=== PATIENT | female | born 1945 | race Caucasian/White ===

== ENCOUNTER 2025-06-16 09:02 | Inpatient (IN) | payer MEDICARE, MEDICAID, SELFPAY ==
[2025-06-16] VITALS (86 sets, daily range): BP systolic 87–139; BP diastolic 41–79; PULSE 55–119; RESP 10–98; TEMP 36.2–37.1; O2SAT 90–100; BMI 21.6
--- NOTE | 2025-06-16 10:35 | PD.EDADULT ---
ED General RME/HPI General Chief complaint: General Adult/Misc Complain Stated complaint: CRITICAL LABS Arrival date/time: 06/16/25 09:02 RME / HPI RME / HPI narrative: 79 year old female with history of COPD, uterine cancer, chronic pain with pain pump in right lower abdomen, depression, anxiety, and LLE DVT on Xarelto presents to the ED BIBA from [facility] for further evaluation and treatment of low hemoglobin today. Per SNF paperwork, patient had labs performed yesterday showing a hemoglobin was 3.5 and hematocrit 12.9. While in the ED patient has no complaints. Denies any blood in stool or urine. Related Data Previous Rx's ?Medication ?Instructions ?Recorded rivaroxaban 15 mg (42)-20 mg (9) See Rx Instructions PO .COMPLEX 07/18/24 tablets in a starter pack (Xarelto #51 tabs DVT-PE Treatment 30-Day Starter) Allergies Allergy/AdvReac Type Severity Reaction Status Date / Time acetaminophen (From Percocet) Allergy Verified 06/16/25 09:20 ceftriaxone Allergy Verified 06/16/25 09:20 codeine Allergy Verified 06/16/25 09:20 hydromorphone Allergy Verified 06/16/25 09:20 metoclopramide Allergy Verified 06/16/25 09:20 morphine Allergy Verified 06/16/25 09:20 oxycodone Allergy Verified 06/16/25 09:20 pentazocine Allergy Verified 06/16/25 09:20 promethazine Allergy Verified 06/16/25 09:20 Review of Systems Review of Systems Systems Reviewed: All systems reviewed, normal except as documented Past Medical History Past Medical History CARDIAC: Positive Cardiac Disorders RESPIRATORY: Positive Asthma REPRODUCTIVE: Positive Breast Cancer MUSCULOSKELETAL: Positive Musculoskeletal Disorders and Arthritis PSYCHO/SOCIAL: Positive Depression and Anxiety OTHER HISTORY: Positive Chemotherapy, Cancer and Breast Cancer Surgical History SURGICAL: Positive Abdominal Surgery, Gastric Bypass Surgery, Joint Replacement, Mastectomy (bilateral) and Hysterectomy Social History SMOKING STATUS: Former smoker SUBSTANCE USE: does not use ED Exam Narrative Physical exam: Physical Exam: General: The vital signs were reviewed. Patient appears incredibly pale including the conjunctiva and lips. The patient is non-toxic, in no apparent distress and appears healthy with a patent airway, no respiratory distress and has no apparent circulatory problems. Head & Scalp: Normocephalic, atraumatic. Face: Appears normal and is without lesions, deformity. Ears: Left external pinna appears normal. Right external pinna appears normal. Eyes: The sclera is anicteric. No obvious photophobia. The Left and Right Orbit/Lid/Conjunctiva appears normal without swelling, discoloration or injection. Nose: The nose is without deformity, discharge or tenderness; Throat: Appears normal. The mucous membranes are pink and moist without exudates, redness or mass seen. The tongue appears normal. Neck: The neck is supple and no apparent mass or adenopathy. Chest: The chest wall is normal in size and symmetry and has no chest wall tenderness or crepitus. The patient displays normal ventilator effort without retractions, accessory muscle use and has adequate air movement bilaterally with no wheezes and no rales. Cardiovascular: Regular rate and rhythm; No murmurs, rubs, or gallops; Gastrointestinal: There is a pain pump in the right lateral abdomen. The abdomen appears normal. No obvious hernias or mass. The abdomen is soft and benign, non-distended, with no pain, no guarding and no rebound tenderness. Bowel sounds are present and normal sounding. No CVA tenderness. Genitourinary: Rectal exam done brown stool guaiac negative. No masses felt. There is a copious amount of poop present. Back/Spine: Normal inspection Extremities/Musculoskeletal/lymphatic: The bilateral upper and lower extremities are warm. There is no evidence of arterial insufficiency. There is no evidence of venous insufficiency/edema. The patient spontaneously moves bilateral upper and lower extremities with no pain and no limitation of movement. There is no apparent, injury or trauma. Skin: The skin is warm, dry and intact. No rashes. No petechia. No purpura. No abnormal bruising. The color is appropriate with no cyanosis. Mental status/Psychiatric: Mental status is appropriate for age. The patient has no apparent delusions, visual hallucinations, no apparent audible hallucinations. The patient has no apparent suicidal thoughts/ideation and no apparent homicidal thoughts/ideation. Neurological: The patient is awake, alert, interactive, cordial, cooperative and is oriented to name and situation. The patient follows commands and answers historical question with no impairment. There is no visual disturbance apparent. The pupils are equal and reactive bilaterally with normal eye movements and no diplopia The bilateral upper and lower extremities have normal strength, normal range of motion and normal functioning. The gait, station and balance not tested due to acuity Course Quality Measures none Orders Category Date Time Status Admit to Inpatient Status Routine Admission 06/16/25 12:39 Active Patient Condition Routine Admission 06/16/25 12:39 Ordered Activity as Tolerated Routine Care 06/16/25 12:40 Ordered Bedside Blood Glucose NOW Care 06/16/25 10:36 Active EKG (ED ONLY) *Do not use* NOW Care 06/16/25 10:36 Completed Intake and Output Routine Care 06/16/25 12:40 Ordered Notify provider NEEDED Care 06/16/25 12:39 Active Obtain weight NOW Care 06/16/25 12:39 Active Post Transfusion H&H X1 Care 06/16/25 12:52 Active Sequential Compression Device QSHIFT Care 06/16/25 12:42 Active Transfuse,blood/blood products NOW Care 06/16/25 11:16 Active Consult to Gastroenterology Stat Cons 06/16/25 12:47 Ordered Diet Carbohydrate Consistent Low Diet 06/16/[address] chest abdomen pelvis wo Stat Exams 06/16/25 12:03 Completed EKG (ED Only) Stat Exams 06/16/25 10:36 Draft XR chest 1V portable Stat Exams 06/16/25 10:36 Completed Alcohol, Blood Medical Stat Lab 06/16/25 10:46 Completed Ammonia Stat Lab 06/16/25 10:46 Completed B-Type Natriuretic Peptide Stat Lab 06/16/25 10:46 Completed Blood Culture (Lab) Stat Lab 06/16/25 10:44 Received CBC AM DRAW Lab 06/17/25 05:00 Ordered CBC AM DRAW Lab 06/18/25 05:00 Ordered CBC AM DRAW Lab 06/19/25 05:00 Ordered CBC Stat Lab 06/16/25 10:46 Completed Comprehensive Metabolic Panel AM DRAW Lab 06/17/25 05:00 Ordered Comprehensive Metabolic Panel AM DRAW Lab 06/18/25 05:00 Ordered Comprehensive Metabolic Panel AM DRAW Lab 06/19/25 05:00 Ordered Comprehensive Metabolic Panel Stat Lab 06/16/25 10:46 Completed Direct Jennifer Stat Lab 06/16/25 10:46 Results Drug Screen,Urine Stat Lab 06/16/25 14:11 Completed Ferritin Stat Lab 06/16/25 12:25 Completed Folate Stat Lab 06/16/25 12:25 Completed Haptoglobin* Stat Lab 06/16/25 13:07 Received Hemoglobin and Hematocrit Stat Lab 06/16/25 12:25 Completed Iron Stat Lab 06/16/25 12:25 Completed Lactate (Lactic Acid) Stat Lab 06/16/25 10:46 Completed Lipid Panel AM DRAW Lab 06/17/25 05:00 Ordered Magnesium AM DRAW Lab 06/17/25 05:00 Ordered Magnesium AM DRAW Lab 06/18/25 05:00 Ordered Magnesium AM DRAW Lab 06/19/25 05:00 Ordered Path Review Blood Smear Stat Lab 06/16/25 10:46 Completed Phosphorous AM DRAW Lab 06/17/25 05:00 Ordered Phosphorous AM DRAW Lab 06/18/25 05:00 Ordered Phosphorous AM DRAW Lab 06/19/25 05:00 Ordered Prothrombin Time with INR Stat Lab 06/16/25 10:46 Completed Red Blood Cells Stat Lab 06/16/25 10:46 Results Reticulocyte Count Stat Lab 06/16/25 12:25 Completed Total Iron Binding Capacity Stat Lab 06/16/25 12:25 Completed Troponin I Stat Lab 06/16/25 10:46 Completed Type and Screen Stat Lab 06/16/25 10:46 Results Urinalysis Stat Lab 06/16/25 14:11 Completed Urinalysis, C/S if Indicated Stat Lab 06/16/25 14:11 Completed Venous Blood Gas Stat Lab 06/16/25 10:46 Completed Vitamin B12 Stat Lab 06/16/25 12:25 Completed Acetaminophen Tab [Tylenol Tab] Med 06/16/25 12:42 Active 650 mg PO Q6H PRN Albuterol/Ipratr Rt Raquel [Duoneb Rt Raquel] Med 06/16/25 12:49 Active 3 ml INH Q6HRRT PRN Fluoxetine HCl [PROzac] Med 06/17/25 09:00 Active 20 mg PO QDAY HYDROcodone/APAP 10/325 [[place] 10/325] Med 06/16/25 12:42 Active 1 tab PO Q4H PRN Lactulose Syrup [Enulose Syrup] Med 06/16/25 12:51 Discontinued 10 gm PO X1 ONE Melatonin Med 06/16/25 21:00 Active 3 mg PO HS Ondansetron Inj [Zofran Inj] Med 06/16/25 12:42 Active 4 mg IVP Q6H PRN Pantoprazole Inj [Protonix Inj] Med 06/16/25 21:00 Active 40 mg IVP Q12HR Pantoprazole/Ns 80Mg IV Premix [Protonix/NS 80mg IV Med 06/16/25 12:04 Discontinued Premix] 80 mg in 100 ml IV X1 Polyeth Glycol/Propylene Glyco [Miralax Pkt] Med 06/16/25 13:00 Active 17 gm PO QDAY Senna/Docusate Sod [Senokot S] Med 06/16/25 13:00 Active 1 tab PO QDAY Sodium Chloride 0.9% 1000 ml [Ns] 2,000 ml Med 06/16/25 10:34 Active IV 50 mls/hr Code Status Routine Oth 06/16/25 12:39 Ordered Oxygen Delivery PRN RT 06/16/25 12:42 Active Vital Signs Vital signs: Vital Signs Temperature 98.2 F 06/16/25 09:15 Pulse Rate 85 06/16/25 09:15 Respiratory Rate 18 06/16/25 09:15 Blood Pressure 107/51 L 06/16/25 09:15 Pulse Oximetry (%) 97 06/16/25 09:15 Oxygen Delivery Method Room Air 06/16/25 09:15 Pulse ox is 97% on room air which is adequate. Critical Care Time Critical Care Time Critical Care Time: Yes Total Critical Care Time (min.): 45 Attestation: The high probability of sudden, clinically significant deterioration in the patient's condition required the highest level of my preparedness to intervene urgently. The services I provided to this patient were to treat and/or prevent clinically significant deterioration. Services included the following: chart data review, reviewing nursing notes and/or old charts, documentation time, collection systems consultant collaboration regarding findings and treatment options, medication orders and management, direct patient care, vital sign assessments and ordering, interpreting and reviewing diagnostic studies and lab tests. Aggregate critical care time includes only time during which I was engaged in work directly related to the patient's care, as described above, whether at bedside or elsewhere in the Emergency Department. It did not include time spent performing other reported procedures or the services of residents, students, nurses or physician assistants. Discharge Plan Plan Patient Disposition: Admit Acute Care w/in Hospital Problem List Clinical Impression: Severe anemia, Microcytosis, Chronic pain MDM Narrative MDM hospital course: Patient was sent here for abnormal labs and reported on the nursing transfer paperwork shows the hemoglobin was 3.5 but no date was assigned to that number. Will get labs and transfuse accordingly. Patient has no acute complaints at this time of that she has chronic pain with chronic pain pump in the right lateral abdomen. Medical workup confirms the severe anemia. She is also got microcytic indices. The cause of her anemia is unclear there is no obvious blood loss in the GI track on rectal exam today. She has on Xarelto and so a scan of the chest abdomen pelvis looking for occult blood collection somewhere was ordered. Because of the severe anemia and the need for a large volume of blood and her age we can admit her for further workup of this severe anemia. Noted blood pressure has been averaging 101-107 range since she is here. She denied any injury or trauma. Her most recent hemoglobins were within 9-10 range in the last year. She states she had her last transfusion a long time ago. Of course patient could be nutritionally deficient and therefore iron studies were just ordered. Spoke with the hospitalist and they will be admitting. CT was done and found no occult blood he had an in the chest abdomen pelvis. Note this was reviewed after the patient was already admitted source of severe anemia is unclear at this time. Again possibly nutritional. Clinical Information Provided by patient and EMS Medical Records [facility]ed [facility] ([facility] admission 07/16/2024 through 07/19/2024 ), EMS and [facility] (I reviewed pmhx and medication list from [facility] ) Meds/Rx Considered, not Ordered None Labs/Rad/Tests considered, not Ordered None Chronic Illness/Social Conditions which may negatively complicate care or outcome(s)-explain: [facility]/debilitated EKG Interpretation EKG #1: Date/time of EK06/16/25 10:54 AM EKG interpretation: Sinus rhythm with occasional PVCs, rate 67, no STEMI Lab Interpretation Labs: see narrative above Imaging Imaging interpretation: see narrative above Radiology reports / interpretation(s): Ordering Physician: Williams Reynoso MD Date of Service: 06/16/25 Procedure(s): XR chest 1V portable Accession Number(s): [id number] cc: Praneeth Sheikh MD; Williams Reynoso MD; Ethan Wallace MD~ Examination: AP chest single view Technique one AP portable semiupright chest single view Date and time: June 16, 2025 1056 hours Comparison July 16, 2024 INDICATIONS: Chest pain today. FINDINGS: No significant cardiac enlargement Bilateral axillary surgical clips No lobar pneumonia or pulmonary edema Prominent osteopenia IMPRESSION: No pneumonia or pulmonary edema Dictated By: Ethan Wallace MD Signed By: <Electronically signed by Ethan Wallace MD in OV> 06/16/25 1116 Medication Administration(s) Medication Administration History Acetaminophen (Acetaminophen 325 Mg Tablet) 650 mg PO Q6H PRN PRN Reason: Shea 1-3 or Fever >100.3 Stop: 07/16/25 12:41 Hydrocodone Bitart/Acetaminophen (Hydrocodone/Apap 10/325 Tab) 1 tab PO Q4H PRN PRN Reason: PAIN SCALE 4-10(Mod-Sev Stop: 06/21/25 12:41 Last Admin: 06/16/25 13:18 Dose: 1 tab Documented By: CG Albuterol/Ipratropium (Albuterol/Ipratropium (Duoneb) Rt Raquel 3 Ml Nebu) 3 ml INH Q6HRRT PRN PRN Reason: Wheezing Stop: 07/16/25 12:59 Fluoxetine HCl (Fluoxetine Hcl 10 Mg Capsule) 20 mg PO QDAY VANESSA Stop: 07/17/25 08:59 Sodium Chloride (Ns) 2,000 mls @ 50 mls/hr IV .Q24H ONE Stop: 06/17/25 10:33 Last Admin: 06/16/25 13:18 Dose: 50 mls/hr Documented By: CG Melatonin (Melatonin 3 Mg Tablet) 3 mg PO HS VANESSA Stop: 07/16/25 20:59 Ondansetron HCl (Ondansetron Inj 2 Mg/Ml Inj 2 Ml) 4 mg IVP Q6H PRN; Protocol PRN Reason: NAUSEA OR VOMITING Stop: 07/16/25 12:41 Pantoprazole Sodium (Pantoprazole Inj 40 Mg Vial) 40 mg IVP Q12HR VANESSA Stop: 07/16/25 20:59 Polyethylene Glycol (Polyethylene Glycol 17 Gm Packet) 17 gm PO QDAY VANESSA Stop: 07/16/25 12:59 Last Admin: 06/16/25 14:01 Dose: Not Given Documented By: GM Non-Admin Reason: Patient Refused Sennosides (Senna/Docusate Sod 1 Tab Tablet) 1 tab PO QDAY VANESSA; Protocol Stop: 07/16/25 12:59 Last Admin: 06/16/25 14:36 Dose: 1 tab Documented By: CG Discontinued Medications Pantoprazole Sodium (Protonix/Ns 80mg Iv Premix) 80 mg in 100 mls @ 400 mls/hr IV X1 ONE Stop: 06/16/25 12:18 Last Infusion: 06/16/25 14:52 Dose: Infused Documented By: Admin: 06/16/25 14:33 Dose: 400 mls/hr Documented By: JOHN Iron Sucrose (Iron Sucrose Cplx Inj 20 Mg/Ml Vial 5 Ml) 100 mg IVP X1 ONE Stop: 06/16/25 16:05 Last Admin: 06/16/25 16:43 Dose: 100 mg Documented By: JOHN Lactulose (Lactulose Syrup 20 Gm/30 Ml Udc) 10 gm PO X1 ONE; Protocol Stop: 06/16/25 12:52 Last Admin: 06/16/25 14:34 Dose: Not Given Documented By: JOHN Non-Admin Reason: Patient Refused See above Diagnosis Most likely dx, and/or detailed dx discussion: Severe anemia Microcytosis Chronic pain Dispositon Disposition: Admit
--- NOTE | 2025-06-16 10:36 | EKG_ITS ---
[facility] Test Date: 2025-06-16 Pat Name: ED AMOS Department: Room: - Gender: Female [employer] Logger: : 1945 Requested By: Williams Reynoso Order Number: [id number] Reading MD: Williams Reynoso Measurements Intervals [place] Rate: 67 P: 98 [place]: 192 QRS: 49 QRSD: 90 T: 83 QT: 411 QTc: 436 Interpretive Statements SINUS RHYTHM WITH OCCASIONAL SUPRAVENTRICULAR PREMATURE COMPLEXES LOW QRS VOLTAGE [QRS DEFLECTION < 0.5/1.0 mV IN LIMB/CHEST LEADS] Compared to ECG 07/16/2024 16:22:06 First degree AV block no longer present /store/S0/[id number]/ecg/[id number].pdf
[2025-06-16 10:58] LABS: Lactate (Lactic Acid) 1.2 mMol/L (0.4-2.0)
[2025-06-16 11:00] LABS: Base Excess, Venous 2 (-3-3); O2 Saturation, Venous 95 % (96-97); PCO2, Venous 30 mmHg (36-56); PO2, Venous 57 mmHg (15-58); pH, Venous 7.54 (7.33-7.66)
--- NOTE | 2025-06-16 11:09 | PC.NURSE ---
Called teddy spoke with Jaison regarding all xray results, per Jaison he will contact Dr. Evelin strong reading images.
--- NOTE | 2025-06-16 11:10 | PC.NURSE ---
Called teddy spoke with Jaison regarding all xray results, per Jaison he will contact Dr. Evelin strong reading images.
[2025-06-16 11:11] LABS: Basophils # (Auto) 0.0 Thou/mm3 (0.0-0.2); Basophils % (Auto) 0 % (0-2.5); Eosinophils # (Auto) 0.1 Thou/mm3 (0.0-0.5); Eosinophils % (Auto) 4 % (0-10); Immature Granulocytes Auto 0.02 Thou/mm3 (0.00-0.00); Lymphocytes # (Auto) 0.5 Thou/mm3 (1.0-4.8); Lymphocytes % (Auto) 17 % (10-50); Mean Corpuscular HGB Conc 24.8 g/dl (31.0-37.0); Mean Corpuscular Hemoglobin 14.4 pg (25.0-35.0); Mean Corpuscular Volume 58 fL (80-100); Monocytes # (Auto) 0.3 Thou/mm3 (0.0-0.8); Monocytes % (Auto) 10 % (0-12); Neutrophils # (Auto) 1.9 Thou/mm3 (1.8-7.7); Neutrophils % (Auto) 68 % (37-80); Nucleated Red Blood Cell # 0.00 Thou/mm3 (0.00-0.00); Nucleated Red Blood Cell % 0 /100 WBC (0); Platelet Count 90 Thou/mm3 (140-440); RDW Standard Deviation 48.9 fL (36.4-46.3); Red Blood Count 2.02 Miln/mm3 (4.00-5.20)
[2025-06-16 11:14] LABS: White Blood Count 2.8 Thou/mm3 (3.6-11.0)
[2025-06-16 11:16] LABS: Hematocrit 11.7 % (36.0-46.0)
[2025-06-16 11:17] LABS: INR 1.5 (0.9-1.3); Prothrombin Time 16.2 Seconds (9.0-12.2)
[2025-06-16 11:21] LABS: Ammonia 15 uMol/L (11-32); B-Type Natriuretic Peptide 187 pg/mL (0-100)
[2025-06-16 11:30] LABS: Path Review Blood Smear Sent to Pathologist
[2025-06-16 11:36] LABS: Alanine Aminotransferase < 7 U/L (10-49); Albumin, Serum 3.8 gm/dL (3.4-4.8); Albumin/Globulin Ratio 1.9 (1.2-2.2); Alcohol, Blood Medical < 10.0 mg/dL (0-10.0); Alkaline Phosphatase 46 U/L (46-116); Anion Gap 7 (7-16); Aspartate Amino Transferase 11 U/L (0-34); BUN/Creatinine Ratio 23 Ratio (12-20); Bilirubin,Total 0.3 mg/dL (0.3-1.2); Blood Urea Nitrogen 14 mg/dL (9-23); Calcium 8.5 mg/dL (8.3-10.6); Calcium (Corrected) 8.7 mg/dL (8.5-10.1); Carbon Dioxide 27.1 mMol/L (20.0-31.0); Chloride 107 mMol/L (98-107); Creatinine (Component) 0.6 mg/dL (0.6-1.3); Estimated Creatinine Clearance 63.5 mL/min (>60); Globulin 2.0 gm/dL (2.3-3.5); Glucose 109 mg/dL (74-106); Osmolality,Calculated 282 (275-295); Potassium 3.9 mMol/L (3.4-5.1); Sodium 141 mMol/L (136-145); Total Protein 5.8 gm/dL (5.7-8.2); Troponin I < 0.020 ng/mL (0.0-0.045); eGFR > 60 See Note
[2025-06-16 12:00] LABS: Hemoglobin 2.9 g/dL (12.0-16.0)
--- NOTE | 2025-06-16 12:03 | XR_ITS ---
Examination: CT chest, without intravenous contrast. CT abdomen, without intravenous contrast. CT pelvis, without intravenous contrast. 2-D sagittal and coronal reconstructions. 3-D reconstructions. Date and time of exam:June 16, 2025 1233 hours INDICATIONS: Severe anemia unknown etiology, history pulmonary artery emboli on CT angiogram July 18, 2024 CTDI vol (mgy) 6.4 DLP (MGycm)450 Technique: Multiple CT images, 3.0 mm slice thickness, obtained chest, abdomen, pelvis, with the high-resolution 64 slice scanner.. Sagittal and coronal 2-D reconstructions are obtained. 3-D reconstructions Low dose protocols were performed. One or more of the following dose reduction techniques were used; automated exposure control, adjustment of the mA and/or KV according to patient size, use of iterative reconstruction technique. Findings: No thoracic aortic aneurysmal dilatation No paratracheal tracheobronchial or bronchopulmonary adenopathy No pneumonia, pulmonary edema or pleural disease 4 mm pulmonary nodule left upper lobe image 51 Retrocardiac gastric hernia. No focal liver or splenic lesion Absent gallbladder Common hepatic duct 20 mm No common bile duct stones noted No pancreatic or adrenal mass No renal or ureteral calculi, no hydronephrosis Abundant stool throughout the colon No obstruction No pericecal inflammatory change Urinary bladder intact Absent uterus No pelvic mass Severe osteopenia IMPRESSION: 4 mm pulmonary nodule left upper lobe No pneumonia or pulmonary edema Enlarged common hepatic duct 20 mm, recommend hepatobiliary sonography follow-up Large amounts of stool throughout the colon, no obstruction
[2025-06-16 12:48] LABS: Hematocrit 11.6 % (36.0-46.0); Hemoglobin 2.9 g/dL (12.0-16.0)
[2025-06-16 13:01] LABS: Folate 14.28 ng/mL (>5.38); Vitamin B12 794 pg/mL (211-911)
[2025-06-16 13:10] LABS: Immature Reticulocyte Fraction 31.1 % (3.0-15.9); Reticulocyte % (Auto) 1.5 % (0.5-1.5); Reticulocyte Absolute Auto 29.6 Biln/L (25.0-75.0); Reticulocyte Hgb Content 14.3 pg (28.0-35.0)
[2025-06-16] MEDS: SODIUM CHLORIDE 0.9% 1000 ML 2,000 ML 50 ML IV (13:18)
[2025-06-16 13:34] LABS: Ferritin 6 ng/mL (7.3-270.7); Iron 8 mcg/dL (50-170); Total Iron Binding Capacity 354 mcg/dL (250-425)
--- NOTE | 2025-06-16 14:03 | PD.RESHP ---
Documentation for date of: 06/16/25 Patient is 79-year-old female with a past medical history of COPD, diabetes mellitus type 2 non insulin depdent, history of PE on Xarelto, history of chronic pain disorder on Fentantly pump and norco, history of ovarian and breast cacner. Patient presented to the emergency room with chief complain of low hemoglobin after being sent to the emergency room form PCP. Patient presented with hgb of 2.9. Patient complaining of fatigue. Acute blood loss anemia, currently holding Xarelto given increased risk of bleeding, specially with ulcers. 3 units of PRBCs order and follow up with hgb and Hct post transfusion. Consult GI, Dr. Harrison, for possible EGD/Colonoscopy. FOBT pending, unable to obtain in ER. Reti count, Haptolgoin, and iron panel ordered. Iron X 1. Consult dr. Cosme for pancytopenia on admission. HPI History of Present Illness Chief complaint: Low hemoglobin at [facility] History of present illness: Patient is an 79-year-old female with past medical history of ovarian cancer, depression, anxiety, chronic pain (with pain pump), and left lower extremity DVT (on Xarelto) brought to the hospital for low hemoglobin. For approximately 6 weeks patient reports that she has had headaches and dizziness, poor appetite, and unintentional weight loss. She has been so unsteady at her fpc that she has not been able to get out of the chair to be showered. In addition she states that she has forced herself to eat but has still lost 17 pounds over the last 6 months, and 6 pounds over the last month (self-reported). Otherwise patient states that she is at her baseline. Patient is receiving 1 unit PRBCs, with 2 units on standby. Review of Systems Review of Systems Narrative Review of Systems: As per HPI; in addition, patient reports significant longstanding abdominal pain secondary to adhesions from ovarian cancer surgeries, blepharospasm, poor vision in both eyes with potential cataract in right eye, constipation (approximately 2 bowel movements a week) Past Medical History Past Medical History Comments PMH COMMENT: PMH: Ovarian cancer (diagnosed 2008; has not seen oncology in 7 years per patient), depression, anxiety, left lower extremity DVT, breast cancer, heel spurs, chronic pain (with SHOW HOST pump) PSH: Ovarian cancer surgery (with multiple follow-up procedures secondary to adhesions), double mastectomy (with placement and then removal of silicone breast implants secondary to allergic reaction followed by reconstructive surgery), cholecystectomy, surgery for heel spurs, gastric bypass Social history: [id number] smoker (17 years x 3 packs/day; quit in 1983); no alcohol or drug use Exam Vital Signs Temp Pulse Resp BP Pulse Ox O2 Del Method 98.4 F 77 20 119/55 L 97 Room Air 06/16/25 13:30 06/16/25 13:30 06/16/25 13:30 06/16/25 13:30 06/16/25 13:30 06/16/25 13:15 Narrative Exam Constitutional: Alert and oriented; able to provide own medical history HEENT: Obvious blepharospasm requiring patient to open left eye manually Respiratory: Lungs clear to auscultation Cardiovascular: Regular rate and rhythm Abdominal: Significant left-sided abdominal pain on palpation; patient states that this is not new and is secondary to adhesions from previous surgeries Extremity: No lower extremity edema Skin: Extremely pale Results: Labs 06/17/25 04:54 06/17/25 04:54 Labs: Short CBC 06/16/25 06/16/25 Range/Units 10:46 12:25 WBC 2.8 L (3.6-11.0) Thou/mm3 Hgb 2.9 L* 2.9 L* (12.0-16.0) g/dL Hct 11.7 L* 11.6 L* (36.0-46.0) % Plt Count 90 L (140-440) Thou/mm3 BMP 06/16/25 10:46 Sodium 141 Potassium 3.9 Chloride 107 Carbon Dioxide 27.1 BUN 14 Creatinine 0.6 Glucose 109 H Calcium 8.5 Cardiac Enzymes 06/16/25 Range/Units 10:46 Troponin I < 0.020 (0.0-0.045) ng/mL Liver Function 06/16/25 Range/Units 10:46 Total Bilirubin 0.3 (0.3-1.2) mg/dL AST 11 (0-34) U/L ALT < 7 L (10-49) U/L Alkaline Phosphatase 46 (46-116) U/L Albumin 3.8 (3.4-4.8) gm/dL ABG Interpretation ABG results: 06/16/25 10:46 VBG pH 7.54 VBG pCO2 30 L VBG pO2 57 VBG Base Excess 2 Quality Measures Quality Measures none Advance care planning discussed with:: patient (snf paperwork ) Medications Home Medications and Allergies Allergies Allergy/AdvReac Type Severity Reaction Status Date / Time acetaminophen (From Percocet) Allergy Verified 06/16/25 09:20 ceftriaxone Allergy Verified 06/16/25 09:20 codeine Allergy Verified 06/16/25 09:20 hydromorphone Allergy Verified 06/16/25 09:20 metoclopramide Allergy Verified 06/16/25 09:20 morphine Allergy Verified 06/16/25 09:20 oxycodone Allergy Verified 06/16/25 09:20 pentazocine Allergy Verified 06/16/25 09:20 promethazine Allergy Verified 06/16/25 09:20 Visit Medications Acetaminophen (Acetaminophen 325 Mg Tablet) 650 mg PO Q6H PRN PRN Reason: Shea 1-3 or Fever >100.3 Stop: 07/16/25 12:41 Hydrocodone Bitart/Acetaminophen (Hydrocodone/Apap 10/325 Tab) 1 tab PO Q4H PRN PRN Reason: PAIN SCALE 4-10(Mod-Sev Stop: 06/21/25 12:41 Last Admin: 06/16/25 13:18 Dose: 1 tab Albuterol/Ipratropium (Albuterol/Ipratropium (Duoneb) Rt Raquel 3 Ml Nebu) 3 ml INH Q6HRRT PRN PRN Reason: Wheezing Stop: 07/16/25 12:59 Fluoxetine HCl (Fluoxetine Hcl 10 Mg Capsule) 20 mg PO QDAY VANESSA Stop: 07/17/25 08:59 Sodium Chloride (Ns) 2,000 mls @ 50 mls/hr IV .Q24H ONE Stop: 06/17/25 10:33 Last Admin: 06/16/25 13:18 Dose: 50 mls/hr Melatonin (Melatonin 3 Mg Tablet) 3 mg PO HS VANESSA Stop: 07/16/25 20:59 Ondansetron HCl (Ondansetron Inj 2 Mg/Ml Inj 2 Ml) 4 mg IVP Q6H PRN; Protocol PRN Reason: NAUSEA OR VOMITING Stop: 07/16/25 12:41 Pantoprazole Sodium (Pantoprazole Inj 40 Mg Vial) 40 mg IVP Q12HR VANESSA Stop: 07/16/25 20:59 Polyethylene Glycol (Polyethylene Glycol 17 Gm Packet) 17 gm PO QDAY VANESSA Stop: 07/16/25 12:59 Last Admin: 06/16/25 14:01 Dose: Not Given Sennosides (Senna/Docusate Sod 1 Tab Tablet) 1 tab PO QDAY VANESSA; Protocol Stop: 07/16/25 12:59 Discontinued Medications Pantoprazole Sodium (Protonix/Ns 80mg Iv Premix) 80 mg in 100 mls @ 400 mls/hr IV X1 ONE Stop: 06/16/25 12:18 Lactulose (Lactulose Syrup 20 Gm/30 Ml Udc) 10 gm PO X1 ONE; Protocol Stop: 06/16/25 12:52 Assessment & Plan Plan Patient is an 79-year-old female with past medical history of ovarian cancer (diagnosed 2008), depression, anxiety, left lower extremity DVT, breast cancer, heel spurs, chronic pain (with pain pump) presenting to the hospital with low hemoglobin. #Symptomatic Acute Microcytic Anemia #GI Bleed #History of Pulmonary Embolism #Pancytopenia Patient presented with acute anemia, likely microcytic given MCV, concern for lower GI bleed history xarelto use, given increased risk of Xarelto with bleeding in ulcers, ulcer can not be ruled out vs lower GI Bleed vs malignancy given pancytopenia Diagnostics: 2.9 (confirmed on repeat; previous baseline was around 10 as of 06/2024), platelets were 90 (previous baseline was 230 as of 06/2024), INR of 1.5 (previous baseline was 1.1 as of 06/2024). Iron is also low (8); BNP is high (187). Plan: -IV Iron Sucrose 100 mg X 1 -Protonix 40 mg BID -HOLD Xarelto -3 units of PRBCs -Repeat Post Transfusion, Hgb & Hct after 2 units, may transfuse 3 unit if need be -FOBT -Iron Panel, Haptoglobin, Reticulocyte Count, B12, Folate -Consult Dr. Harrison, appreciate recommendations -Consult Dr. Cosme, appreciate recommendations -compression device, no anticoagulation, given risk of bleeding #History of Major Depression Patient has a past medical history of Major Depression per chart review from SNF. Patient's home medication of Fluoxetine 20 mg PO Qday. No signs of SI or HI. Plan: -Continue Fluoxetine 20 mg PO Qday -Monitor for SI or HI. #Constipation Per images, patient has constipation, likely secondary to Opioid dependece given history of Fentanly pump and Norc 10. Given acute anemia, lactulose X 1 and Mirlax X 1 only. Continue to monitor BP. Plan: -Lactulose X 1 -Mirlax X1 -Senna Scheduled #Chronic Pain #History of Blepharospasm #Generalized Muscle weakness Patient has an extensive history of Opioid use disorder for chronic pain, likely secondary to surgeries and history of malignancy. Plan: -Monitor for signs of respiratory depression -continue SHOW HOST pump, norco 10 as per home -Narcan PRN #Hx COPD Patient has a past medical history of COPD per chart review from SNF, home medication includes Ipratroipum-Albuterol Plan -Continue Albuterol/Ipratropium PRN #History of Ovarian/Breast Cancer Health Maintenance: Disp: Pt is currently admitted to floors for further management of acute blood loss anemia, pending blood transfusion, repeat post transfusion Hgb & Hct. FEN: Regular Diet DVT: Compression Device Code: DNR Case Discussed with Attending Dr. Goldman and resident Dr. Kristofer Conde PGY 1 Internal Medicine - The patient's plan was discussed with attending Dr. Jones Miner MD PGY2 Internal Medicine Attending Provider Attestation/Addendum I have examined the patient, reviewed labs and imaging findings, discussed the case with the resident(s), and reviewed entered orders. I agree with the plan of care as outlined in this note, with these additional summaries/recommendations: After examination of the patient and review of the clinical data, I feel that this patient needs admission to the hospital for further treatment and evaluation. Patient is a 79-year-old female with a medical history of uterine cancer, urinary incontinence, COPD on home oxygen, chronic constipation, seasonal allergies, primary hypertension, deep vein thrombosis on Xarelto, and insomnia presents to [facility] emergency department on 06/16/2025 with chief complaint of abnormal lab work. Patient is a resident at [facility] transitional care and had a hematology panel done yesterday which revealed severe anemia. Patient seen at bedside. She appears pale and has conjunctival pallor. Patient diagnosed with symptomatic anemia, pancytopenia, iron deficiency anemia, and possibly acute blood loss anemia secondary to GI bleed. For patient's symptomatic anemia 3 units PRBCs have been ordered. We will transfuse 2 units and check posttransfusion hemoglobin/hematocrit and transfuse further as needed. Order FOBT. Consult gastroenterology,. Patient also noted to have pancytopenia with WBC count 2.8, hemoglobin 2.9, and thrombocytopenia at 90. This is likely multifactorial secondary to possible acute blood loss plus severe iron deficiency anemia with ferritin 6, and possibly anemia of chronic disease from return of malignancy. Patient has a history of uterine/ovarian and breast cancer. She reportedly has not followed up with an oncologist in many years and has lost 17 pounds in the last couple months. Consult in-house oncology, recommendations appreciated. Patient has fentanyl pain pump which we can continue. Hold home Xarelto for history of deep vein thrombosis. SCDs okay for now. Risks and benefits of holding anticoagulation explained to patient. CT abdomen and pelvis showed large amount of stool throughout the colon although we will be cautious with laxatives in the setting of potential GI bleed. CT revealed enlarged common hepatic duct which is most likely secondary to previous cholecystectomy. Patient will be admitted to telemetry. Patient updated on the plan and agreement. All questions answered to satisfaction. Please see residents note for additional details of management. Dr. Jones MD
[2025-06-16] MEDS: PANTOPRAZOLE/NS 80MG IV PREMIX 80 MG/100 ML BAG 400 MG IV (14:33)
[2025-06-16] MEDS: SENNA/DOCUSATE SOD 1 TAB TABLET PO (14:36)
[2025-06-16 14:37] LABS: Collection Type, Urine Catheter
[2025-06-16 14:46] LABS: Bilirubin,Urine Negative (Negative); Blood,Urine Negative (Negative); Clarity,Urine Clear (Clear/Hazy); Color,Urine Yellow (Lt Yel-Yel); Culture Indicated,Urine Not Indicated; Glucose, Urine Negative (Negative); Ketones,Urine Negative (Negative); Leukocyte Esterase,Urine Positive (Negative); Nitrite,Urine Negative (Negative); PH,Urine 5.5 (5.0-7.0); Protein,Urine Negative (Neg - Trace); RBC,Urine < 1 /hpf (0-3); Specific Gravity,Urine 1.021 (1.001-1.035); Squamous Epithelial Cell,Urine 1 /hpf (0-5); Urobilinogen,Urine Negative mg/dL (0.0-1.0); WBC,Urine 2 /hpf (0-5)
[2025-06-16 14:53] LABS: Amphetamine/Methamp Scrn,U Negative (Negative); Barbiturate Screen,Urine Negative (Negative); Benzodiazepines Screen,Urine Negative (Negative); Benzoylecgonine Screen, Ur Negative (Negative); Fentanyl Screen,Urine Positive (Negative); Opiate Screen,Urine Positive (Negative); THC Screen,Urine Negative (Negative)
[2025-06-16] MEDS: IRON SUCROSE CPLX INJ 20 MG/ML VIAL 5 ML 100 MG IVP (16:43)
--- NOTE | 2025-06-16 18:34 | ESCONSULT_ITS ---
HPI Data of Consult Requesting Physician: Casimiro Goldamn MD Primary Care Provider: Praneeth Sheikh MD Consult Narrative Reason for consult: severe anemia History of present illness: 79-year-old female with a past medical history of COPD, ovarian cancer in 2008, breast cancer in 1991, chronic pain managed with an intrathecal pain pump in the right lower abdomen, and a history of left lower extremity DVT on Xarelto, presented to the ED on 06/16 for evaluation of low hemoglobin. She was transported by ambulance from [facility]. The patient reports feeling cold and fatigued but denies any other acute complaints. She notes unintentional weight loss of 6 pounds over the past month despite increased efforts to eat. She attributes some of this to oral blisters that developed a few weeks ago, which made eating difficult at the time. She also endorses occasional lightheadedness, particularly with increased activity, which improves upon sitting. Additionally, she reports intermittent palpitations. She denies chest pain, shortness of breath, weakness, hematochezia, hematemesis, easy bruising, or NSAID use. Her last colonoscopy was performed over 10 years ago and was reportedly normal. ED Course - Vitals: BP 107/51, HR 85, RR 18, T 98.2F, O2 sat 97% on room air - Labs: WBC 2.8, Hgb 2.9, Hit 11.7, MCV 58, Plt 90, pending blood smear; PT 16.2, INR 1.5; BUN 14, Cr 0.6, BUN:Cr ratio 23, Iron 8, TIBC 354, Ferritin 6; troponin < 0.020, BNP 187, UA showed positive leukocyte esterase and negative bacteria - Imaging: CXR showed no pneumonia or pulmonary edema, EKG showed sinus rhythm with occasional supraventricular premature complexes, CT chest showed 4 mm pulmonary nodule in L upper lobe; CTAP showed enlarged common hepatic duct 20mm, large amounts of stool throughout colon, no obstruction - Treatment: sodium chloride 50 mls/hr, hydrocodone/acetaminophen 1 tab, Pantoprazole 400 mls/hr, iron sucrose 100 mg x1, sennosides 1 tab. Patient refused lactulose and polyethylene glycol. Transfused with 1 unit of pRBCs. cc:: cc: Casimiro Goldman MD Review of Systems Review of Systems Narrative Review of Systems: All 13 review of systems are negative excepted listed above in HPI. Past Medical History Past Medical History Comments PMH COMMENT: PMH: as stated in HPI + longstanding abdominal pain secondary to adhesions from ovarian cancer surgeries, blepharospasm, constipation, depression, anxiety PSHx: appendectomy, cholecystectomy, hysterectomy, double mastectomy, gastric bypass, bilateral total knee replacement Allergies: acetaminophen, ceftriaxone, codeine, Dilaudid, Reglan, morphine, oxycodone, promethazine, pentazocine Medications: pending med rec Social history: 51 pack year smoker (17 years x 3 packs a day; quit in 1983), no alcohol or illicit drug use Meds Home Medications and Allergies Allergies Allergy/AdvReac Type Severity Reaction Status Date / Time acetaminophen (From Percocet) Allergy Verified 06/16/25 09:20 ceftriaxone Allergy Verified 06/16/25 09:20 codeine Allergy Verified 06/16/25 09:20 hydromorphone Allergy Verified 06/16/25 09:20 metoclopramide Allergy Verified 06/16/25 09:20 morphine Allergy Verified 06/16/25 09:20 oxycodone Allergy Verified 06/16/25 09:20 pentazocine Allergy Verified 06/16/25 09:20 promethazine Allergy Verified 06/16/25 09:20 Exam Vital Signs Temp Pulse Resp BP Pulse Ox O2 Del Method 98.2 F 71 16 120/72 96 Room Air 06/16/25 18:31 06/16/25 18:31 06/16/25 18:31 06/16/25 18:31 06/16/25 18:31 06/16/25 18:16 Narrative Exam Physical Exam General: awake and in no acute distress, conversational HEENT: normocephalic, atraumatic, dry mucuous membranes of mouth, no mouth ulcers, eyes were closed due to blepharospasm Heart: RRR, normal S1 and S2, no murmurs, no edema in lower extremities Lungs: clear to auscultation with no wheezing or crackles Abdomen: soft, non distended, pain pump in right lateral abdomen, no guarding and no rebound tenderness Neurologic: alert and oriented x3, no gross neurological deficit, and patient able to move all 4 extremities Skin: no rash, no ecchymosis, extremely pale Results Labs 06/16/25 12:25 06/16/25 10:46 Labs: Short CBC 06/16/25 06/16/25 Range/Units 10:46 12:25 WBC 2.8 L (3.6-11.0) Thou/mm3 Hgb 2.9 L* 2.9 L* (12.0-16.0) g/dL Hct 11.7 L* 11.6 L* (36.0-46.0) % Plt Count 90 L (140-440) Thou/mm3 BMP 06/16/25 10:46 Sodium 141 Potassium 3.9 Chloride 107 Carbon Dioxide 27.1 BUN 14 Creatinine 0.6 Glucose 109 H Calcium 8.5 Cardiac Enzymes 06/16/25 Range/Units 10:46 Troponin I < 0.020 (0.0-0.045) ng/mL Liver Function 06/16/25 Range/Units 10:46 Total Bilirubin 0.3 (0.3-1.2) mg/dL AST 11 (0-34) U/L ALT < 7 L (10-49) U/L Alkaline Phosphatase 46 (46-116) U/L Albumin 3.8 (3.4-4.8) gm/dL Urine 06/16/25 Range/Units 14:11 Urine Color Yellow (Lt Yel-Yel) Urine Clarity Clear (Clear/Hazy) Urine pH 5.5 (5.0-7.0) Ur Specific Ute 1.021 (1.001-1.035) Urine Protein Negative (Neg - Trace) Urine Glucose (UA) Negative (Negative) ABG Interpretation ABG results: 06/16/25 10:46 VBG pH 7.54 VBG pCO2 30 L VBG pO2 57 VBG Base Excess 2 Assessment and Plan Additional Assessment & Plan Additional Plan: 79-year-old female with a past medical history of COPD, ovarian cancer in 2008, breast cancer in 1991, chronic pain managed with an intrathecal pain pump in the right lower abdomen, and a history of left lower extremity DVT on Xarelto admitted for severe anemia of unclear source. #Severe anemia of unclear etiology Critically low hemoglobin (Hgb 2.9, Hct 11.7) and associated pancytopenia (WBC 2.8, Plt 90); retic count 1.5 MCV 58, Iron 8, Ferritin 6, TIBC 354 - blood smear pending DDX: GI blood loss vs bone marrow suppression vs hematologic malignancy vs nutritional deficiencies CT abd/pelvis: enlarged common hepatic duct 20mm, large amounts of stool throughout colon, no obstruction Plan - rule out GI source of bleeding: schedule for fiberoptic EGD and colonoscopy with potential biopsy and therapeutic intervention under moderate IV sedation - bowel prep with golytely with clear liquid diet, once clear then NPO - FOBT pending - continue IV protonix 40 mg BID - continue pRBC transfusions as needed based on symptoms and hemoglobin trend - monitor H&H Patient plan of care was discussed with attending physician, Dr. Harrison. Ashley Eckert DO PGY-1 attending attestation Patient examined Laboratory data reviewed Imaging studies reviewed Discussed the care plan in detail Schedule the patient for upper endoscopy and colonoscopy after GoLytely prep for tomorrow Also recommend hematology consultation for possible bone marrow biopsy and aspirate Thank you for the opportunity to participate in the care of this patient
--- NOTE | 2025-06-16 19:05 | PC.NURSE ---
Wire Stitcher Machine assumes care of patient at this time, pt is noted to be A/O x 3 with c/o chronic generalized pain, pt rates pain 4/10 at this time, pt is tolerating PRBCs transfusion at a rate of 175 ml/hr, 3 of 3 units at this time. Pt noted to have pain pump to R lower abd. bed in low position and locked with side rails up x 2 and call light in reach of patient
--- NOTE | 2025-06-16 19:50 | PC.NURSE ---
assisted pt off bed reveles. florin care provided, new brief and purewick in place.
--- NOTE | 2025-06-16 20:38 | PC.NURSE ---
Report called to floor nurse CLARENCE Lopez
[2025-06-16] MEDS: MELATONIN 3 MG TABLET PO (22:00)
[2025-06-16 22:19] LABS: Hematocrit 26.4 % (36.0-46.0); Hemoglobin 8.9 g/dL (12.0-16.0)
[2025-06-16] MEDS: NA SU/NAHCO3/KC/PEG (Golytely) 4,000 ML BTL 4000 ML PO (22:55)
[2025-06-17] VITALS (9 sets, daily range): BP systolic 112–141; BP diastolic 61–81; PULSE 55–85; RESP 15–97; TEMP 36.2–36.8; O2SAT 95–97; BMI 21.9
[2025-06-17 05:35] LABS: Basophils # (Auto) 0.0 Thou/mm3 (0.0-0.2); Basophils % (Auto) 1 % (0-2.5); Eosinophils # (Auto) 0.1 Thou/mm3 (0.0-0.5); Eosinophils % (Auto) 2 % (0-10); Hematocrit 26.4 % (36.0-46.0); Immature Granulocytes Auto 0.09 Thou/mm3 (0.00-0.00); Lymphocytes # (Auto) 0.3 Thou/mm3 (1.0-4.8); Lymphocytes % (Auto) 6 % (10-50); Mean Corpuscular HGB Conc 33.0 g/dl (31.0-37.0); Mean Corpuscular Hemoglobin 23.8 pg (25.0-35.0); Mean Corpuscular Volume 72 fL (80-100); Monocytes # (Auto) 0.5 Thou/mm3 (0.0-0.8); Monocytes % (Auto) 9 % (0-12); Neutrophils # (Auto) 4.1 Thou/mm3 (1.8-7.7); Neutrophils % (Auto) 80 % (37-80); Nucleated Red Blood Cell # 0.04 Thou/mm3 (0.00-0.00); Nucleated Red Blood Cell % 1 /100 WBC (0); Platelet Count 89 Thou/mm3 (140-440); RDW Standard Deviation 69.8 fL (36.4-46.3); Red Blood Count 3.65 Miln/mm3 (4.00-5.20); White Blood Count 5.1 Thou/mm3 (3.6-11.0)
[2025-06-17 06:12] LABS: Hemoglobin 8.7 g/dL (12.0-16.0)
[2025-06-17 06:20] LABS: Alanine Aminotransferase < 7 U/L (10-49); Albumin, Serum 3.5 gm/dL (3.4-4.8); Albumin/Globulin Ratio 1.8 (1.2-2.2); Alkaline Phosphatase 47 U/L (46-116); Anion Gap 11 (7-16); Aspartate Amino Transferase 14 U/L (0-34); BUN/Creatinine Ratio 20 Ratio (12-20); Bilirubin,Total 0.8 mg/dL (0.3-1.2); Blood Urea Nitrogen 10 mg/dL (9-23); Calcium 8.2 mg/dL (8.3-10.6); Calcium (Corrected) 8.6 mg/dL (8.5-10.1); Carbon Dioxide 24.3 mMol/L (20.0-31.0); Cardiac Risk Estimate 3.3 RATIO (3.7-5.6); Chloride 107 mMol/L (98-107); Cholesterol 126 mg/dL (132-200); Creatinine (Component) 0.5 mg/dL (0.6-1.3); Estimated Creatinine Clearance 76.2 mL/min (>60); Globulin 1.9 gm/dL (2.3-3.5); Glucose 85 mg/dL (74-106); HDL Cholesterol 38 mg/dL (40-60); LDL Cholesterol,Calculated 68 mg/dL (0-130); Magnesium 1.4 mg/dL (1.6-2.6); Osmolality,Calculated 281 (275-295); Phosphorous 2.4 mg/dL (2.4-5.1); Potassium 3.9 mMol/L (3.4-5.1); Sodium 142 mMol/L (136-145); Total Protein 5.4 gm/dL (5.7-8.2); Triglycerides 98 mg/dL (30-150); eGFR > 60 See Note
--- NOTE | 2025-06-17 07:40 | XR_ITS ---
Examination: Abdomen sonogram, Limited Date and time of exam: June 17, 2025 0859 hours INDICATIONS: Enlarged common bile duct [address] abdomen study yesterday, June 16, 2025 Technique: Real-time villalba scale transabdominal sonographic images of the upper abdomen obtained. Findings: Absent gallbladder Common bile duct enlarged 13 mm no definite stones incompletely visualized Pancreatic head 2.4 cm Liver 14 cm intrahepatic biliary tract dilatation Normal hepatopedal portal venous flow Patent IVC IMPRESSION: Enlarged common bile duct incompletely visualized Consider MRCP follow-up to exclude common bile duct stones or stricture
--- NOTE | 2025-06-17 07:48 | ESCONSULT_ITS ---
HPI Data of Consult Consult date: 06/17/25 Requesting Physician: Casimiro Goldman MD Primary Care Provider: Praneeth Sheikh MD Consult Narrative Reason for consult: History of prior malignancies History of present illness: Patient resident of [facility] facility [facility] with prior history of major cancer treated between 20 and 30 years ago at [facility] in [place]. Initially ovarian cancer treated with surgery and chemo as well as breast cancer treated with double mastectomy. According to daughter gene testing was done and patient not BRCA gene positive. Also has dealt with chronic pain thought to be due to adhesions related to prior surgeries and has intrathecal patient has been seen by Dr. Harrison and pain pump being managed by Dr. Ibarra pain specialist. Over the past several months patient has that general malaise fatigue and weight loss and went brought to the ER, noted to have profound low hemoglobin 2.9 and hematocrit 11.7. Chest abdomen pelvis 06/16/2025 revealed 4 mm pulmonary nodule left upper lobe enlarged hepatic duct 20 mm and large amount of stool. Patient has been seen by Dr. Harrison and upper and lower endoscopy has been planned. Patient referred for oncological consultation. cc:: cc: Casimiro Goldman MD Past Medical History Social History SOCIAL: Greater than [id number] history of smoking quit 1983 no alcohol or drug use Past Medical History Comments PMH COMMENT: Prior breast cancer and ovarian cancer treated with prior surgery and chemotherapy between 20 and 30 years ago in [place]. Chronic pain thought to be due to adhesions on intrathecal pain pump resident of [facility] care. COPD history of blepharospasm history of gastric bypass cholecystectomy Meds Home Medications and Allergies Allergies Allergy/AdvReac Type Severity Reaction Status Date / Time acetaminophen (From Percocet) Allergy Verified 06/16/25 09:20 ceftriaxone Allergy Verified 06/16/25 09:20 codeine Allergy Verified 06/16/25 09:20 hydromorphone Allergy Verified 06/16/25 09:20 metoclopramide Allergy Verified 06/16/25 09:20 morphine Allergy Verified 06/16/25 09:20 oxycodone Allergy Verified 06/16/25 09:20 pentazocine Allergy Verified 06/16/25 09:20 promethazine Allergy Verified 06/16/25 09:20 Exam Vital Signs Temp Pulse Resp BP Pulse Ox O2 Del Method 97.4 F 61 18 112/68 96 Room Air 06/17/25 04:00 06/17/25 04:00 06/17/25 04:00 06/17/25 04:00 06/17/25 04:00 06/17/25 04:00 Narrative Exam Tired appearing but comfortable Results Labs 06/17/25 04:54 06/17/25 04:54 Labs: Short CBC 06/16/25 06/16/25 06/16/25 Range/Units 10:46 12:25 22:06 WBC 2.8 L (3.6-11.0) Thou/mm3 Hgb 2.9 L* 2.9 L* 8.9 L D (12.0-16.0) g/dL Hct 11.7 L* 11.6 L* 26.4 L D (36.0-46.0) % Plt Count 90 L (140-440) Thou/mm3 06/17/25 Range/Units 04:54 WBC 5.1 D (3.6-11.0) Thou/mm3 Hgb 8.7 L (12.0-16.0) g/dL Hct 26.4 L (36.0-46.0) % Plt Count 89 L (140-440) Thou/mm3 BMP 06/16/25 06/17/25 10:46 04:54 Sodium 141 142 Potassium 3.9 3.9 Chloride 107 107 Carbon Dioxide 27.1 24.3 BUN 14 10 Creatinine 0.6 0.5 L Glucose 109 H 85 Calcium 8.5 8.2 L Cardiac Enzymes 06/16/25 Range/Units 10:46 Troponin I < 0.020 (0.0-0.045) ng/mL Liver Function 06/16/25 06/17/25 Range/Units 10:46 04:54 Total Bilirubin 0.3 0.8 D (0.3-1.2) mg/dL AST 11 14 (0-34) U/L ALT < 7 L < 7 L (10-49) U/L Alkaline Phosphatase 46 47 (46-116) U/L Albumin 3.8 3.5 (3.4-4.8) gm/dL Urine 06/16/25 Range/Units 14:11 Urine Color Yellow (Lt Yel-Yel) Urine Clarity Clear (Clear/Hazy) Urine pH 5.5 (5.0-7.0) Ur Specific [place] 1.021 (1.001-1.035) Urine Protein Negative (Neg - Trace) Urine Glucose (UA) Negative (Negative) ABG Interpretation ABG results: 06/16/25 10:46 VBG pH 7.54 VBG pCO2 30 L VBG pO2 57 VBG Base Excess 2 Assessment and Plan Additional Assessment & Plan Additional Plan: 1. [facility] transitional patient admitted with significant anemia awaiting endoscopic procedures, Dr. Harrison. 2. History of ovarian cancer and breast cancer between 20 and 30 years ago treated with prior surgeries chemotherapy in [place]. BRCA genes negative according to daughter. 3. Chronic pain thought related to adhesions related to prior abdominal pelvic surgeries on intrathecal pain pump managed by Dr. Ibarra. 4. I ordered common tumor markers for breast ovary. CEA CA 125 CA 15-3 Thank you for allowing me to evaluate this patient.
[2025-06-17] MEDS: SENNA/DOCUSATE SOD 1 TAB TABLET PO (08:02)
[2025-06-17] MEDS: Magnesium Sulfate 2 GM Ivpb 2 GM/50 ML BAG IV (08:03)
[2025-06-17 09:24] LABS: CA 125 5.0 U/mL (<30.2); CA 15-3 10.9 U/mL (<32.4); Carcinoembryonic Antigen 3.1 ng/mL (0.0-5.0)
--- NOTE | 2025-06-17 10:09 | PD.RESPRO ---
Documentation for date of: 06/17/25 No overnight events. Patient examined at bedside. Patient presented with symptomatic microcytic anemia with concern for acute blood loss in the setting of Xarelto. MCV on admission 58 with a hemoglobin of 2.9 which improved after 3 units of PRBCs, hemoglobin during morning labs 8.7 and MCV of 72, which improved. Pancytopenia resolved iron panel noted iron deficiency which was suspected given the use of Xarelto and MCV low MCV on admission. Iron panel: Iron 8, TIBC 354, ferritin 6 (low) reticulocyte count within normal limits. Likely in the setting of iron deficiency no increase in reticulocyte count which would suggest hemolysis or depression which would suggest bone marrow suppression. B12 and folic acid within normal limits thus macrocytic anemia less likely. Continue to hold Xarelto. Pending colonoscopy and endoscopy. Despite GoLytely, patient has had minimal bowel movements. Patient continues to be not cleared likely in the setting of chronic opioid use disorder with constipation. suppository added. Dr. Harrison continues to follow, GI. Tumor markers obtained by consulting radiation oncology, Dr. Cosme, within normal limits. CEA 3.1, CEA 1510.9, CA125 5 . Concern for pancytopenia and possible malignancy given extensive history less likely but cannot be ruled out patient would likely benefit from follow-up with repeat chest x-ray given pulmonary nodule. Common bile duct dilated with 20 mm, which could be a common finding in the setting of an absent gallbladder likely from cholecystectomy. Liver ultrasound continue to show enlarged common bile duct. Continue to monitor as less concern for possible obstruction given total T. bili, AST, and ALT within normal limits. Continue to monitor. Continue to replete electrolytes as needed. Subjective Subjective Interval history: Overnight, patient was transfused an additional 3 units RBCs due to low hemoglobin, now total 6 units. Patient seen and examined at bedside this AM. 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 Endorsed diffuse abdominal pain which is chronic for her. Denies chest pain, shortness of breath, lightheadedness. Labs and vitals were reviewed. Hemoglobin now 8.9, platelet slowly dropping, now 89. Iron panel likely indicates iron deficiency anemia, which is concerning for GI bleed/malignancy in elderly patients. NPO after midnight and currently taking GoLytely prep, pending colonoscopy tonight. Endoscopy at later time. Will continue to hold Xarelto, follow up hemoglobin tomorrow after procedure. Review of systems otherwise negative except what is mentioned above. Exam Vital Signs Temp Pulse Resp BP Pulse Ox O2 Del Method 97.2 F 62 16 132/61 H 97 Room Air 06/17/25 08:00 06/17/25 08:00 06/17/25 08:00 06/17/25 08:00 06/17/25 08:00 06/17/25 08:00 Narrative Exam Physical Exam General: Awake and in no acute distress. Conversational. Elderly woman laying in bed. Eyes unable to open due to blepharospasm. HEENT: Normocephalic, atraumatic, mucous membranes moist. Heart: Regular rate and rhythm, normal S1 and S2, no murmurs appreciated. Lungs: Clear to auscultation with no wheezing or crackles. Abdomen: Soft, nondistended, positive bowel sounds. Diffuse abdominal tenderness, chronic. SPRING UPHOLSTERER pump subcutaneous in right lower quadrant. No guarding or rebound tenderness. Neurologic: Alert and oriented x3, no gross neurological deficit, and patient able to move all 4 extremities. Extremities: No edema. Skin: No rash or ecchymoses. Objective Labs 06/18/25 04:40 06/18/25 04:40 Labs: Laboratory Results - last 24 hr 06/16/25 06/16/25 06/16/25 10:46 12:25 14:11 WBC 2.8 L RBC 2.02 L Hgb 2.9 L* 2.9 L* Hct 11.7 L* 11.6 L* MCV 58 L MCH 14.4 L MCHC 24.8 L RDW Std Deviation 48.9 H Plt Count 90 L Neut % (Auto) 68 Lymph % (Auto) 17 [place] % (Auto) 10 Eos % (Auto) 4 Baso % (Auto) 0 Neut # (Auto) 1.9 Lymph # (Auto) 0.5 L [place] # (Auto) 0.3 Eos # (Auto) 0.1 Baso # (Auto) 0.0 Immature Gran # (Auto) 0.02 H Absolute Nucleated RBC 0.00 Immature Gran % 1 H Nucleated RBC % 0 Smear Path Review Sent to Pathologist Retic Count (auto) 1.5 Absolute Retic 29.6 Immature Retic Fraction 31.1 H Retic Hgb Content CHr 14.3 L PT 16.2 H INR 1.5 H VBG pH 7.54 VBG pCO2 30 L VBG pO2 57 VBG O2 Sat (Bran) 95 L VBG Base Excess 2 Sodium 141 Potassium 3.9 Chloride 107 Carbon Dioxide 27.1 Anion Gap 7 BUN 14 Creatinine 0.6 Estim Creat Clear Calc 63.5 eGFR > 60 BUN/Creatinine Ratio 23 H Glucose 109 H Calculated Osmolality 282 Lactic Acid 1.2 Calcium 8.5 Corrected Calcium 8.7 Phosphorus Magnesium Iron 8 L TIBC 354 Ferritin 6 L Total Bilirubin 0.3 AST 11 ALT < 7 L Alkaline Phosphatase 46 Ammonia 15 Troponin I < 0.020 B-Natriuretic Peptide 187 H Total Protein 5.8 Albumin 3.8 Globulin 2.0 L Albumin/Globulin Ratio 1.9 Triglycerides Cholesterol LDL Cholesterol, Calc HDL Cholesterol Cholesterol/HDL Ratio Carcinoembryonic Ag CA 15-3 Antigen CA 125 Antigen Vitamin B12 794 Folate 14.28 Ur Collection Type Catheter Urine Color Yellow Urine Clarity Clear Urine pH 5.5 Ur Specific Belt 1.021 Urine Protein Negative Urine Glucose (UA) Negative Urine Ketones Negative Urine Blood Negative Urine Nitrite Negative Urine Bilirubin Negative Urine Urobilinogen (Auto) Negative Ur Leukocyte Esterase Positive Urine RBC < 1 Urine WBC 2 Ur Squamous Epith Cells 1 Urine Bacteria None Ur Culture Indicated? Not Indicated Urine Opiates Screen Positive A Urine Fentanyl Screen Positive A Ur Barbiturates Screen Negative U Amphetamin/Meth Scrn Negative U Benzodiazepines Scrn Negative U Cocaine Metab Screen Negative U Marijuana (THC) Screen Negative Ethyl Alcohol < 10.0 Blood Type O Positive Antibody Screen NEGATIVE Direct Antiglob Test Negative Crossmatch See Detail Blood Bank Wristband ID Yes 06/16/25 06/17/25 22:06 04:54 WBC 5.1 D RBC 3.65 L Hgb 8.9 L D 8.7 L Hct 26.4 L D 26.4 L MCV 72 L MCH 23.8 L MCHC 33.0 RDW Std Deviation 69.8 H Plt Count 89 L Neut % (Auto) 80 Lymph % (Auto) 6 L [place] % (Auto) 9 Eos % (Auto) 2 Baso % (Auto) 1 Neut # (Auto) 4.1 Lymph # (Auto) 0.3 L [place] # (Auto) 0.5 Eos # (Auto) 0.1 Baso # (Auto) 0.0 Immature Gran # (Auto) 0.09 H Absolute Nucleated RBC 0.04 H Immature Gran % 2 H Nucleated RBC % 1 H Smear Path Review Retic Count (auto) Absolute Retic Immature Retic Fraction Retic Hgb Content CHr PT INR VBG pH VBG pCO2 VBG pO2 VBG O2 Sat (Bran) VBG Base Excess Sodium 142 Potassium 3.9 Chloride 107 Carbon Dioxide 24.3 Anion Gap 11 BUN 10 Creatinine 0.5 L Estim Creat Clear Calc 76.2 eGFR > 60 BUN/Creatinine Ratio 20 Glucose 85 Calculated Osmolality 281 Lactic Acid Calcium 8.2 L Corrected Calcium 8.6 Phosphorus 2.4 Magnesium 1.4 L Iron TIBC Ferritin Total Bilirubin 0.8 D AST 14 ALT < 7 L Alkaline Phosphatase 47 Ammonia Troponin I B-Natriuretic Peptide Total Protein 5.4 L Albumin 3.5 Globulin 1.9 L Albumin/Globulin Ratio 1.8 Triglycerides 98 Cholesterol 126 L LDL Cholesterol, Calc 68 HDL Cholesterol 38 L Cholesterol/HDL Ratio 3.3 L Carcinoembryonic Ag 3.1 CA 15-3 Antigen 10.9 CA 125 Antigen 5.0 Vitamin B12 Folate Ur Collection Type Urine Color Urine Clarity Urine pH Ur Specific Belt Urine Protein Urine Glucose (UA) Urine Ketones Urine Blood Urine Nitrite Urine Bilirubin Urine Urobilinogen (Auto) Ur Leukocyte Esterase Urine RBC Urine WBC Ur Squamous Epith Cells Urine Bacteria Ur Culture Indicated? Urine Opiates Screen Urine Fentanyl Screen Ur Barbiturates Screen U Amphetamin/Meth Scrn U Benzodiazepines Scrn U Cocaine Metab Screen U Marijuana (THC) Screen Ethyl Alcohol Blood Type Antibody Screen Direct Antiglob Test Crossmatch Blood Bank Wristband ID ABG Interpretation ABG results: 06/16/25 10:46 VBG pH 7.54 VBG pCO2 30 L VBG pO2 57 VBG Base Excess 2 Quality Measures Quality Measures none Advance care planning discussed with:: patient Assessment & Plan Assessment Current Active Medications: Generic Name Dose Route Start Last Admin Trade Name Freq PRN Reason Stop Dose Admin Acetaminophen 650 mg 06/16/25 12:42 Acetaminophen 325 Mg Tablet PO 07/16/25 12:41 Q6H PRN Shea 1-3 or Fever >100.3 Hydrocodone Bitart/Acetaminophen 1 tab 06/16/25 12:42 06/17/25 08:02 Hydrocodone/Apap 10/325 Tab PO 06/21/25 12:41 1 tab Q4H PRN Administration PAIN SCALE 4-10(Mod-Sev Albuterol/Ipratropium 3 ml 06/16/25 12:49 Albuterol/Ipratropium (Duoneb) Rt Raquel 3 Ml Nebu INH 07/16/25 12:59 Q6HRRT PRN Wheezing Fluoxetine HCl 20 mg 06/17/25 09:00 06/17/25 08:03 Fluoxetine Hcl 10 Mg Capsule PO 07/17/25 08:59 20 mg QDAY VANESSA Administration Sodium Chloride 2,000 mls @ 50 mls/hr 06/16/25 10:34 06/16/25 13:18 Ns IV 06/17/25 10:33 50 mls/hr .Q24H ONE Administration Melatonin 3 mg 06/16/25 21:00 06/16/25 22:00 Melatonin 3 Mg Tablet PO 07/16/25 20:59 3 mg HS VANESSA Administration Naloxone HCl 1 mg 06/17/25 07:50 Naloxone Inj 1 Mg/Ml Syringe 2 Ml IV 07/17/25 07:49 Q3M PRN OPIATE REVERSAL Ondansetron HCl 4 mg 06/16/25 12:42 Ondansetron Inj 2 Mg/Ml Inj 2 Ml IVP 07/16/25 12:41 Q6H PRN NAUSEA OR VOMITING Protocol Pantoprazole Sodium 40 mg 06/16/25 21:00 06/17/25 08:02 Pantoprazole Inj 40 Mg Vial IVP 07/16/25 20:59 40 mg Q12HR VANESSA Administration Polyethylene Glycol 17 gm 06/16/25 13:00 06/16/25 14:01 Polyethylene Glycol 17 Gm Packet PO 07/16/25 12:59 Not Given QDAY VANESSA Sennosides 1 tab 06/16/25 13:00 06/17/25 08:02 Senna/Docusate Sod 1 Tab Tablet PO 07/16/25 12:59 1 tab QDAY VANESSA Administration Protocol Plan Patient is an 79-year-old female with past medical history of ovarian cancer (diagnosed 2008), depression, anxiety, left lower extremity DVT, breast cancer, heel spurs, chronic pain (with pain pump) presenting on 06/16 for low hemoglobin. #Symptomatic Acute Microcytic Anemia #Iron deficiency anemia #Concern for GI Bleed #History of Pulmonary Embolism #Pancytopenia, improved. On admission, patient had acute anemia (Hgb 2.9, baseline 10 as of 06/2024). Low MCV indicated microcytic anemia and low iron likely 2/2 to iron deficiency anemia, concern for lower GI bleed as patient is elderly and has not had a colonoscopy in 10 years. On xarelto due to history of DVT, increases risk for ulcers. Also concern for malignancy given pancytopenia, patient has history of ovarian and breast cancer. Platelets were 90 (previous baseline was 230 as of 06/2024), INR of 1.5 (previous baseline was 1.1 as of 06/2024). Iron is also low (8); BNP is high (187). 06/17: overnight transfused 3 units of RBC, Hgb increased to 8.9. Total 6 units RBC since admission. Reticulocyte count low considering low hemoglobin. B12 and folate WNL. Plan: - s/p iron sucrose x1 -Suppository X 1 -Continue Protonix 40 mg BID -Hold Xarelto -Pending FOBT -Pending haptoglobin -NPO after midnight, Golytely today, plan for colonoscopy tonight -Will need endoscopy -Consult GI Dr. Harrison, appreciate recommendations -Consult Oncology Dr. Cosme, appreciate recommendations -SCDs for DVT prophylaxis #Constipation Per images, patient has constipation, likely secondary to opioid dependence given history of Fentanly pump and Norc 10. Given acute anemia, lactulose X 1 and Mirlax X 1 only. Plan: -s/p Lactulose X 1 -s/p Mirlax X1 -on Golytey prep for colonoscopy -Senna daily #Chronic Pain #History of Blepharospasm #Generalized Muscle weakness Patient has an extensive history of opioid use disorder for chronic pain, likely secondary to surgeries and history of malignancy. Plan: -Continue SPRING UPHOLSTERER pump, norco 10 as per home -Monitor for signs of respiratory depression -Narcan PRN -PT consulted #Dilated common hepatic duct Noted 20 mm common hepatic duct on CT A/P, no bile duct stones noted. Liver enzymes and bilirubin not elevated. S/p cholecystectomy. Plan: - Ordered liver US to rule out choledocholithiasis #History of Ovarian/Breast Cancer #Incidential finding, Pulmonary nodule 4 mm S/p hysterectomy and bilateral mastectomy. New 4 mm pulmonary nodule in left upper lobe noted on CT scan, concern for malignancy. CEA, CA 125, CA 15-3 all within normal limits. Plan: - Follow up pulmonary nodule outpatient, less concering given size,none the less follow outpatient with repeat CT - Consulted oncology as above, appreciate recommendations. #Hx COPD Patient has a past medical history of COPD per chart review from [facility], home medication includes Ipratroipum-Albuterol Plan -Continue home dose Albuterol/Ipratropium PRN #History of Major Depression Patient has a past medical history of major Depression per chart review from [facility]. Patient's home medication of Fluoxetine 20 mg PO Qday. No signs of SI or HI. Plan: -Continue Fluoxetine 20 mg PO Qday -Monitor for SI or HI. Health Maintenance Disposition: further management of anemia, pending colonoscopy and endoscopy DVT prophylaxis: SCDs GI prophylaxis: Senna Diet: NPO after midnight, resume low carb diet tomorrow CODE STATUS: DNR Patient plan of care was discussed with the resident, Dr. Miner, and attending physician, Dr. Goldman. Nancy Escalante, PGY-1 - The patient's plan was discussed with attending Dr. Jones Miner MD PGY2 Internal Medicine Attending Provider Attestation/Addendum I have examined the patient, reviewed labs and imaging findings, discussed the case with the resident(s), and reviewed entered orders. I agree with the plan of care as outlined in this note, with these additional summaries/recommendations: Patient is a 79-year-old female with a medical history of uterine cancer, urinary incontinence, COPD on home oxygen, chronic constipation, seasonal allergies, primary hypertension, deep vein thrombosis on Xarelto, and insomnia presents to [facility] emergency department on 06/16/2025 with chief complaint of abnormal lab work. Patient is a resident at [facility] and had a hematology panel done yesterday which revealed severe anemia. Patient seen at bedside. No acute overnight events. Patient seen drinking GoLytely. She is endorsing severe constipation despite drinking GoLytely. On admission patient diagnosed with symptomatic anemia, pancytopenia, iron deficiency anemia, and possibly acute blood loss anemia secondary to GI bleed. For patient's symptomatic anemia she is s/p 3 units PRBCs with improvement of hgb to 8.9. Gastroenterology following with plans for EGD. Patient also noted to have pancytopenia which is now resolving. Leukopenia resolved. Etiology likely multifactorial secondary to possible acute blood loss plus severe iron deficiency anemia with ferritin 6, and possibly anemia of chronic disease from return of malignancy. Patient has a history of uterine/ovarian and breast cancer. She reportedly has not followed up with an oncologist in many years and has lost 17 pounds in the last couple months. In house oncology consulted and tumor markers within normal limits. Patient will need to follow-up outpatient for age appropriate cancer screening. Continue to hold home Xarelto for history of deep vein thrombosis. SCDs okay for now. Risks and benefits of holding anticoagulation explained to patient. CT abdomen and pelvis showed large amount of stool throughout the colon although we will be cautious with laxatives in the setting of potential GI bleed. CT revealed enlarged common hepatic duct which is most likely secondary to previous cholecystectomy. Patient updated on the plan and agreement. All questions answered to satisfaction. Please see residents note for additional details of management. Dr. Jones MD
--- NOTE | 2025-06-17 11:00 | PC.SS ---
Patient is a 79 year old female presenting to the hospital from [facility] for Anemia. MELTER OPERATOR made contact with patient at bedside and explained role and reason for visit. Pt. was alert and oriented. Pt. confirmed demographic information and stated she has been living at [facility] for seven years. Pt. confirmed that next of kin is Jennifer Flores, daughter ph:[phone]. Pt. stated she uses wheel chair and is unable to walk. Pt. was unable to verify PCP but states it is a doctor at [facility]. Pt. stated that once medically clear she will be returning to [facility]. Next of Kin: Jennifer Flores, daughter [phone] d/c: return to [facility]
--- NOTE | 2025-06-17 15:43 | PC.SS ---
Rounding note: Pt. pending colonoscopy with Dr. Harrison.
[2025-06-17] MEDS: GLYCERIN, ADULT 1 EA SUPP 1 EACH PR (18:14)
[2025-06-17] MEDS: MELATONIN 3 MG TABLET PO (21:02)
--- NOTE | 2025-06-17 21:02 | ESPR_ITS ---
Documentation for date of: 06/17/25 Subjective Subjective Interval history: Patient evaluated Patient was scheduled for upper endoscopy and colonoscopy but she is not clear Additional GoLytely via the NGT at 400 cc an hour Procedures postponed to tomorrow Exam Vital Signs Temp Pulse Resp BP Pulse Ox O2 Del Method 97.5 F 63 18 128/67 96 Room Air 06/17/25 20:00 06/17/25 20:00 06/17/25 20:00 06/17/25 20:00 06/17/25 20:00 06/17/25 20:00 Objective Labs 06/17/25 04:54 06/17/25 04:54 Labs: Laboratory Results - last 24 hr 06/16/25 06/17/25 22:06 04:54 WBC 5.1 D RBC 3.65 L Hgb 8.9 L D 8.7 L Hct 26.4 L D 26.4 L MCV 72 L MCH 23.8 L MCHC 33.0 RDW Std Deviation 69.8 H Plt Count 89 L Neut % (Auto) 80 Lymph % (Auto) 6 L [place] % (Auto) 9 Eos % (Auto) 2 Baso % (Auto) 1 Neut # (Auto) 4.1 Lymph # (Auto) 0.3 L [place] # (Auto) 0.5 Eos # (Auto) 0.1 Baso # (Auto) 0.0 Immature Gran # (Auto) 0.09 H Absolute Nucleated RBC 0.04 H Immature Gran % 2 H Nucleated RBC % 1 H Sodium 142 Potassium 3.9 Chloride 107 Carbon Dioxide 24.3 Anion Gap 11 BUN 10 Creatinine 0.5 L Estim Creat Clear Calc 76.2 eGFR > 60 BUN/Creatinine Ratio 20 Glucose 85 Calculated Osmolality 281 Calcium 8.2 L Corrected Calcium 8.6 Phosphorus 2.4 Magnesium 1.4 L Total Bilirubin 0.8 D AST 14 ALT < 7 L Alkaline Phosphatase 47 Total Protein 5.4 L Albumin 3.5 Globulin 1.9 L Albumin/Globulin Ratio 1.8 Triglycerides 98 Cholesterol 126 L LDL Cholesterol, Calc 68 HDL Cholesterol 38 L Cholesterol/HDL Ratio 3.3 L Carcinoembryonic Ag 3.1 CA 15-3 Antigen 10.9 CA 125 Antigen 5.0 Impressions Impression: Pancytopenia Anemia Continue GoLytely prep EGD and colonoscopy a.m. after patient is clear ABG Interpretation ABG results: 06/16/25 10:46 VBG pH 7.54 VBG pCO2 30 L VBG pO2 57 VBG Base Excess 2 Assessment & Plan A&P Narrative 1. Gaby transitional patient admitted with significant anemia awaiting endoscopic procedures, Dr. Harrison. 2. History of ovarian cancer and breast cancer between 20 and 30 years ago treated with prior surgeries chemotherapy in [place]. BRCA genes negative according to daughter. 3. Chronic pain thought related to adhesions related to prior abdominal pelvic surgeries on intrathecal pain pump managed by Dr. Ibarra. 4. I ordered common tumor markers for breast ovary. CEA CA 125 CA 15-3 Thank you for allowing me to evaluate this patient. Time Spent With Patient Time: Total time spent is greater than 50% in coordination of care (as documented) at patient's floor/unit and/or counseling patient:
[2025-06-17] MEDS: Artificial Tears 225 DROP/15 ML BTL BOTH EYES (21:07)
--- NOTE | 2025-06-17 21:50 | PC.NURSE ---
Made Dr. Zavala aware of patient not being clear after drinking drinking majority of golytely. per Dr zavala start NG-tube administering at 400 cc/hr. patient to stay CLD until MN NPO.
[2025-06-18] VITALS (19 sets, daily range): BP systolic 128–170; BP diastolic 70–94; PULSE 65–91; RESP 12–96; TEMP 36.3–36.9; O2SAT 93–99; BMI 21.9
--- NOTE | 2025-06-18 00:56 | PC.NURSE ---
at approx 2340 Dr. zavala at bedside , s/p post few attempts to insert NG-tube he spoke with patient decision made to not follow through with NGT insertion patient will drink more of the golytely orally.
[2025-06-18] MEDS: ACETAMINOPHEN 325 MG TABLET 650 MG PO (05:13)
[2025-06-18 05:25] LABS: Basophils # (Auto) 0.0 Thou/mm3 (0.0-0.2); Basophils % (Auto) 1 % (0-2.5); Eosinophils # (Auto) 0.2 Thou/mm3 (0.0-0.5); Eosinophils % (Auto) 4 % (0-10); Hematocrit 26.6 % (36.0-46.0); Immature Granulocytes Auto 0.08 Thou/mm3 (0.00-0.00); Lymphocytes # (Auto) 0.4 Thou/mm3 (1.0-4.8); Lymphocytes % (Auto) 10 % (10-50); Mean Corpuscular HGB Conc 32.7 g/dl (31.0-37.0); Mean Corpuscular Hemoglobin 24.4 pg (25.0-35.0); Mean Corpuscular Volume 75 fL (80-100); Monocytes # (Auto) 0.6 Thou/mm3 (0.0-0.8); Monocytes % (Auto) 13 % (0-12); Neutrophils # (Auto) 3.1 Thou/mm3 (1.8-7.7); Neutrophils % (Auto) 71 % (37-80); Nucleated Red Blood Cell # 0.05 Thou/mm3 (0.00-0.00); Nucleated Red Blood Cell % 1 /100 WBC (0); Platelet Count 145 Thou/mm3 (140-440); RDW Standard Deviation 75.0 fL (36.4-46.3); Red Blood Count 3.57 Miln/mm3 (4.00-5.20); White Blood Count 4.4 Thou/mm3 (3.6-11.0)
[2025-06-18 05:42] LABS: Hemoglobin 8.7 g/dL (12.0-16.0)
[2025-06-18 06:05] LABS: Alanine Aminotransferase < 7 U/L (10-49); Albumin, Serum 3.4 gm/dL (3.4-4.8); Albumin/Globulin Ratio 1.8 (1.2-2.2); Alkaline Phosphatase 51 U/L (46-116); Anion Gap 12 (7-16); Aspartate Amino Transferase 13 U/L (0-34); BUN/Creatinine Ratio 15 Ratio (12-20); Bilirubin,Total 0.8 mg/dL (0.3-1.2); Blood Urea Nitrogen 6 mg/dL (9-23); Calcium 8.0 mg/dL (8.3-10.6); Calcium (Corrected) 8.5 mg/dL (8.5-10.1); Carbon Dioxide 25.1 mMol/L (20.0-31.0); Chloride 105 mMol/L (98-107); Creatinine (Component) 0.4 mg/dL (0.6-1.3); Estimated Creatinine Clearance 95.3 mL/min (>60); Globulin 1.9 gm/dL (2.3-3.5); Glucose 79 mg/dL (74-106); Magnesium 1.5 mg/dL (1.6-2.6); Osmolality,Calculated 279 (275-295); Phosphorous 1.9 mg/dL (2.4-5.1); Potassium 3.5 mMol/L (3.4-5.1); Sodium 142 mMol/L (136-145); Total Protein 5.3 gm/dL (5.7-8.2); eGFR > 60 See Note
[2025-06-18] MEDS: NAPH,KPH MBDB 1 PACKET (1.5 GM) PO (08:19)
[2025-06-18] MEDS: SENNA/DOCUSATE SOD 1 TAB TABLET PO (08:20)
[2025-06-18] MEDS: Magnesium Sulfate 2 GM Ivpb 2 GM/50 ML BAG IV (08:21)
--- NOTE | 2025-06-18 08:43 | PC.SS ---
SS update: SERVICE ORDER EXPEDITER spoke to Jacqui at [facility], Jacqui stated no authorization required but requested updated clinical notes. SERVICE ORDER EXPEDITER submitted updated clinical notes via [employer].
[2025-06-18] MEDS: GLYCERIN, ADULT 1 EA SUPP 1 EACH PR (10:24)
[2025-06-18] MEDS: MUPIROCIN OINT 2% 15 GM TUBE TOP ×2 (10:24→21:29)
[2025-06-18] MEDS: NA SU/NAHCO3/KC/PEG (Golytely) 4,000 ML BTL 4000 ML PO (13:17)
--- NOTE | 2025-06-18 13:24 | PD.RESPRO ---
Documentation for date of: 06/18/25 No overnight events. Patient examined at bedside. Patient's hemoglobin and hematocrit improved since admission. Continue to hold Xarelton, may benefit from switching to Eliquis, Pending EGD and Colonoscopy. Continue to take Golytely. Subjective Subjective Interval history: No acute events overnight. Patient seen and examined at bedside this AM. Had 9 bowel movements overnight, still need time to clear, anticipate colonoscopy tomorrow. Continues to endorse chronic abdominal pain, denies chest pain or shortness of breath. Labs and vitals were reviewed. Hemoglobin stable at 8.7 s/p RBC transfusions on 06/16 & 06/17. Tumor markers within normal limits. Preliminary blood culture was positive for GPC in one bottle, likely contamination as patient is afebrile and WBC not elevated. Will repeat blood cultures. Nares swab positive for MRSA, started on mupirocin BID. Liver US 06/17 showed enlarged CBD but no gallstones. Review of systems otherwise negative except what is mentioned above. Exam Vital Signs Temp Pulse Resp BP Pulse Ox O2 Del Method 98.5 F 73 19 155/90 H 93 L Room Air 06/18/25 12:00 06/18/25 12:00 06/18/25 12:00 06/18/25 12:00 06/18/25 12:00 06/18/25 12:00 Narrative Exam Physical Exam General: Awake and in no acute distress. Conversational. Elderly woman laying in bed. Able to open eyes today. HEENT: Normocephalic, atraumatic, mucous membranes moist. Heart: Regular rate and rhythm, normal S1 and S2, no murmurs appreciated. Lungs: Clear to auscultation with no wheezing or crackles. Abdomen: Soft, nondistended, positive bowel sounds. Diffuse abdominal tenderness, chronic. AIR BAG CURER pump subcutaneous in right lower quadrant. No guarding or rebound tenderness. Neurologic: Alert and oriented x3, no gross neurological deficit, and patient able to move all 4 extremities. Extremities: No edema. Skin: No rash or ecchymoses. Objective Labs 06/19/25 05:26 06/19/25 05:26 Labs: Laboratory Results - last 24 hr 06/18/25 04:40 WBC 4.4 RBC 3.57 L Hgb 8.7 L Hct 26.6 L MCV 75 L MCH 24.4 L MCHC 32.7 RDW Std Deviation 75.0 H Plt Count 145 D Neut % (Auto) 71 Lymph % (Auto) 10 [place] % (Auto) 13 H Eos % (Auto) 4 Baso % (Auto) 1 Neut # (Auto) 3.1 Lymph # (Auto) 0.4 L [place] # (Auto) 0.6 Eos # (Auto) 0.2 Baso # (Auto) 0.0 Immature Gran # (Auto) 0.08 H Absolute Nucleated RBC 0.05 H Immature Gran % 2 H Nucleated RBC % 1 H Sodium 142 Potassium 3.5 Chloride 105 Carbon Dioxide 25.1 Anion Gap 12 BUN 6 L Creatinine 0.4 L Estim Creat Clear Calc 95.3 eGFR > 60 BUN/Creatinine Ratio 15 Glucose 79 Calculated Osmolality 279 Calcium 8.0 L Corrected Calcium 8.5 Phosphorus 1.9 L Magnesium 1.5 L Total Bilirubin 0.8 AST 13 ALT < 7 L Alkaline Phosphatase 51 Total Protein 5.3 L Albumin 3.4 Globulin 1.9 L Albumin/Globulin Ratio 1.8 ABG Interpretation ABG results: 06/16/25 10:46 VBG pH 7.54 VBG pCO2 30 L VBG pO2 57 VBG Base Excess 2 Quality Measures Quality Measures none Advance care planning discussed with:: patient Assessment & Plan Assessment Current Active Medications: Generic Name Dose Route Start Last Admin Trade Name Freq PRN Reason Stop Dose Admin Acetaminophen 650 mg 06/16/25 12:42 06/18/25 05:13 Acetaminophen 325 Mg Tablet PO 07/16/25 12:41 650 mg Q6H PRN Administration Shea 1-3 or Fever >100.3 Hydrocodone Bitart/Acetaminophen 1 tab 06/16/25 12:42 06/18/25 11:39 Hydrocodone/Apap 10/325 Tab PO 06/21/25 12:41 1 tab Q4H PRN Administration PAIN SCALE 4-10(Mod-Sev Albuterol/Ipratropium 3 ml 06/16/25 12:49 Albuterol/Ipratropium (Duoneb) Rt Raquel 3 Ml Nebu INH 07/16/25 12:59 Q6HRRT PRN Wheezing Artificial Tears 0 drop 06/17/25 17:14 06/17/25 21:07 Artificial Tears 225 Drop/15 Ml Btl BOTH EYES 07/17/25 17:13 2 drops PRN PRN Administration TO KEEP EYES MOIST Fluoxetine HCl 20 mg 06/17/25 09:00 06/18/25 08:20 Fluoxetine Hcl 10 Mg Capsule PO 07/17/25 08:59 20 mg QDAY VANESSA Administration Glycerin 1 each 06/17/25 17:15 06/18/25 10:24 Glycerin, Adult 1 Ea Supp TX 07/17/25 17:14 1 each QDAY VANESSA Administration Lisinopril 5 mg 06/18/25 11:00 06/18/25 11:38 Lisinopril 2.5 Mg Tablet PO 07/18/25 10:59 5 mg QDAY VANESSA Administration Melatonin 3 mg 06/16/25 21:00 06/17/25 21:02 Melatonin 3 Mg Tablet PO 07/16/25 20:59 3 mg HS VANESSA Administration Mupirocin 0 gm 06/18/25 09:15 06/18/25 10:24 Mupirocin Oint 2% 15 Gm Tube TOP 06/25/25 09:14 1 applicatio BID VANESSA Administration Naloxone HCl 1 mg 06/17/25 07:50 Naloxone Inj 1 Mg/Ml Syringe 2 Ml IV 07/17/25 07:49 Q3M PRN OPIATE REVERSAL Ondansetron HCl 4 mg 06/16/25 12:42 Ondansetron Inj 2 Mg/Ml Inj 2 Ml IVP 07/16/25 12:41 Q6H PRN NAUSEA OR VOMITING Protocol Pantoprazole Sodium 40 mg 06/16/25 21:00 06/18/25 08:21 Pantoprazole Inj 40 Mg Vial IVP 07/16/25 20:59 40 mg Q12HR VANESSA Administration Polyethylene Glycol 17 gm 06/16/25 13:00 06/16/25 14:01 Polyethylene Glycol 17 Gm Packet PO 07/16/25 12:59 Not Given QDAY VANESSA Sennosides 1 tab 06/16/25 13:00 06/18/25 08:20 Senna/Docusate Sod 1 Tab Tablet PO 07/16/25 12:59 1 tab QDAY VANESSA Administration Protocol Plan Patient is an 79-year-old female with past medical history of ovarian cancer s/p hysterectomy (diagnosed 2008), depression, anxiety, left lower extremity DVT on Xarelto, breast cancer s/p bilateral mastectomy, heel spurs, chronic pain (with pain pump) who presented on 06/16 for symptomatic acute anemia. #Symptomatic Acute Microcytic Anemia - stable #Iron deficiency anemia #Concern for GI Bleed #History of Pulmonary Embolism #Pancytopenia, improved. #S/p RBC transfusion On admission, patient had acute anemia (Hgb 2.9, baseline 10 as of 06/2024). Low MCV indicated microcytic anemia and low iron likely 2/2 to iron deficiency anemia, concern for lower GI bleed as patient is elderly and has not had a colonoscopy in 10 years. Also concern for anemia of chronic disease based on extensive cancer history and lack of medical follow up, pancytopenia may also be concerning for malignancy. Patient is on xarelto due to history of DVT, increasing her risk for ulcers. Platelets were 90 (previous baseline was 230 as of 06/2024), INR of 1.5 (previous baseline was 1.1 as of 06/2024). Iron is also low (8); BNP is high (187). 06/17: overnight transfused 3 units of RBC, Hgb increased to 8.9. Total 6 units RBC since admission. Reticulocyte count low considering low hemoglobin, possible additional bone marrow suppression. B12 and folate WNL. Plan: -Continue Protonix 40 mg BID -Hold Xarelto -Pending FOBT -Pending haptoglobin -Continuing GoLytely prep, anticipating colonoscopy tomorrow -Pending endoscopy -Consult GI Dr. Harrison, appreciate recommendations -Consult Oncology Dr. Cosme, appreciate recommendations -SCDs for DVT prophylaxis #Constipation Per images, patient has significant constipation, likely secondary to opioid dependence given history of Fentanly pump and Norc 10. Given acute anemia, lactulose X 1 and Mirlax X 1 only. Plan: -Continue Golytey prep as above -Senna daily #Chronic Pain #History of Blepharospasm #Generalized Muscle weakness Patient has an extensive history of opioid use disorder for chronic pain, likely secondary to surgeries and history of malignancy. Plan: -Continue AIR BAG CURER pump, norco 10 as per home -Monitor for signs of respiratory depression -Narcan PRN -Consider PT consult prior to discharge #Dilated common hepatic duct Noted 20 mm common hepatic duct on CT A/P, no bile duct stones noted. Liver enzymes and bilirubin not elevated. S/p cholecystectomy. Liver US negative for choledocholithiasis. #History of Ovarian/Breast Cancer #Incidential finding, Pulmonary nodule 4 mm S/p hysterectomy and bilateral mastectomy. New 4 mm pulmonary nodule in left upper lobe noted on CT scan, concern for malignancy. Also reports 17 pound weight loss over the past couple of months. CEA, CA 125, CA 15-3 all within normal limits. Plan: - Follow up pulmonary nodule outpatient, less concering given size,none the less follow outpatient with repeat CT - Consulted oncology Dr. Cosme as above, appreciate recommendations. #GPC bacteremia? Prelim blood cultures 06/16 shows GPC in 1/2 bottles, likely contaminant as WBC has not been rising (within normal limits) and patient is afebrile, not tachycardic. Second bottle showed no growth after 48 hours. - Ordered repeat blood cultures to be sure #Nares MRSA Nasal swab positive for MRSA. - Start on topical muprocin BID for 5 days #Hx COPD Patient has a past medical history of COPD per chart review from [facility], home medication includes Ipratroipum-Albuterol Plan -Continue home dose Albuterol/Ipratropium PRN #History of Major Depression Patient has a past medical history of major Depression per chart review from [facility]. Takes Fluoxetine 20 mg daily at home. No signs of SI or HI. Plan: -Continue home dose Fluoxetine -Monitor for SI or HI. Health Maintenance Disposition: further management of anemia, pending colonoscopy and endoscopy DVT prophylaxis: SCDs GI prophylaxis: Senna Diet: NPO after midnight, resume low carb diet tomorrow CODE STATUS: DNR Patient plan of care was discussed with the resident, Dr. Miner, and attending physician, Dr. Goldmna. Nancy Esclaante, PGY-1 Attending Provider Attestation/Addendum I have examined the patient, reviewed labs and imaging findings, discussed the case with the resident(s), and reviewed entered orders. I agree with the plan of care as outlined in this note, with these additional summaries/recommendations: Patient is a 79-year-old female with a medical history of uterine cancer, urinary incontinence, COPD on home oxygen, chronic constipation, seasonal allergies, primary hypertension, deep vein thrombosis on Xarelto, and insomnia presents to [facility] emergency department on 06/16/2025 with chief complaint of abnormal lab work. Patient is a resident at [facility] and had a hematology panel done yesterday which revealed severe anemia. Patient seen at bedside. No acute overnight events. Colonoscopy was canceled last night as she was unable to tolerate a full jug of GoLytely. Colonoscopy rescheduled for today. For patient's symptomatic anemia she is s/p 3 units PRBCs with improvement of hgb to 8.9. Hemoglobin 8.7 today. Patient also noted to have pancytopenia which has now resolved. Leukopenia resolved. Etiology likely multifactorial secondary to possible acute blood loss plus severe iron deficiency anemia with ferritin 6, and possibly anemia of chronic disease. Patient has a history of uterine/ovarian and breast cancer. She reportedly has not followed up with an oncologist in many years and has lost 17 pounds in the last couple months. In house oncology consulted and tumor markers within normal limits. Patient will need to follow-up outpatient for age appropriate cancer screening. Continue to hold home Xarelto for history of deep vein thrombosis in setting of possible GI bleed. SCDs okay for now. Risks and benefits of holding anticoagulation explained to patient. CT abdomen and pelvis showed large amount of stool throughout the colon although we will be cautious with laxatives in the setting of potential GI bleed. CT revealed enlarged common hepatic duct which is most likely secondary to previous cholecystectomy. Patient updated on the plan and agreement. All questions answered to satisfaction. Please see residents note for additional details of management. Dr. Jones MD
--- NOTE | 2025-06-18 14:27 | PC.SS ---
Rounding note: Pt. pending colonoscopy clearance.
[2025-06-18] MEDS: VANCOMYCIN/WATER 1250 MG IVPB 250 ML 120 MG IV (14:56)
--- NOTE | 2025-06-18 19:22 | SUR.PHASEI ---
192: received pt from OR via cipriano. received report from CLARENCE Magallon. alert and oriented. no s/s of resp. distress or discomfort. denies any pain or discomfort.
--- NOTE | 2025-06-18 19:50 | SUR.PHASEI ---
Addendum entered by Mercedes Gilliam RN 06/18/25 20:02: updated report given to CLARENCE Ely not CLARENCE Kemp. Original Note: 1950: pt transfer back to room 373. pt alert and oriented. no s/s of resp. distress or discomfort. no s/s of pain or discomfort. updated report given to CLARENCE Kemp.
[2025-06-18] MEDS: ONDANSETRON INJ 2 MG/ML INJ 2 ML 4 MG IVP (21:57)
[2025-06-19] VITALS (10 sets, daily range): BP systolic 126–162; BP diastolic 63–84; PULSE 67–94; RESP 14–20; TEMP 36.2–36.9; O2SAT 92–98
[2025-06-19 06:22] LABS: Basophils # (Auto) 0.1 Thou/mm3 (0.0-0.2); Basophils % (Auto) 1 % (0-2.5); Eosinophils # (Auto) 0.2 Thou/mm3 (0.0-0.5); Eosinophils % (Auto) 3 % (0-10); Hematocrit 30.6 % (36.0-46.0); Hemoglobin 9.5 g/dL (12.0-16.0); Immature Granulocytes Auto 0.06 Thou/mm3 (0.00-0.00); Lymphocytes # (Auto) 0.4 Thou/mm3 (1.0-4.8); Lymphocytes % (Auto) 6 % (10-50); Mean Corpuscular HGB Conc 31.0 g/dl (31.0-37.0); Mean Corpuscular Hemoglobin 23.5 pg (25.0-35.0); Mean Corpuscular Volume 76 fL (80-100); Monocytes # (Auto) 0.6 Thou/mm3 (0.0-0.8); Monocytes % (Auto) 11 % (0-12); Neutrophils # (Auto) 4.7 Thou/mm3 (1.8-7.7); Neutrophils % (Auto) 79 % (37-80); Nucleated Red Blood Cell # 0.02 Thou/mm3 (0.00-0.00); Nucleated Red Blood Cell % 0 /100 WBC (0); Platelet Count 240 Thou/mm3 (140-440); RDW Standard Deviation 79.5 fL (36.4-46.3); Red Blood Count 4.04 Miln/mm3 (4.00-5.20); White Blood Count 6.0 Thou/mm3 (3.6-11.0)
[2025-06-19] MEDS: ONDANSETRON INJ 2 MG/ML INJ 2 ML 4 MG IVP ×2 (06:42→14:24)
[2025-06-19 07:07] LABS: Alanine Aminotransferase < 7 U/L (10-49); Albumin, Serum 3.8 gm/dL (3.4-4.8); Albumin/Globulin Ratio 1.7 (1.2-2.2); Alkaline Phosphatase 57 U/L (46-116); Anion Gap 16 (7-16); Aspartate Amino Transferase 14 U/L (0-34); BUN/Creatinine Ratio 10 Ratio (12-20); Bilirubin,Total 0.8 mg/dL (0.3-1.2); Blood Urea Nitrogen < 5 mg/dL (9-23); Calcium 8.4 mg/dL (8.3-10.6); Calcium (Corrected) 8.6 mg/dL (8.5-10.1); Carbon Dioxide 27.2 mMol/L (20.0-31.0); Chloride 99 mMol/L (98-107); Creatinine (Component) 0.5 mg/dL (0.6-1.3); Estimated Creatinine Clearance 76.2 mL/min (>60); Globulin 2.2 gm/dL (2.3-3.5); Glucose 79 mg/dL (74-106); Magnesium 1.6 mg/dL (1.6-2.6); Osmolality,Calculated 279 (275-295); Phosphorous 2.3 mg/dL (2.4-5.1); Potassium 3.2 mMol/L (3.4-5.1); Sodium 142 mMol/L (136-145); Total Protein 6.0 gm/dL (5.7-8.2); eGFR > 60 See Note
[2025-06-19] MEDS: NAPH,KPH MBDB 1 PACKET (1.5 GM) PO (08:06)
[2025-06-19] MEDS: POTASSIUM CHLORIDE 10% 20 MEQ/15 ML UDC PO (08:06)
[2025-06-19] MEDS: MUPIROCIN OINT 2% 15 GM TUBE TOP ×2 (08:14→20:21)
[2025-06-19] MEDS: VANCOMYCIN/WATER 1GM IVPB 200 ML IV ×2 (10:25→21:33)
--- NOTE | 2025-06-19 13:13 | ESPR_ITS ---
Documentation for date of: 06/19/25 --------- NO overnight events. Patient now s/p EGD with normal esophagus and no acitve bleeding noted. Patient's hgb and hct have remained stable since 3 units of pRBCs transfused. Patient is now refusing colonoscopy and Golytle. Update Dr. Harrison, will d/c colonscopy. Please have patient follow up with PCP for referral for colonscopy if they so wish to re-evaluate acute blood loss anemia. Consiser changing Xarelto to Eliquis. Iron panel low Iron, low Ferritin, and normal TIBC. Discharge with Iron tablets. B12 and Folate within normal limits. Subjective Subjective Interval history: No acute events overnight. Patient seen and examined at bedside this AM. Complaining of abdominal discomfort (from GoLytely prep) and worsening nausea with vomiting, will increase frequency of zofran to q4hr. QTc 438 on admission. Does not want to continue with Golytely prep, however patient is not clear yet per nurse. Notified GI Dr. Harrison, will speak with patient. Patient continues to refuse, will defer colonoscopy. Labs and vitals were reviewed. Hemoglobin has actually improved to 9.6 today. Anticipate discharge back to [facility] tomorrow. Review of systems otherwise negative except what is mentioned above. Exam Vital Signs Temp Pulse Resp BP Pulse Ox O2 Del Method O2 Flow Rate 98.2 F 68 14 153/82 H 95 Room Air 3 06/19/25 12:00 06/19/25 12:51 06/19/25 12:51 06/19/25 12:00 06/19/25 12:51 06/19/25 12:00 06/18/25 19:15 Narrative Exam Physical Exam General: Awake, in acute distress due to severe nausea. Conversational. Elderly woman laying in bed. HEENT: Normocephalic, atraumatic, mucous membranes moist. Heart: Regular rate and rhythm, normal S1 and S2, no murmurs appreciated. Lungs: Clear to auscultation with no wheezing or crackles. Abdomen: Soft, nondistended, positive bowel sounds. Diffuse abdominal tenderness, chronic. BIRD CAGE ASSEMBLER pump subcutaneous in right lower quadrant. No guarding or rebound tenderness. Neurologic: Alert and oriented x3, no gross neurological deficit, and patient able to move all 4 extremities. Extremities: No edema. Skin: No rash or ecchymoses. Objective Labs 06/20/25 04:42 06/20/25 04:42 Labs: Laboratory Results - last 24 hr 06/19/25 05:26 WBC 6.0 RBC 4.04 Hgb 9.5 L Hct 30.6 L MCV 76 L MCH 23.5 L MCHC 31.0 RDW Std Deviation 79.5 H Plt Count 240 D Neut % (Auto) 79 Lymph % (Auto) 6 L [place] % (Auto) 11 Eos % (Auto) 3 Baso % (Auto) 1 Neut # (Auto) 4.7 Lymph # (Auto) 0.4 L [place] # (Auto) 0.6 Eos # (Auto) 0.2 Baso # (Auto) 0.1 Immature Gran # (Auto) 0.06 H Absolute Nucleated RBC 0.02 H Immature Gran % 1 H Nucleated RBC % 0 Sodium 142 Potassium 3.2 L Chloride 99 Carbon Dioxide 27.2 Anion Gap 16 BUN < 5 L Creatinine 0.5 L Estim Creat Clear Calc 76.2 eGFR > 60 BUN/Creatinine Ratio 10 L Glucose 79 Calculated Osmolality 279 Calcium 8.4 Corrected Calcium 8.6 Phosphorus 2.3 L Magnesium 1.6 Total Bilirubin 0.8 AST 14 ALT < 7 L Alkaline Phosphatase 57 Total Protein 6.0 Albumin 3.8 Globulin 2.2 L Albumin/Globulin Ratio 1.7 ABG Interpretation ABG results: 06/16/25 10:46 VBG pH 7.54 VBG pCO2 30 L VBG pO2 57 VBG Base Excess 2 Quality Measures Quality Measures none Advance care planning discussed with:: patient Assessment & Plan Assessment Current Active Medications: Generic Name Dose Route Start Last Admin Trade Name David PRN Reason Stop Dose Admin Acetaminophen 650 mg 06/16/25 12:42 06/18/25 05:13 Acetaminophen 325 Mg Tablet PO 07/16/25 12:41 650 mg Q6H PRN Administration Shea 1-3 or Fever >100.3 Hydrocodone Bitart/Acetaminophen 1 tab 06/19/25 09:18 06/19/25 11:03 Hydrocodone/Apap 10/325 Tab PO 06/21/25 12:41 1 tab Q4H PRN Administration PAIN SCALE 4-10(Mod-Sev Albuterol/Ipratropium 3 ml 06/16/25 12:49 Albuterol/Ipratropium (Duoneb) Rt Raquel 3 Ml Nebu INH 07/16/25 12:59 Q6HRRT PRN Wheezing Artificial Tears 0 drop 06/17/25 17:14 06/17/25 21:07 Artificial Tears 225 Drop/15 Ml Btl BOTH EYES 07/17/25 17:13 2 drops PRN PRN Administration TO KEEP EYES MOIST Fluoxetine HCl 20 mg 06/17/25 09:00 06/19/25 08:06 Fluoxetine Hcl 10 Mg Capsule PO 07/17/25 08:59 20 mg QDAY VANESSA Administration Glycerin 1 each 06/17/25 17:15 06/19/25 08:14 Glycerin, Adult 1 Ea Supp TX 07/17/25 17:14 Not Given QDAY VANESSA Vancomycin HCl 200 mls @ 120 mls/hr 06/19/25 10:00 06/19/25 10:25 Vancomycin/Water 1gm Ivpb IV 06/26/25 09:59 120 mls/hr BID@1000,2200 VANESSA Administration Lisinopril 10 mg 06/20/25 09:00 Lisinopril 2.5 Mg Tablet PO 07/20/25 08:59 QDAY VANESSA Melatonin 3 mg 06/16/25 21:00 06/18/25 21:39 Melatonin 3 Mg Tablet PO 07/16/25 20:59 Not Given HS VANESSA Mupirocin 0 gm 06/18/25 09:15 06/19/25 08:14 Mupirocin Oint 2% 15 Gm Tube TOP 06/25/25 09:14 1 applicatio BID VANESSA Administration Naloxone HCl 1 mg 06/17/25 07:50 Naloxone Inj 1 Mg/Ml Syringe 2 Ml IV 07/17/25 07:49 Q3M PRN OPIATE REVERSAL Ondansetron HCl 4 mg 06/16/25 12:42 06/19/25 06:42 Ondansetron Inj 2 Mg/Ml Inj 2 Ml IVP 07/16/25 12:41 4 mg Q6H PRN Administration NAUSEA OR VOMITING Protocol Pantoprazole Sodium 40 mg 06/16/25 21:00 06/19/25 08:14 Pantoprazole Inj 40 Mg Vial IVP 07/16/25 20:59 40 mg Q12HR VANESSA Administration Pharmacy Consult 1 each 06/18/25 14:30 Vancomycin Pharmacy To Dose 1 Each Each IV 07/18/25 14:29 QDAY PRN CONSULT Polyethylene Glycol 17 gm 06/16/25 13:00 06/16/25 14:01 Polyethylene Glycol 17 Gm Packet PO 07/16/25 12:59 Not Given QDAY [facility] Sennosides 1 tab 06/16/25 13:00 06/19/25 08:14 Senna/Docusate Sod 1 Tab Tablet PO 07/16/25 12:59 Not Given QDAY [facility] Protocol Plan Patient is an 79-year-old female with past medical history of ovarian cancer s/p hysterectomy (diagnosed 2008), depression, anxiety, left lower extremity DVT on Xarelto, breast cancer s/p bilateral mastectomy, heel spurs, chronic pain (with pain pump) who presented on 06/16 for symptomatic acute anemia #Symptomatic Acute Microcytic Anemia - stable #Iron deficiency anemia #Concern for lower GI Bleed #History of Pulmonary Embolism #Pancytopenia, improved. #S/p RBC transfusion On admission, patient had acute anemia (Hgb 2.9, baseline 10 as of 06/2024). Low MCV indicated microcytic anemia and low iron likely 2/2 to iron deficiency anemia, concern for lower GI bleed as patient is elderly and has not had a colonoscopy in 10 years. Also concern for anemia of chronic disease based on extensive cancer history and lack of medical follow up, pancytopenia may also be concerning for malignancy. Patient is on xarelto due to history of DVT, increasing her risk for ulcers. Platelets were 90 (previous baseline was 230 as of 06/2024), INR of 1.5 (previous baseline was 1.1 as of 06/2024). Iron is also low (8); BNP is high (187). 06/17: overnight transfused 3 units of RBC, Hgb increased to 8.9. Total 6 units RBC since admission. Reticulocyte count low considering low hemoglobin, possible additional bone marrow suppression. B12 and folate WNL. 06/19: S/p endoscopy - unremarkable, evidence of Charlotte-en-Y gastrojejunostomy with gastrojejunostomy anastomosis. Having nausea and vomiting with GoLytely, had 22 bowel movements overnight but still not clear. Spoke with Dr. Harrison, will defer colonoscopy outpatient at a later time. Plan: -Continue Protonix 40 mg BID -Increase Zofran to q4hr -Resume diet -Hold Xarelto -Pending FOBT -Pending haptoglobin -Consult GI Dr. Harrison, appreciate recommendations -Consult Oncology Dr. Cosme, appreciate recommendations -Consider colonoscopy outpatient if patient becomes anemic again #Constipation Per images, patient has significant constipation, likely secondary to opioid dependence given history of Fentanly pump and Norc 10. Given acute anemia, lactulose X 1 and Mirlax X 1 only. Plan: -Discontinue GoLytely as patient does not want colonoscopy -Senna daily #Chronic Pain #History of Blepharospasm #Generalized Muscle weakness Patient has an extensive history of opioid use disorder for chronic pain, likely secondary to surgeries and history of malignancy. Plan: -Continue BIRD CAGE ASSEMBLER pump, norco 10 as per home -Monitor for signs of respiratory depression -Narcan PRN -Consider PT consult prior to discharge #Dilated common hepatic duct Noted 20 mm common hepatic duct on CT A/P, no bile duct stones noted. Liver enzymes and bilirubin not elevated. S/p cholecystectomy. Liver US negative for choledocholithiasis. #History of Ovarian/Breast Cancer #Incidential finding, Pulmonary nodule 4 mm S/p hysterectomy and bilateral mastectomy. New 4 mm pulmonary nodule in left upper lobe noted on CT scan, concern for malignancy. Also reports 17 pound weight loss over the past couple of months. CEA, CA 125, CA 15-3 all within normal limits. Plan: - Follow up pulmonary nodule outpatient, less concering given size,none the less follow outpatient with repeat CT - Consulted oncology Dr. Cosme as above, appreciate recommendations. #GPC bacteremia? Prelim blood cultures 06/16 shows GPC in 1/2 bottles, likely contaminant as WBC has not been rising (within normal limits) and patient is afebrile, not tachycardic. Second bottle showed no growth after 48 hours. - Pending repeat blood cultures #Nares MRSA Nasal swab positive for MRSA. - Start on topical muprocin BID for 5 days #Hx COPD Patient has a past medical history of COPD per chart review from SNF, home medication includes Ipratroipum-Albuterol Plan -Continue home dose Albuterol/Ipratropium PRN #History of Major Depression Patient has a past medical history of major Depression per chart review from [facility]. Takes Fluoxetine 20 mg daily at home. No signs of SI or HI. Plan: -Continue home dose Fluoxetine -Monitor for SI or HI. Health Maintenance Disposition: further management of anemia, pending colonoscopy and endoscopy DVT prophylaxis: SCDs GI prophylaxis: Senna Diet: NPO after midnight, resume low carb diet tomorrow CODE STATUS: DNR Patient plan of care was discussed with the resident, Dr. Miner, and attending physician, Dr. Goldman. Nancy Escalante, PGY-1 - The patient's plan was discussed with attending Dr. Jones Miner MD PGY2 Internal Medicine Attending Provider Attestation/Addendum I have examined the patient, reviewed labs and imaging findings, discussed the case with the resident(s), and reviewed entered orders. I agree with the plan of care as outlined in this note, with these additional summaries/recommendations: Patient is a 79-year-old female with a medical history of uterine cancer, urinary incontinence, COPD on home oxygen, chronic constipation, seasonal allergies, primary hypertension, deep vein thrombosis on Xarelto, and insomnia presents to [facility] emergency department on 06/16/2025 with chief complaint of abnormal lab work. Patient is a resident at [facility] and had a hematology panel done yesterday which revealed severe anemia. Patient seen at bedside. No acute overnight events. Patient underwent EGD yesterday which revealed normal esophagus and Charlotte-en-Y gastrojejunostomy. No source of bleeding was identified. Patient has been receiving GoLytely but has not yet been cleared. Patient noted to be frustrated in risks and benefits of completing colonoscopy were explained at length. At this time patient has decided not to pursue colonoscopy and discontinue GoLytely. We will touch base with gastroenterology. Hemoglobin did slightly uptrend today. We will repeat hemoglobin tomorrow and if stable patient can follow-up outpatient with gastroenterology as desired. Patient has a history of uterine/ovarian and breast cancer. She reportedly has not followed up with an oncologist in many years and has lost 17 pounds in the last couple months. In house oncology consulted and tumor markers within normal limits. Patient will need to follow-up outpatient for age appropriate cancer screening. Continue to hold home Xarelto for history of deep vein thrombosis in setting of possible GI bleed. SCDs okay for now. Risks and benefits of holding anticoagulation explained to patient. CT revealed enlarged common hepatic duct which is most likely secondary to previous cholecystectomy. Patient updated on the plan and agreement. All questions answered to satisfaction. Please see residents note for additional details of management. Dr. Jones MD
[2025-06-19] MEDS: DiphenhydrAMINE ELIX 25 MG/10 ML UDC 6.25 MG PO (13:47)
[2025-06-19] MEDS: ACETAMINOPHEN 325 MG TABLET 650 MG PO (13:49)
--- NOTE | 2025-06-19 14:30 | PC.NURSE ---
Patient is vomiting clear tea colored vomit. Medicated with zofran at this time. Dr. Escalante came speak to patient in regards to NPO order and patient not wanting to drink rest of golytely. Will continue to monitor. No pain at this time. Pt verbalizes understanding of plan of care.
--- NOTE | 2025-06-19 14:39 | PC.SS ---
Rounding note: Pt. pending colonoscopy.
--- NOTE | 2025-06-19 18:38 | PD.IMPROG ---
Documentation for date of: 06/19/25 Subjective Subjective Interval history: Patient very uncooperative drinking the GoLytely it has been going for 3 days Talk to the patient finally canceled the procedure advance diet Case discussed with internal medicine team Exam Vital Signs Temp Pulse Resp BP Pulse Ox O2 Del Method O2 Flow Rate 97.2 F 81 18 126/81 95 Room Air 3 06/19/25 16:00 06/19/25 16:00 06/19/25 16:00 06/19/25 16:00 06/19/25 16:00 06/19/25 16:00 06/18/25 19:15 Objective Labs 06/19/25 05:26 06/19/25 05:26 Labs: Laboratory Results - last 24 hr 06/19/25 05:26 WBC 6.0 RBC 4.04 Hgb 9.5 L Hct 30.6 L MCV 76 L MCH 23.5 L MCHC 31.0 RDW Std Deviation 79.5 H Plt Count 240 D Neut % (Auto) 79 Lymph % (Auto) 6 L [place] % (Auto) 11 Eos % (Auto) 3 Baso % (Auto) 1 Neut # (Auto) 4.7 Lymph # (Auto) 0.4 L [place] # (Auto) 0.6 Eos # (Auto) 0.2 Baso # (Auto) 0.1 Immature Gran # (Auto) 0.06 H Absolute Nucleated RBC 0.02 H Immature Gran % 1 H Nucleated RBC % 0 Sodium 142 Potassium 3.2 L Chloride 99 Carbon Dioxide 27.2 Anion Gap 16 BUN < 5 L Creatinine 0.5 L Estim Creat Clear Calc 76.2 eGFR > 60 BUN/Creatinine Ratio 10 L Glucose 79 Calculated Osmolality 279 Calcium 8.4 Corrected Calcium 8.6 Phosphorus 2.3 L Magnesium 1.6 Total Bilirubin 0.8 AST 14 ALT < 7 L Alkaline Phosphatase 57 Total Protein 6.0 Albumin 3.8 Globulin 2.2 L Albumin/Globulin Ratio 1.7 Impressions Impression: Anemia multifactorial Cancel colonoscopy Advance diet ABG Interpretation ABG results: 06/16/25 10:46 VBG pH 7.54 VBG pCO2 30 L VBG pO2 57 VBG Base Excess 2 Assessment & Plan A&P Narrative 1. Gaby transitional patient admitted with significant anemia awaiting endoscopic procedures, Dr. Harrison. 2. History of ovarian cancer and breast cancer between 20 and 30 years ago treated with prior surgeries chemotherapy in [place]. BRCA genes negative according to daughter. 3. Chronic pain thought related to adhesions related to prior abdominal pelvic surgeries on intrathecal pain pump managed by Dr. Ibarra. 4. I ordered common tumor markers for breast ovary. CEA CA 125 CA 15-3 Thank you for allowing me to evaluate this patient. Time Spent With Patient Time: Total time spent is greater than 50% in coordination of care (as documented) at patient's floor/unit and/or counseling patient:
[2025-06-19] MEDS: MELATONIN 3 MG TABLET PO (20:15)
[2025-06-20] VITALS (10 sets, daily range): BP systolic 104–124; BP diastolic 53–72; PULSE 65–88; RESP 12–17; TEMP 36.3–36.7; O2SAT 94–97; BMI 21.8
[2025-06-20 05:30] LABS: Basophils # (Auto) 0.0 Thou/mm3 (0.0-0.2); Basophils % (Auto) 1 % (0-2.5); Eosinophils # (Auto) 0.1 Thou/mm3 (0.0-0.5); Eosinophils % (Auto) 2 % (0-10); Hematocrit 31.2 % (36.0-46.0); Hemoglobin 9.7 g/dL (12.0-16.0); Immature Granulocytes Auto 0.08 Thou/mm3 (0.00-0.00); Lymphocytes # (Auto) 0.2 Thou/mm3 (1.0-4.8); Lymphocytes % (Auto) 2 % (10-50); Mean Corpuscular HGB Conc 31.1 g/dl (31.0-37.0); Mean Corpuscular Hemoglobin 23.9 pg (25.0-35.0); Mean Corpuscular Volume 77 fL (80-100); Monocytes # (Auto) 0.7 Thou/mm3 (0.0-0.8); Monocytes % (Auto) 8 % (0-12); Neutrophils # (Auto) 7.6 Thou/mm3 (1.8-7.7); Neutrophils % (Auto) 87 % (37-80); Nucleated Red Blood Cell # 0.03 Thou/mm3 (0.00-0.00); Nucleated Red Blood Cell % 0 /100 WBC (0); Platelet Count 334 Thou/mm3 (140-440); Red Blood Count 4.06 Miln/mm3 (4.00-5.20); White Blood Count 8.8 Thou/mm3 (3.6-11.0)
[2025-06-20 06:42] LABS: Alanine Aminotransferase < 7 U/L (10-49); Albumin, Serum 3.8 gm/dL (3.4-4.8); Albumin/Globulin Ratio 1.8 (1.2-2.2); Alkaline Phosphatase 58 U/L (46-116); Anion Gap 16 (7-16); Aspartate Amino Transferase 13 U/L (0-34); BUN/Creatinine Ratio 8 Ratio (12-20); Bilirubin,Total 0.9 mg/dL (0.3-1.2); Blood Urea Nitrogen < 5 mg/dL (9-23); Calcium 8.6 mg/dL (8.3-10.6); Calcium (Corrected) 8.8 mg/dL (8.5-10.1); Carbon Dioxide 25.1 mMol/L (20.0-31.0); Chloride 100 mMol/L (98-107); Creatinine (Component) 0.6 mg/dL (0.6-1.3); Estimated Creatinine Clearance 63.5 mL/min (>60); Globulin 2.1 gm/dL (2.3-3.5); Glucose 91 mg/dL (74-106); Magnesium 1.7 mg/dL (1.6-2.6); Osmolality,Calculated 278 (275-295); Phosphorous 2.6 mg/dL (2.4-5.1); Potassium 2.8 mMol/L (3.4-5.1); Sodium 141 mMol/L (136-145); Total Protein 5.9 gm/dL (5.7-8.2); eGFR > 60 See Note
[2025-06-20] MEDS: SENNA/DOCUSATE SOD 1 TAB TABLET PO (09:25)
[2025-06-20] MEDS: MUPIROCIN OINT 2% 15 GM TUBE TOP (09:32)
[2025-06-20] MEDS: POTASSIUM CHL 10 mEq IVPB 10 MEQ/100 ML BAG 100 MEQ IV (09:34)
[2025-06-20] MEDS: ferumoxytoL (NON-ESRD) 510 MG in SODIUM CHLORIDE 0.9% 100 ML 234 MG IV (10:20)
[2025-06-20 10:27] LABS: Vancomycin,Trough 18.0 mcg/mL (5.0-10.0)
[2025-06-20] MEDS: POTASSIUM CHL 10 mEq IVPB 10 MEQ/100 ML BAG 75 MEQ IV ×2 (10:47→12:05)
--- NOTE | 2025-06-20 13:20 | PC.NURSE ---
Dr. George notifed patient no longer tolerating IV potassium. Has received 3 of 4 bags. States ok to not administer 4th bag. Will draw labs to check KCl level.
--- NOTE | 2025-06-20 13:30 | PD.RESDS ---
Planned Discharge Date 06/20/25 DS: Providers Provider Date of admission: 06/16/25 12:55 Primary care physician: Praneeth Sheikh MD Admitting Provider: Casimiro Goldman MD Attending Provider on Admission: Casimiro Goldman MD Consults: 06/16/25 12:47 Consult to Gastroenterology Stat Comment: Consulting Provider: Eber Harrison 06/16/25 15:39 Consult to Hematology Stat Comment: symptomatic microcytic anemia Consulting Provider: Sherwin Cosme Instructions: Consult for symptomatic microcytic anemia; patient has history of breast and ovarian cancers with new onset unintentional weight loss Attending Provider on DC: Casimiro Goldman MD Discharging Provider: Radha George MD DS: Diagnosis Problem List Completed Was Problem List Reviewed/Reconciled?: Yes Hospital Course Hospital Course Hospital course: Patient is an 79-year-old female with a past medical history of ovarian cancer status post hysterectomy, history of breast cancer status post bilateral mastectomy, chronic pain on pain pump, being managed by Dr. Ibarra depression, anxiety, diagnosed with left lower extremity DVT and pulmonary embolism in 2023, being treated with Xarelto, history of breast cancer s/p bilateral mastectomy, heel spurs, chronic pain (with pain pump) who presented on 06/16 for symptomatic acute anemia. On admission, patient had acute anemia (Hgb 2.9, baseline 10 as of 06/2024). Low MCV indicated microcytic anemia and low iron likely 2/2 to iron deficiency anemia, concern for lower GI bleed as patient is elderly and has not had a colonoscopy in 10 years. Also concern for anemia of chronic disease based on extensive cancer history and lack of medical follow up, pancytopenia may also be concerning for malignancy. Patient is on xarelto due to history of DVT, increasing her risk for ulcers. S/p endoscopy - unremarkable, evidence of Charlotte-en-Y gastrojejunostomy with gastrojejunostomy anastomosis. Patient now s/p EGD with normal esophagus and no acitve bleeding noted. Patient's hgb and hct have remained stable since 3 units of pRBCs transfused. Patient is now refusing colonoscopy and Golytle. Update christoph Ascencio d/c colonscopy. Please have patient follow up with PCP for referral for colonscopy if they so wish to re-evaluate acute blood loss anemia. Iron panel low Iron, low Ferritin, and normal TIBC. Discharge with Iron tablets. B12 and Folate within normal limits. The patient is stable, afebrile and tolerating Per oral medications at the time of discharge. The patient understood and agreed to the treatment plan. #Symptomatic Acute Microcytic Anemia - stable #Iron deficiency anemia #Concern for lower GI Bleed #History of Pulmonary Embolism #Pancytopenia, improved. #S/p RBC transfusion #Chronic Pain #History of Blepharospasm #Generalized Muscle weakness #Dilated common hepatic duct #History of Ovarian/Breast Cancer #Incidential finding, Pulmonary nodule 4 mm #GPC bacteremia? #Nares MRSA #Hx COPD #History of Major Depression Plana of care discussed with attending Dr Jones George PGY 3 Time Spent with Patient Time attestation: Total time spent providing and/or coordinating discharge services: Time spent: Greater than 30 minutes Exam Vital Signs Temp Pulse Resp BP Pulse Ox O2 Del Method O2 Flow Rate 97.7 F 80 17 124/61 94 L Room Air 1 06/20/25 11:53 06/20/25 11:53 06/20/25 11:53 06/20/25 11:53 06/20/25 11:53 06/20/25 11:53 06/20/25 09:52 Narrative Exam Physical Exam General: Awake, in no acute distress Conversational. Elderly woman laying in bed. HEENT: Normocephalic, atraumatic, mucous membranes moist. Heart: Regular rate and rhythm, normal S1 and S2, no murmurs appreciated. Lungs: Clear to auscultation with no wheezing or crackles. Abdomen: Soft, nondistended, positive bowel sounds. Diffuse abdominal tenderness, chronic. GROUND SURVEILLANCE SYSTEMS OPERATOR pump subcutaneous in right lower quadrant. No guarding or rebound tenderness. Neurologic: Alert and oriented x3, no gross neurological deficit, and patient able to move all 4 extremities. Extremities: No edema. Skin: No rash or ecchymoses. Discharge Plan Plan Patient Disposition: Xfer Skilled Nsg Fac (SNF) Patient condition on transfer: Stable Care Plan Goals: As we were Unable to completely rule out GI source of bleeding as patient had refused colonoscopy, given history of DVT and pulmonary embolism, no evidence of further bleeding episodes and stable hemoglobin during hospital stay posttransfusion, recommended to hold Xarelto until follow-up appointment with your primary care physician noted CBC ideally within 3 days. Your low hemoglobin levels/anemia is likely due to combination of multiple factors including dietary deficiency of iron and poor bone marrow response, New medication added, iron supplementation. Please repeat CBC and iron levels in 4 weeks. Recommend to get outpatient colonoscopy and tan room supervisor evaluation. You may also benefit from Crime Prevention Police Officer evaluation of your anemia. Please speak to your primary doctor for referrals to tan room supervisor and Crime Prevention Police Officer. In case of worsening symptoms, black tarry stools or bright red bleeding per rectum, shortness of breath or chest pain, please return to the emergency room. Prescriptions/Referrals Prescriptions/Med Rec: New iron aspgly,[id number] 150-60-25-1 [id number]-mg capsule 1 cap PO QDAY Qty: 30 0RF Continued sennosides [senna] 8.6 mg tablet 8.6 mg PO QDAY hydrocodone-acetaminophen 10-325 mg tablet 1 tab PO Q6H PRN (Reason: pain) mirabegron [Myrbetriq] 50 mg tablet extended release 24 hr 50 mg PO QDAY oxybutynin chloride 5 mg tablet 5 mg PO Q12H Refresh Optive Slava-3 (PF) 0.5-1-0.5 % dropperette 1 drp ophthalmic (eye) Q6H PRN (Reason: eye irritation) CLA 1,000 mg capsule 1 cap PO DAILY fluoxetine 20 mg capsule 20 mg PO DAILY baclofen 10 mg tablet 10 mg PO Q8H melatonin 1 mg tablet 2 mg PO HS PRN (Reason: sleep) psyllium Packet 1 packet PO QAM Rx Instructions: mix into at least 8 oz of water or juice before administering cranberry 450 mg PO DAILY docusate sodium [Colace] 100 mg capsule 100 mg PO QDAY diphenhydramine HCl [Benadryl Allergy] 25 mg tablet 25 mg PO HS ondansetron HCl 4 mg tablet 4 mg PO Q8H magnesium hydroxide [Dulcolax (magnesium hydroxide)] 400 mg/5 mL suspension 30 ml PO 4XD PRN (Reason: constipation) Held Xarelto DVT-PE Treat 30d Start 15 mg (42)- 20 mg (9) tablets,dose pack See Rx Instructions .ROUTE .COMPLEX Qty: 51 0RF Hold Instructions: Resume on 06/25/25. HOLD until follow up appointment with Primary care physician, ideally within 3-5 days. follow CBC to evaluate worsening anemia Rx Instructions: take one-15 mg tablet twice daily for 21 days, then one-20 mg tablet once daily; must take with meal/food Referrals: Ash Darby MD [Physician] - Praneeth Sheikh MD [Primary Care Provider] - Eber Harrison MD [Physician] - Patient/Caregiver Discharge Instructions Education Materials: Anemia, Colonoscopy, Iron Supplements Print Language: Urdu Stand Alone Forms: Marycarmen Award Info., Patient Portal Info Letter Discharge Order Discharge Orders: Discharge (Routine); Ordered 06/20/25 Ordered By: Radha George Quality Discharge Quality Measures VTE prophylaxis Attestestation MD Attestation I have examined the patient, reviewed labs and imaging findings, discussed the case with the resident(s), and reviewed entered orders. I agree with the plan of care as outlined in this note. Time Spent: [address] Jones MD
[2025-06-20 14:16] LABS: Anion Gap 9 (7-16); Carbon Dioxide 27.2 mMol/L (20.0-31.0); Chloride 103 mMol/L (98-107); Potassium 4.2 mMol/L (3.4-5.1); Sodium 139 mMol/L (136-145)
--- NOTE | 2025-06-20 14:22 | PC.SS ---
Addendum entered by Smitha Crespo 06/20/25 14:34: DARIEN Rehana also informed of ETA transportation 1700. Original Note: SS informed patient can discharge today to SNF. SS contacted [facility], she confirmed patient can return to [facility]. Updated clinicals submitted to [facility] via [employer]. Bro was contacted for transport setup, Reservation #[id number] provided. DAVE Thomas scheduled transportation for 1700 via [facility]. Patient's daughter Jennifer Flores and CLARENCE Agn informed of 1700 ETA for transportation.
[2025-06-22 06:54] LABS: Haptoglobin* 141 mg/dL (43-212)
== END 2025-06-20 17:18 | disposition skilled nursing facility (03) | DRG 809 ==
LOC: SERX 12:24 → SERHOLD 12:58 → S2NX 21:17 → S3SX 06-18 04:52
PROVIDERS: Radiology Therapeutic Radiology; Specialist; Student in an Organized Health Care Education/Training Program; Admitting Provider Student in an Organized Health Care Education/Training Program; Emergency Provider Emergency Medicine; PCP Family Medicine; Visit Provider Student in an Organized Health Care Education/Training Program
PROC: (CPT 43239; principal; 2025-06-18 19:00)
DX: D61.818 Other pancytopenia (principal); F11.20 Opioid dependence, uncomplicated; Z85.43 Personal history of malignant neoplasm of ovary; F32.A Depression, unspecified; F41.9 Anxiety disorder, unspecified; Z86.718 Personal history of other venous thrombosis and embolism; Z96.89 Presence of other specified functional implants; R63.4 Abnormal weight loss; Z68.21 Body mass index [BMI] 21.0-21.9, adult; Z90.49 Acquired absence of other specified parts of digestive tract; Z87.891 Personal history of nicotine dependence; K59.00 Constipation, unspecified; R91.1 Solitary pulmonary nodule; D50.9 Iron deficiency anemia, unspecified; G89.29 Other chronic pain; I10 Essential (primary) hypertension; J44.9 Chronic obstructive pulmonary disease, unspecified; K59.03 Drug induced constipation; T40.2X5A Adverse effect of other opioids, initial encounter; Z53.20 Procedure and treatment not carried out because of patient's decision for unspecified reasons; Z66 Do not resuscitate; Z79.01 Long term (current) use of anticoagulants; Z79.899 Other long term (current) drug therapy; Z85.3 Personal history of malignant neoplasm of breast; Z86.711 Personal history of pulmonary embolism; Z90.13 Acquired absence of bilateral breasts and nipples; Z90.710 Acquired absence of both cervix and uterus; Z96.653 Presence of artificial knee joint, bilateral; Z98.82 Breast implant status; Z98.84 Bariatric surgery status; Z99.81 Dependence on supplemental oxygen; Z79.891 Long term (current) use of opiate analgesic; Z85.42 Personal history of malignant neoplasm of other parts of uterus; I49.3 Ventricular premature depolarization; F32.9 Major depressive disorder, single episode, unspecified; Z88.5 Allergy status to narcotic agent; Z88.0 Allergy status to penicillin; R23.1 Pallor
CPT/HCPCS: 36415; 36430; 71045; 71250; 74176; 76705; 80051; 80053; 80061; 80202; 80307; 80320; 81001; 82140; 82378; 82607; 82728; 82746; 82803; 83010; 83540; 83550; 83605; 83735; 83880; 84100; 84132; 84484; 85014; 85018; 85025; 85046; 85610; 86300; 86304; 86850; 86880; 86900; 86901; 86923; 87040; 87077; 87081; 87186; 93005; 93225; 94664; 96365; 96375; 99284; J1756; J2250; J2405; J2470; J3010; J3372; J3475; J3480; J3490; J7030; J7050; P9016; Q0138; A9270; G0480

== ENCOUNTER 2025-07-24 11:25 | Inpatient (IN) | payer MEDICARE, MEDICAID, SELFPAY ==
[2025-07-24] VITALS (21 sets, daily range): BP systolic 108–169; BP diastolic 57–97; PULSE 78–108; RESP 16–97; TEMP 35.9–37.4; O2SAT 94–98; BMI 21.9
--- NOTE | 2025-07-24 11:32 | PC.LAC ---
occult stool test done. positive results noted
--- NOTE | 2025-07-24 11:37 | XR_ITS ---
Examination: AP chest single view Technique AP portable semiupright chest single view Date and time: July 24, 2025 1136 hours, comparison June 16, 2025 INDICATION: Shortness of breath today. FINDINGS: Prominent hyperexpansion Normal heart size Bilateral axillary surgical clips Severe osteopenia No pneumonia or pulmonary edema IMPRESSION: Prominent hyperexpansion No pneumonia or pulmonary edema
--- NOTE | 2025-07-24 11:42 | PD.EDGIBLD ---
ED GI Bleed RME/HPI General Chief complaint: GI Bleed Stated complaint: ABDOMINAL PAIN Time Seen by Provider: 07/24/25 11:38 Arrival date/time: 07/24/25 11:25 RME / HPI RME / HPI Narrative: 79-year-old female patient with significant past medical history of ovarian cancer breast cancer, chronic pain, recent upper GI bleed, [facility]. Patient was changed today and noticed black tarry stool in the day apart. According to EMS on the way to the emergency room patient did change 4 times already with black tarry stool . On my initial evaluation I noticed a lot of black tarry stool noted. Patient also was noted to be very pale looking. Her blood pressure was noted to be on the low 110. Patient is a DNR. Denies any abdominal pain denies any chest pain. Related Data Home Medications ?Medication ?Instructions ?Recorded ?Confirmed baclofen 10 mg tablet 10 mg PO Q8H MUSCLE SPASM 06/17/25 06/17/25 carboxymethyl 0.5 %-glycerin 1 1 drp ophthalmic (eye) Q6H PRN eye 06/17/25 06/17/25 %-polysorb 80 0.5 %-PF eye irritation dropperette (Refresh Optive Slava-3 (PF)) cranberry 450 mg PO DAILY supplement 06/17/25 06/19/25 diphenhydramine HCl 25 mg tablet 25 mg PO HS 06/17/25 06/17/25 (Benadryl Allergy) docusate sodium 100 mg capsule 100 mg PO QDAY 06/17/25 06/17/25 (Colace) fluoxetine 20 mg capsule 20 mg PO DAILY 06/17/25 06/17/25 hydrocodone 10 mg-acetaminophen 1 tab PO Q6H PRN pain 06/17/25 06/17/25 325 mg tablet magnesium hydroxide 400 mg/5 mL 30 ml PO 4XD PRN constipation 06/17/25 06/17/25 oral suspension (Dulcolax (magnesium hydroxide)) melatonin 1 mg tablet 2 mg PO HS PRN sleep 06/17/25 06/17/25 mirabegron 50 mg tablet,extended 50 mg PO QDAY 06/17/25 06/17/25 release 24 hr (Myrbetriq) ondansetron HCl 4 mg tablet 4 mg PO Q8H 06/17/25 06/17/25 oxybutynin chloride 5 mg tablet 5 mg PO Q12H 06/17/25 06/17/25 psyllium 1 packet PO QAM 06/17/25 06/17/25 safflower oil-linoleic acid, 1 cap PO DAILY 06/17/25 06/19/25 conjugated 1,000 mg capsule (CLA) sennosides 8.6 mg tablet (senna) 8.6 mg PO QDAY 06/17/25 06/17/25 Previous Rx's ?Medication ?Instructions ?Recorded rivaroxaban 15 mg (42)-20 mg (9) See Rx Instructions PO .COMPLEX 07/18/24 tablets in a starter pack (Xarelto #51 tabs DVT-PE Treatment 30-Day Starter) Held on 06/20/25. Instructions: Resume on 06/25/25. HOLD until follow up appointment with Primary care physician, ideally within 3-5 days. follow CBC to evaluate worsening anemia iron 150 mg-C 60 mg-B12 25 1 cap PO QDAY #30 caps 06/20/25 mcg-folic acid 1 [id number]-yl.acid capsule Allergies Allergy/AdvReac Type Severity Reaction Status Date / Time acetaminophen (From Percocet) Allergy Verified 07/24/25 11:43 ceftriaxone Allergy Verified 07/24/25 11:43 codeine Allergy Verified 07/24/25 11:43 hydromorphone Allergy Verified 07/24/25 11:43 metoclopramide Allergy Verified 07/24/25 11:43 morphine Allergy Verified 07/24/25 11:43 oxycodone Allergy Verified 07/24/25 11:43 pentazocine Allergy Verified 07/24/25 11:43 promethazine Allergy Verified 07/24/25 11:43 Review of Systems Review of Systems Narrative Review of Systems: Review of system reviewed and within normal limits except mentioned in HPI ED Exam Narrative Physical exam: VITAL SIGNS: Reviewed. GENERAL APPEARANCE: Alert and interactive, follows commands, no acute distress, HEAD AND FACE: Non-traumatic. ENT: PERRL, pale conjunctiva, eyelid no trauma, Mucous membrane moist. NECK: Supple, nontender, no nuchal rigidity. CHEST: No tenderness, no crepitus, no paradoxical movement, no retractions. LUNGS: Clear, well ventilated, symmetric, no rales, no wheezing, no ronchi, no stridor, good breath sounds bilaterally. HEART: Regular rate, regular rhythm, no murmur, no gallops. ABDOMEN: Soft, positive bowel sounds, nondistended, no guarding, nontender, no rebound, no masses, RECTAL: Deferred. GENITAL: Deferred. NEUROLOGICAL: Gross motor function intact sensory function intact, Appropriate for age. MUSCULOSKELETAL: low back nontender, full range of motion. EXTREMITIES: Nontender, full range of motion. SKIN: Color pale, dry, no rash, no lacerations, no abrasions, no contusions. LYMPHATICS: Deferred. Course Quality Measures none Orders Category Date Time Status Admit to Inpatient Status Routine Admission 07/24/25 14:30 Active Patient Condition Routine Admission 07/24/25 14:29 Ordered Activity as Tolerated Routine Care 07/24/25 14:33 Ordered COVID-19 Screening Questionnaire NOW Care 07/24/25 13:46 Active Decision to Admit X1 Care 07/24/25 13:46 Completed Insert NG / OG tube NOW Care 07/24/25 14:26 Active NPO NOW Care 07/24/25 14:33 Active Notify provider NEEDED Care 07/24/25 14:29 Active Strict Intake and Output Routine Care 07/24/25 14:33 Ordered Transfuse,blood/blood products ONCE Care 07/24/25 11:35 Active Consult to Gastroenterology Stat Cons 07/24/25 13:46 Ordered Diet NPO (NOW) Diet 07/24/25 14:33 Active XR chest 1V Stat Exams 07/24/25 11:37 Completed B-Type Natriuretic Peptide Stat Lab 07/24/25 11:45 Completed CBC Stat Lab 07/24/25 11:45 Completed Comprehensive Metabolic Panel Stat Lab 07/24/25 11:45 Completed FFP [Fresh Frozen Plasma] Stat Lab 07/24/25 11:48 Results Magnesium Stat Lab 07/24/25 11:45 Completed Occult Blood, Stool (LAB) Stat Lab 07/24/25 11:32 Completed Partial Thromboplastin Time Stat Lab 07/24/25 11:45 [address] Review Blood Smear Stat Lab 07/24/25 11:45 Completed Prothrombin Time with INR Stat Lab 07/24/25 11:45 Completed Troponin I Stat Lab 07/24/25 11:45 Completed Type and Screen Stat Lab 07/24/25 11:48 Results Urinalysis, C/S if Indicated Stat Lab 07/24/25 11:37 Ordered prbc [Red Blood Cells] Stat Lab 07/24/25 11:48 Results HYDROcodone/APAP 10/325 [Roggen 10/325] Med 07/24/25 13:34 Discontinued 1 tab PO X1 ONE Midazolam Inj [Versed Inj] Med 07/24/25 14:26 Discontinued 4 mg IVP X1 ONE POTASSIUM CHL 10 mEq IVPB [Kcl Ivpb] Med 07/24/25 12:28 Discontinued 10 meq in 100 ml IV X1 Pantoprazole Inj [Protonix Inj] Med 07/24/25 11:35 Discontinued 80 mg IVP X1 ONE Ringers Lactated 1000 ml [Lactated Ringers] 1,000 ml Med 07/24/25 11:35 Discontinued IV 999 mls/hr Code Status Routine Oth 07/24/25 14:29 Ordered Oxygen Delivery DAILY RT 07/24/25 14:33 Active Vital Signs Vital signs: Vital Signs Temperature 99.4 F 07/24/25 11:52 Pulse Rate 87 07/24/25 11:52 Respiratory Rate 18 07/24/25 11:52 Blood Pressure 108/57 L 07/24/25 11:52 Pulse Oximetry (%) 97 07/24/25 11:52 Oxygen Delivery Method Room Air 07/24/25 11:52 GI Bleed MDM Narrative MDM Narrative:: 79-year-old female patient with significant past medical history of ovarian cancer breast cancer, chronic pain, recent upper GI bleed, [facility]. Patient was changed today and noticed black tarry stool in the day apart. According to EMS on the way to the emergency room patient did change 4 times already with black tarry stool . On my initial evaluation I noticed a lot of black tarry stool noted. Patient also was noted to be very pale looking. Her blood pressure was noted to be on the low 110. Patient is a DNR. Denies any abdominal pain denies any chest pain. Emergency blood transfusion was initiated right away due to actively bleeding and history of severe anemia, last month her hemoglobin was noted to be 2.9. Patient is asking for pain medication I suggest to give her morphine IV however she told me that she wants Roggen 10 p.o. instead. Patient's hemoglobin was noted to be 5.9, hematocrit of 19.2. Patient is still actively having black tarry stool, we are changed 3 times in the ED. Patient's blood pressure was noted to be 164/79. Received 3 units of packed RBC in the ED. Was also given IV Protonix, and IV fluids. NG tube was inserted, so we can give GoLytely through that NG tube I discussed this case with Dr. Harrison, GI on-call, who told me to give GoLytely through NG tube. Patient agrees to have endoscopy/colonoscopy in the morning. Discussed with hospitalist, who admitted the patient. Patient data External records reviewed:: None Clinical information provided by:: patient Social determinants that could affect healthcare access:: none Patient has the following chronic illnesses:: Upper GI bleed How is presenting disease/condition affected by chronic disease/condition?: exacerbated by Evaluation data The following diagnostics were reviewed and interpreted by me:: lab results and radiology exam(s) Lab and/or radiology exams considered but not ordered:: None Interpretation Summary: See results MDM Medications / Prescriptions Medications or Prescriptions considered but not ordered:: None Medication administrations:: Medication Administration History Lactated Ringer's (Lactated Ringers) 1,000 mls @ 75 mls/hr IV .[id number] VANESSA Stop: 08/23/25 14:44 Potassium Chloride (Kcl Ivpb) 10 meq in 100 mls @ 100 mls/hr IV Q1H [facility] Stop: 07/24/25 21:18 Ondansetron HCl (Ondansetron Inj 2 Mg/Ml Inj 2 Ml) 4 mg IVP Q6H PRN; Protocol PRN Reason: NAUSEA OR VOMITING Stop: 08/23/25 14:39 Pantoprazole Sodium (Pantoprazole Inj 40 Mg Vial) 40 mg IVP BID VANESSA Stop: 08/23/25 20:59 Discontinued Medications Hydrocodone Bitart/Acetaminophen (Hydrocodone/Apap 10/325 Tab) 1 tab PO X1 ONE Stop: 07/24/25 13:35 Last Admin: 07/24/25 15:47 Dose: Not Given Documented By: TM Non-Admin Reason: Patient Refused Lactated Ringer's (Lactated Ringers) 1,000 mls @ 999 mls/hr IV .Q1H1M ONE Stop: 07/24/25 12:35 Last Infusion: 07/24/25 13:09 Dose: Infused Documented By: Admin: 07/24/25 12:08 Dose: 999 mls/hr Documented By: TM Potassium Chloride (Kcl Ivpb) 10 meq in 100 mls @ 100 mls/hr IV X1 ONE Stop: 07/24/25 13:27 Last Infusion: 07/24/25 13:40 Dose: Infused Documented By: Admin: 07/24/25 12:40 Dose: 100 mls/hr Documented By: TM Midazolam HCl (Midazolam Inj 1 Mg/Ml Vial 2 Ml) 4 mg IVP X1 ONE Stop: 07/24/25 14:27 Last Admin: 07/24/25 15:38 Dose: 4 mg Documented By: TM Pantoprazole Sodium (Pantoprazole Inj 40 Mg Vial) 80 mg IVP X1 ONE Stop: 07/24/25 11:36 Last Admin: 07/24/25 12:07 Dose: 80 mg Documented By: TM Polyethylene Glycol/Electrolytes (Na Ward/Nahco3/Ankush/Peg (Golytely) 4,000 Ml Btl) 4,000 ml NG X1 ONE Stop: 07/24/25 14:44 Protonix IV, Versed IV, potassium replacement, IV fluids, Roggen Consultations Consultation(s) initiated? (list below): Yes Consultation #1 (Physician, Specialty, Details): Dr. Harrison thank you DrLanre Diagnosis GI bleed differential diagnosis: infectious diarrhea, esophageal varices, Upper gastrointestinal hemorrhage and Lower gastrointestinal hemorrhage Most likely diagnosis given after review of the tests above:: Severe anemia, upper GI bleed Admission Indicated Admission indicated?: indicated Admission Request Was there a request for admission?: Yes Admission Attestation Admission request attestation: Discussed case with [Dr. Mason ] from Hospitalist service regarding admission. Discussed patients ED course, exam findings, labs, and radiology results. The Hospitalist [agrees] to accept the patient for admission. Disposition Plan Disposition Plan: Admit Discharge Plan Plan Patient Disposition: Admit Acute Care w/in Hospital Discharge Disposition comment: Stable Problem List Clinical Impression: Severe anemia, Upper gastrointestinal hemorrhage
[2025-07-24 11:57] LABS: Basophils # (Auto) 0.0 Thou/mm3 (0.0-0.2); Basophils % (Auto) 0 % (0-2.5); Eosinophils # (Auto) 0.1 Thou/mm3 (0.0-0.5); Eosinophils % (Auto) 1 % (0-10); Immature Granulocytes Auto 0.05 Thou/mm3 (0.00-0.00); Lymphocytes # (Auto) 1.0 Thou/mm3 (1.0-4.8); Lymphocytes % (Auto) 11 % (10-50); Mean Corpuscular HGB Conc 30.7 g/dl (31.0-37.0); Mean Corpuscular Hemoglobin 26.0 pg (25.0-35.0); Mean Corpuscular Volume 85 fL (80-100); Monocytes # (Auto) 0.7 Thou/mm3 (0.0-0.8); Monocytes % (Auto) 7 % (0-12); Neutrophils # (Auto) 7.5 Thou/mm3 (1.8-7.7); Neutrophils % (Auto) 80 % (37-80); Nucleated Red Blood Cell # 0.00 Thou/mm3 (0.00-0.00); Nucleated Red Blood Cell % 0 /100 WBC (0); Platelet Count 339 Thou/mm3 (140-440); RDW Standard Deviation 68.4 fL (36.4-46.3); Red Blood Count 2.27 Miln/mm3 (4.00-5.20); White Blood Count 9.4 Thou/mm3 (3.6-11.0)
[2025-07-24] MEDS: RINGERS LACTATED 1000 ML 1,000 ML 999 ML IV (12:08)
[2025-07-24 12:11] LABS: INR 1.4 (0.9-1.3); Partial Thromboplastin Time 27.8 Seconds (22.0-36.0); Prothrombin Time 15.1 Seconds (9.0-12.2)
[2025-07-24 12:14] LABS: Hematocrit 19.2 % (36.0-46.0); Hemoglobin 5.9 g/dL (12.0-16.0)
[2025-07-24 12:24] LABS: Alanine Aminotransferase < 7 U/L (10-49); Albumin, Serum 3.5 gm/dL (3.4-4.8); Albumin/Globulin Ratio 1.9 (1.2-2.2); Alkaline Phosphatase 59 U/L (46-116); Anion Gap 17 (7-16); Aspartate Amino Transferase 13 U/L (0-34); BUN/Creatinine Ratio 82 Ratio (12-20); Bilirubin,Total 0.3 mg/dL (0.3-1.2); Blood Urea Nitrogen 41 mg/dL (9-23); Calcium 8.8 mg/dL (8.3-10.6); Calcium (Corrected) 9.2 mg/dL (8.5-10.1); Carbon Dioxide 16.5 mMol/L (20.0-31.0); Chloride 111 mMol/L (98-107); Creatinine (Component) 0.5 mg/dL (0.6-1.3); Estimated Creatinine Clearance 76.2 mL/min (>60); Globulin 1.8 gm/dL (2.3-3.5); Glucose 182 mg/dL (74-106); Magnesium 1.8 mg/dL (1.6-2.6); Osmolality,Calculated 301 (275-295); Potassium 2.9 mMol/L (3.4-5.1); Sodium 144 mMol/L (136-145); Total Protein 5.3 gm/dL (5.7-8.2); Troponin I < 0.020 ng/mL (0.0-0.045); eGFR > 60 See Note
[2025-07-24 12:28] LABS: B-Type Natriuretic Peptide 45 pg/mL (0-100)
[2025-07-24] MEDS: POTASSIUM CHL 10 mEq IVPB 10 MEQ/100 ML BAG 100 MEQ IV ×6 (12:40→22:02)
[2025-07-24 13:06] LABS: OBS Card Lot # 01-25; OBS Developer Expiration Date 09-30-26; OBS Developer Lot # 23003; OBS Performed By flord1; OBS QC OK? Yes; Occult Blood, Stool Positive (Negative)
--- NOTE | 2025-07-24 15:00 | ESHP_ITS ---
<Statement entered by Makenna Valente MD - 08/04/25 08:45> I reviewed above note and agree with findings and plans. I have also personally examined the patient with medicine team and went over assessment and plan with medical team including real estate intern and resident physician. <Statement entered by Marlon Florentino MD - 07/24/25 15:51> Senior Resident Attestation: I supervised/discussed management plan with real estate intern physician Dr. Eckert, and was involved in the care of this patient. I personally saw and examined the patient and discussed the assessment and plan with the entire medicine team, including my attending. I agree with the assessment and plan as documented. 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 Patient initially rejected colonoscopy but eventulally agreed to have it if golytely will be given via NG. GI was consulted, patient was admitted. Her Hgb was 5.9, 3 units of pRBCs were ordered, will follow up on HH. Patient's care was discussed with attending physician, Dr. Valente. Marlon Florentino MD PGY-3. 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 Patient was changed today and noticed black tarry stool around 9AM this morning. Shortly afterward, she began experiencing intermittent lower abdominal pain, described as cramping and associated with a sensation of needing to have a bowel movement. She also reports associated symptoms including shortness of breath and decreased appetite. Patient also reports unintentional weight loss over the past two months despite increased efforts to maintain her nutritional intake. She denies any episodes of vomiting but endorses dry heaving. Her last colonoscopy was performed over 10 years ago and was reportedly normal. Of note, patient was recently hospitalized at [facility] for low hemoglobin, with a concern for a gastrointestinal bleed. An EGD was performed, which was negative. At that time, a colonoscopy was recommended, but the patient was unable to do the bowel prep. Patient was discharged without undergoing the procedure. Today, although initially refusing, the patient ultimately agreed to proceed with the colonoscopy. Golytely preparation is being administered via NG tube. ED Course - Vitals: BP 166/78 , HR 95, RR 22, T 97.7F, O2 sat 96% on room air. - Labs: WBC 9.4, Hgb 5.9, Hct 19.2, MCV 85, Plt 339; PT 15.1, INR 1.4, APTT 27.8; sodium 144, potassium 2.9, chloride 111, bicarb 16.5, anion gap 17, BUN 41, creatinine 0.5, BUN/creatinine ratio 82, glucose 182. - Imaging: CXR showed no pneumonia or pulmonary edema, EKG showed sinus rhythm with occasional supraventricular premature complexes. - Treatment: Pantoprazole sodium 80 mg x1, LR 1000 mL, potassium chloride 10mEq. Transfused 1 bag of pRBC. Review of Systems Review of Systems Narrative Review of Systems: All 13 review of systems are negative except as listed above in the HPI. Past Medical History Past Medical History Comments PMH COMMENT: Past Medical History: as above + longstanding abdominal pain secondary to adhesions from ovarian cancer surgeries, blepharospasm, constipation, depression, anxiety Past Surgical History: appendectomy, cholecystectomy, hysterectomy, double mastectomy, gastric bypass, bilateral total knee replacement Family History: Social History: - Smokin pack year smoker (17 years x 3 packs a day; quit in 1983) - Alcohol: denies - Illicit drugs: denies - Residence: [facility] Current Medications: pending med recs Allergies: acetaminophen, ceftriaxone, codeine, Dilaudid, Reglan, morphine, oxycodone, promethazine, pentazocine Exam Vital Signs Temp Pulse Resp BP Pulse Ox O2 Del Method 97.7 F 95 22 H 166/78 H 96 Room Air 07/24/25 14:43 07/24/25 14:43 07/24/25 14:43 07/24/25 14:43 07/24/25 14:43 07/24/25 14:35 Narrative Exam Physical Exam General: awake and in no acute distress, conversational HEENT: normocephalic, atraumatic, dry mucuous membranes of mouth, no mouth ulcers, eyes were closed due to blepharospasm Heart: RRR, normal S1 and S2, no murmurs, no edema in lower extremities Lungs: clear to auscultation with no wheezing or crackles Abdomen: soft, non distended, pain pump in right lateral abdomen, no guarding and no rebound tenderness Neurologic: alert and oriented x3, no gross neurological deficit, and patient able to move all 4 extremities Skin: no rash, no ecchymosis, extremely pale Results: Labs 07/24/25 11:45 07/24/25 15:14 Labs: Short CBC 07/24/25 Range/Units 11:45 WBC 9.4 (3.6-11.0) Thou/mm3 Hgb 5.9 L* (12.0-16.0) g/dL Hct 19.2 L* (36.0-46.0) % Plt Count 339 (140-440) Thou/mm3 BMP 07/24/25 11:45 Sodium 144 Potassium 2.9 L Chloride 111 H Carbon Dioxide 16.5 L BUN 41 H Creatinine 0.5 L Glucose 182 H Calcium 8.8 Cardiac Enzymes 07/24/25 Range/Units 11:45 Troponin I < 0.020 (0.0-0.045) ng/mL Liver Function 07/24/25 Range/Units 11:45 Total Bilirubin 0.3 (0.3-1.2) mg/dL AST 13 (0-34) U/L ALT < 7 L (10-49) U/L Alkaline Phosphatase 59 (46-116) U/L Albumin 3.5 (3.4-4.8) gm/dL Quality Measures Quality Measures VTE prophylaxis Advance care planning discussed with:: patient Medications Home Medications and Allergies Home Medications ?Medication ?Instructions ?Recorded ?Confirmed ?Type baclofen 10 mg tablet 10 mg PO Q8H MUSCLE SPASM 06/17/25 History carboxymethyl 0.5 %-glycerin 1 1 drp ophthalmic (eye) Q6H PRN eye 06/17/25 06/17/25 History %-polysorb 80 0.5 %-PF eye irritation dropperette (Refresh Optive Slava-3 (PF)) cranberry 450 mg PO DAILY supplement 0 06/17/25 06/19/25 History diphenhydramine HCl 25 mg tablet 25 mg PO HS 06/17/25 06/17/25 History (Benadryl Allergy) docusate sodium 100 mg capsule 100 mg PO QDAY 06/17/25 06/17/25 History (Colace) fluoxetine 20 mg capsule 20 mg PO DAILY 06/17/2505/27 History hydrocodone 10 mg-acetaminophen 1 tab PO Q6H PRN pain 06/17/25 06/17/25 History 325 mg tablet magnesium hydroxide 400 mg/5 mL 30 ml PO 4XD PRN const ipation 06/17/25 06/17/25 History oral suspension (Dulcolax (magnesium hydroxide)) melatonin 1 mg tablet 2 mg PO HS PRN sleep 5 06/17/25 History mirabegron 50 mg tablet,extended 50 mg PO QDAY 5 06/17/25 History release 24 hr (Myrbetriq) ondansetron HCl 4 mg tablet 4 mg PO Q8H 06/17/2506/17 History oxybutynin chloride 5 mg tablet 5 mg PO Q12H 06/17/25 06/17/25 History psyllium 1 packet PO QAM 06/17/25 History safflower oil-linoleic acid, 1 cap PO DAILY 06/17/25 0 06/19/25 History conjugated 1,000 mg capsule (CLA) sennosides 8.6 mg tablet (senna) 8.6 mg PO QDAY 06/17/25 History fentanyl pump 07/24/25 History Allergies Allergy/AdvReac Type Severity Reaction Status Date / Time acetaminophen (From Percocet) Allergy Verified 07/24/25 11:43 ceftriaxone Allergy Verified 07/24/25 11:43 codeine Allergy Verified 07/24/25 11:43 hydromorphone Allergy Verified 07/24/25 11:43 metoclopramide Allergy Verified 07/24/25 11:43 morphine Allergy Verified 07/24/25 11:43 oxycodone Allergy Verified 07/24/25 11:43 pentazocine Allergy Verified 07/24/25 11:43 promethazine Allergy Verified 07/24/25 11:43 Visit Medications Lactated Ringer's (Lactated Ringers) 1,000 mls @ 75 mls/hr IV .[id number] VANESSA Stop: 08/23/25 14:44 Ondansetron HCl (Ondansetron Inj 2 Mg/Ml Inj 2 Ml) 4 mg IVP Q6H PRN; Protocol PRN Reason: NAUSEA OR VOMITING Stop: 08/23/25 14:39 Discontinued Medications Hydrocodone Bitart/Acetaminophen (Hydrocodone/Apap 10/325 Tab) 1 tab PO X1 ONE Stop: 07/24/25 13:35 Lactated Ringer's (Lactated Ringers) 1,000 mls @ 999 mls/hr IV .Q1H1M ONE Stop: 07/24/25 12:35 Last Infusion: 07/24/25 13:09 Dose: Infused Potassium Chloride (Kcl Ivpb) 10 meq in 100 mls @ 100 mls/hr IV X1 ONE Stop: 07/24/25 13:27 Last Infusion: 07/24/25 13:40 Dose: Infused Midazolam HCl (Midazolam Inj 1 Mg/Ml Vial 2 Ml) 4 mg IVP X1 ONE Stop: 07/24/25 14:27 Pantoprazole Sodium (Pantoprazole Inj 40 Mg Vial) 80 mg IVP X1 ONE Stop: 07/24/25 11:36 Last Admin: 07/24/25 12:07 Dose: 80 mg Polyethylene Glycol/Electrolytes (Na Ward/Nahco3/Ankush/Peg (Golytely) 4,000 Ml Btl) 4,000 ml NG X1 ONE Stop: 07/24/25 14:44 Assessment & Plan Plan 79 year-old female with past medical history significant for ovarian cancer s/p hysterectomy, depression, anxiety, pulmonary embolism and left lower extremity DVT on Xarelto, breast cancer s/p bilateral mastectomy, and chronic pain (with pain pump) presented for melena, admitted for GI bleed. #Melena #Possible GI Bleed (upper vs lower GI bleed vs NSAID-induced gastritis or PUD vs unknown source) #Acute blood loss anemia Patient presented with melena concerning for upper GI bleed. DDX: gastric and/or duodenal ulcers vs esophagitis vs gastritis vs diverticulitis vs hemorrhoids vs cancer. Pertinent labs: Hgb 5.9 (L), Hct 19.2 (L), MCV 85; PT 15.1 (H), INR 1.4 (H), PTT 27.8; BUN 41 (H), BUN:Cr 82 (H). Colonoscopy more than 10 years ago. Patient is on Xarelto due to history of DVT. Increased risk for ulcers. Received 1 unit of pRBCs in the ED. EGD (06/18): normal esophagus, Charlotte-en-Y gastrojejunostomy with gastrojejunal anastomosis characterized by healthy appearimng mucosa. Plan: - Rule out GI source of bleeding, schedule for fiberoptic EGD and colonoscopy with potential biopsy and therapeutic intervention under moderate IV sedation. - GI consulted, appreciate recs. - Bowel prep with golytely via NG tube, once clear then NPO - Hold Xarelto in context of suspected GI bleed. - IVF resuscitation to maintain MAP > 65 - IV Pantoprazole 40 mg BID. - Continue pRBC transfusions as needed based on symptoms and hemoglobin trend. - Transfuse if Hgb < 7 (current Hgb 5.9). - Serial H/H. - Monitor vital signs. #History of Pulmonary Embolism #History of DVT On chronic anticoagulation with Xarelto at home. Anticoagulation currently held in the setting of possible GI bleed. Patient at elevated risk for recurrent VTE given history of both PE and DVT. Plan: - Continue to hold Xarelto pending GI evaluation (EGD/colonoscopy). - Employ mechanical prophylaxis with SCDs while off anticoagulation. - Monitor closely for signs of VTE (leg swelling, chest pain, hypoxia, tachycardia). - Resume anticoagulation at earliest safe opportunity once GI source ruled out or controlled. #Chronic Pain #Generalized Muscle Weakness Longstanding history of chronic pain, managed with [employer]IST fentanyl (per Dr. Ibarra) and [place] 10 mg PO at home. At high risk for opioid adverse effects including sedation, respiratory depression, and functional decline. Muscle weakness may be multifactorial (deconditioning, chronic opioid use, prior surgeries, underlying malignancy). Plan: - Continue [employer] fentanyl for pain - Verify home regimen and reconcile outpatient prescriptions. - Monitor closely for opioid side effects: sedation, respiratory depression, constipation. - Narcan available PRN for opioid overdose or respiratory compromise. - Supportive care: bowel regimen (stool softener/laxative) to prevent opioid- induced constipation. #Chronic Constipation Likely secondary to long-term opioid use (fentanyl [employer]IST pump, [place] at home). At risk for opioid-induced bowel dysfunction and recurrent symptoms. Plan: - Initiate GoLYTELY prep via NG tube for colonoscopy. - Reassess after colonoscopy for ongoing needs and adjust plan accordingly. #History of Ovarian/Breast Cancer Ovarian cancer (2008), breast cancer (1991). S/p hysterectomy and bilateral mastectomy. #Hx COPD Currently stable, no evidence of acute exacerbation (denies increased cough, sputum production, or worsening dyspnea; exam without wheezes/rhonchi; stable oxygenation). Plan: - Maintain supplemental O2 only if needed, goal SpO2 88?92%. - Monitor for signs of exacerbation (increased sputum volume/purulence, worsening dyspnea). #History of Major Depression Patient has a past medical history of major depression per chart review from SNF. Takes Fluoxetine 20 mg daily at home. No signs of SI or HI. Plan: -Continue home dose Fluoxetine. -Monitor for SI or HI. Health Maintenance Disposition: further management of anemia, pending colonoscopy and endoscopy DVT prophylaxis: SCDs GI prophylaxis: Protonix 40 mg BID Diet: NPO after Golytely prep CODE STATUS: DNR Patient plan of care was discussed with the senior resident, Dr. Florentino, and attending physician, Dr. Valente. Ashley Eckert, DO PGY-1
[2025-07-24 15:25] LABS: Path Review Blood Smear Sent to Pathologist
[2025-07-24] MEDS: MIDAZOLAM INJ 1 MG/ML VIAL 2 ML 4 MG IVP (15:38)
--- NOTE | 2025-07-24 15:53 | XR_ITS ---
Examination: AP chest single view Technique one AP portable semiupright chest single view Date and time: July 24, 2025 1555 hrs., Comparison July 24, 2025 Indications: Post orogastric tube placement. Findings: Orogastric tube proximal stomach Mild prominence left ventricle No pneumonia or pulmonary edema Impression: Advance the orogastric tube 7 cm
[2025-07-24 16:04] LABS: Albumin, Serum 3.3 gm/dL (3.4-4.8); Anion Gap 13 (7-16); BUN/Creatinine Ratio 64 Ratio (12-20); Blood Urea Nitrogen 32 mg/dL (9-23); Calcium 8.5 mg/dL (8.3-10.6); Calcium (Corrected) 9.1 mg/dL (8.5-10.1); Carbon Dioxide 18.3 mMol/L (20.0-31.0); Chloride 112 mMol/L (98-107); Creatinine (Component) 0.5 mg/dL (0.6-1.3); Estimated Creatinine Clearance 76.2 mL/min (>60); Glucose 247 mg/dL (74-106); Osmolality,Calculated 299 (275-295); Phosphorous 3.0 mg/dL (2.4-5.1); Potassium 2.9 mMol/L (3.4-5.1); Sodium 143 mMol/L (136-145); eGFR > 60 See Note
--- NOTE | 2025-07-24 16:13 | PC.NURSE ---
PT GIVEN VERSED FOR NG TUBE PLACEMENT, O2 DROPPED TO 92% PLACED ON OXY MASK, HELD IN ED A LITTLE LONGER UNTIL PT WAS BACK AT BASELINE ON RA. PT 97% RA NOW SENT TO FLOOR W/RN DERICK, PT CONNECTED TO TELE.
--- NOTE | 2025-07-24 16:32 | PC.NURSE ---
pt came up to the floor at 1630
--- NOTE | 2025-07-24 17:11 | PD.IMCONS ---
HPI Data of Consult Requesting Physician: Makenna Valente MD Primary Care Provider: Physician No Primary/Family Consult Narrative Reason for consult: dark melanotic stool, hematochezia, H/H 5.9/19.2 History of present illness: 79 years old female comes in for evaluation to the emergency room because of black tarry stools and the presenting hemoglobin hematocrit of 5.9 and 19.2 Patient has a history of COPD ovarian carcinoma 2009 breast carcinoma 1991 and chronic pain requiring intrathecal pain pump which is the right lower abdomen DVT has been on Xarelto in the past Endoscopy done on 06/18/2025 showed Charlotte-en-Y gastrojejunostomy the anastomotic site was patent and no ulceration seen along with esophagitis Patient has refused colonoscopy at that time cc:: cc: Makenna Valente MD Past Medical History Surgical History OTHER SURGICAL HX: As in the history of present illness Meds Home Medications and Allergies Home Medications ?Medication ?Instructions ?Recorded ?Confirmed ?Type baclofen 10 mg tablet 10 mg PO Q8H MUSCLE SPASM 06/17/25 07/25/25 History carboxymethyl 0.5 %-glycerin 1 1 drp ophthalmic (eye) Q6H PRN eye 06/17/25 07/25/25 History %-polysorb 80 0.5 %-PF eye irritation dropperette (Refresh Optive Slava-3 (PF)) cranberry 450 mg PO DAILY supplement 06/17/25 07/25/25 History diphenhydramine HCl 25 mg tablet 25 mg PO HS 06/17/25 07/25/25 History (Benadryl Allergy) docusate sodium 100 mg capsule 100 mg PO QDAY 06/17/25 07/25/25 History (Colace) fluoxetine 20 mg capsule 20 mg PO DAILY 06/17/25 07/25/25 History hydrocodone 10 mg-acetaminophen 1 tab PO Q6H PRN pain 06/17/25 07/25/25 History 325 mg tablet magnesium hydroxide 400 mg/5 mL 30 ml PO 4XD PRN constipation 06/17/25 07/25/25 History oral suspension (Dulcolax (magnesium hydroxide)) melatonin 1 mg tablet 2 mg PO HS PRN sleep 06/17/25 07/25/25 History mirabegron 50 mg tablet,extended 50 mg PO QDAY 06/17/25 07/25/25 History release 24 hr (Myrbetriq) ondansetron HCl 4 mg tablet 4 mg PO PRN 06/17/25 07/25/25 History oxybutynin chloride 5 mg tablet 5 mg PO Q12H 06/17/25 07/25/25 History psyllium 1 packet PO HS 06/17/25 07/25/25 History safflower oil-linoleic acid, 1 cap PO DAILY 06/17/25 07/25/25 History conjugated 1,000 mg capsule (CLA) sennosides 8.6 mg tablet (senna) 8.6 mg PO PRN 06/17/25 07/25/25 History fentanyl pump 07/24/25 History rivaroxaban 20 mg tablet (Xarelto) 20 mg PO DAILY 07/25/25 07/25/25 History Allergies Allergy/AdvReac Type Severity Reaction Status Date / Time acetaminophen (From Percocet) Allergy Verified 07/24/25 11:43 ceftriaxone Allergy Verified 07/24/25 11:43 codeine Allergy Verified 07/24/25 11:43 hydromorphone Allergy Verified 07/24/25 11:43 metoclopramide Allergy Verified 07/24/25 11:43 morphine Allergy Verified 07/24/25 11:43 oxycodone Allergy Verified 07/24/25 11:43 pentazocine Allergy Verified 07/24/25 11:43 promethazine Allergy Verified 07/24/25 11:43 Exam Vital Signs Temp Pulse Resp BP Pulse Ox O2 Del Method 96.8 F 103 H 20 168/84 H 95 Room Air 07/24/25 17:04 07/24/25 17:04 07/24/25 17:04 07/24/25 17:04 07/24/25 17:04 07/24/25 14:35 Constitutional Comments: Chronically ill-appearing Routine Respiratory Exam Comments: Normal to auscultation Routine Abdominal Exam Comments: Soft nontender Results Labs 07/25/25 04:59 07/25/25 04:59 Labs: Short CBC 07/24/25 Range/Units 11:45 WBC 9.4 (3.6-11.0) Thou/mm3 Hgb 5.9 L* (12.0-16.0) g/dL Hct 19.2 L* (36.0-46.0) % Plt Count 339 (140-440) Thou/mm3 BMP 07/24/25 07/24/25 11:45 15:14 Sodium 144 143 Potassium 2.9 L 2.9 L Chloride 111 H 112 H Carbon Dioxide 16.5 L 18.3 L BUN 41 H 32 H Creatinine 0.5 L 0.5 L Glucose 182 H 247 H D Calcium 8.8 8.5 Cardiac Enzymes 07/24/25 Range/Units 11:45 Troponin I < 0.020 (0.0-0.045) ng/mL Liver Function 07/24/25 07/24/25 Range/Units 11:45 15:14 Total Bilirubin 0.3 (0.3-1.2) mg/dL AST 13 (0-34) U/L ALT < 7 L (10-49) U/L Alkaline Phosphatase 59 (46-116) U/L Albumin 3.5 3.3 L (3.4-4.8) gm/dL Assessment and Plan Additional Assessment & Plan Additional Plan: # Melena/hematochezia # Acute posthemorrhagic anemia plan Agree with blood transfusion GoLytely via NGT at 200 cc an hour Consent obtained for upper endoscopy as well as colonoscopy for further evaluation of her current clinical picture Other medical problems include COPD Chronic pain syndrome requiring pain pump ovarian carcinoma since 2008 Breast carcinoma since 1991 DVT lower extremities Thank you very much for the opportunity to participate in the care of this patient
--- NOTE | 2025-07-24 17:39 | XR_ITS ---
Examination: AP chest single view. Technique one AP portable semiupright chest single view. Date and time: July 24, 2025, 1752 hrs. Indications: Post orogastric tube placement Findings: Orogastric tube sidehole at the GE junction Significant hyperexpansion Rounded left ventricle Impression: Advance the orogastric tube 7 cm
[2025-07-24] MEDS: NA SU/NAHCO3/KC/PEG (Golytely) 4,000 ML BTL 4000 ML NG (18:38)
[2025-07-24 20:00] LABS: Albumin, Serum 3.2 gm/dL (3.4-4.8); Anion Gap 10 (7-16); BUN/Creatinine Ratio 35 Ratio (12-20); Blood Urea Nitrogen 21 mg/dL (9-23); Calcium 8.1 mg/dL (8.3-10.6); Calcium (Corrected) 8.7 mg/dL (8.5-10.1); Carbon Dioxide 18.6 mMol/L (20.0-31.0); Chloride 113 mMol/L (98-107); Creatinine (Component) 0.6 mg/dL (0.6-1.3); Estimated Creatinine Clearance 63.5 mL/min (>60); Glucose 215 mg/dL (74-106); Osmolality,Calculated 292 (275-295); Phosphorous 2.3 mg/dL (2.4-5.1); Potassium 4.0 mMol/L (3.4-5.1); Sodium 142 mMol/L (136-145); eGFR > 60 See Note
[2025-07-24] MEDS: RINGERS LACTATED 1000 ML 1,000 ML 75 ML IV (20:39)
--- NOTE | 2025-07-24 20:42 | PC.NURSE ---
called md segovia about patient potassium level at 4.0, patient plan is to receive 6 bag of potassium total and currently on 3rd bag. clarified if they MD still wanted the rest of potassium bags left, stated to continue with the total of 6 bags since patient is on golytely.
[2025-07-24] MEDS: POTASSIUM CHL 10 mEq IVPB 10 MEQ/100 ML BAG 75 MEQ IV (23:41)
[2025-07-25] VITALS (21 sets, daily range): BP systolic 98–148; BP diastolic 60–80; PULSE 62–98; RESP 13–98; TEMP 36–36.8; O2SAT 95–98; BMI 21.1; BMI 20.9
[2025-07-25 01:26] LABS: Hematocrit 24.1 % (36.0-46.0)
[2025-07-25 01:28] LABS: Hemoglobin 8.0 g/dL (12.0-16.0)
[2025-07-25 05:42] LABS: Basophils # (Auto) 0.0 Thou/mm3 (0.0-0.2); Basophils % (Auto) 0 % (0-2.5); Eosinophils # (Auto) 0.0 Thou/mm3 (0.0-0.5); Eosinophils % (Auto) 0 % (0-10); Hematocrit 22.4 % (36.0-46.0); Immature Granulocytes Auto 0.06 Thou/mm3 (0.00-0.00); Lymphocytes # (Auto) 0.5 Thou/mm3 (1.0-4.8); Lymphocytes % (Auto) 7 % (10-50); Mean Corpuscular HGB Conc 33.0 g/dl (31.0-37.0); Mean Corpuscular Hemoglobin 28.0 pg (25.0-35.0); Mean Corpuscular Volume 85 fL (80-100); Monocytes # (Auto) 0.8 Thou/mm3 (0.0-0.8); Monocytes % (Auto) 10 % (0-12); Neutrophils # (Auto) 6.5 Thou/mm3 (1.8-7.7); Neutrophils % (Auto) 82 % (37-80); Nucleated Red Blood Cell # 0.00 Thou/mm3 (0.00-0.00); Nucleated Red Blood Cell % 0 /100 WBC (0); Platelet Count 181 Thou/mm3 (140-440); RDW Standard Deviation 51.3 fL (36.4-46.3); Red Blood Count 2.64 Miln/mm3 (4.00-5.20); White Blood Count 7.9 Thou/mm3 (3.6-11.0)
[2025-07-25 05:50] LABS: Hemoglobin 7.4 g/dL (12.0-16.0)
[2025-07-25 06:17] LABS: Alanine Aminotransferase < 7 U/L (10-49); Albumin, Serum 3.0 gm/dL (3.4-4.8); Albumin/Globulin Ratio 2.0 (1.2-2.2); Alkaline Phosphatase 48 U/L (46-116); Anion Gap 10 (7-16); Aspartate Amino Transferase 13 U/L (0-34); BUN/Creatinine Ratio 58 Ratio (12-20); Bilirubin,Total 0.3 mg/dL (0.3-1.2); Blood Urea Nitrogen 23 mg/dL (9-23); Calcium 8.4 mg/dL (8.3-10.6); Calcium (Corrected) 9.2 mg/dL (8.5-10.1); Carbon Dioxide 21.5 mMol/L (20.0-31.0); Chloride 114 mMol/L (98-107); Creatinine (Component) 0.4 mg/dL (0.6-1.3); Estimated Creatinine Clearance 95.3 mL/min (>60); Globulin 1.5 gm/dL (2.3-3.5); Glucose 128 mg/dL (74-106); Magnesium 1.6 mg/dL (1.6-2.6); Osmolality,Calculated 294 (275-295); Phosphorous 2.0 mg/dL (2.4-5.1); Potassium 3.7 mMol/L (3.4-5.1); Sodium 145 mMol/L (136-145); Thyroid Stimulating Hormone 0.67 uIU/mL (0.55-4.78); Total Protein 4.5 gm/dL (5.7-8.2); eGFR > 60 See Note
[2025-07-25] MEDS: Magnesium Sulfate 4 GM Ivpb 4 GM/50 ML BAG IV (08:39)
[2025-07-25] MEDS: POT PHOS 15 mMol in NS 250 ML 15 MMOL/250 ML BAG 62.5 MMOL IV (08:46)
--- NOTE | 2025-07-25 11:07 | PC.NURSE ---
unable to finish med req due [facility]. Pending dosage for Fentanyl pump.
--- NOTE | 2025-07-25 11:15 | ESPR_ITS ---
<Statement entered by Raul Sheikh MD - 07/25/25 14:37> Patient was examined and case was reviewed with team including attending physician. Note reviewed, I agree with most of its contents and agree with the patient's care as documented by Dr. Eckert Patient seen today at the bedside found awake, alert, orientedx3. No overnight events reported. Vitals and labs reviewed. Repeat hemoglobin today found to be 6.1 was transfused 2 PRBCs and 1 platelet will monitor posttransfusion H&H. Patient currently receiving GoLytely through NG tube and is planned for colonoscopy with GI specialist. Case discussed with my attending Dr. Yomaira Sheikh MD PGY-2 Disclaimer: Despite multiple revisions, due to the dictation software being used, the document bellow may not be free of grammatical errors including phonetic/typographic errors. However, this does not deter from our commitment to providing health care in the patient's best interest in mind. <Statement entered by Brittney Burnette MD - 07/25/25 12:57> I attest that I was physically present for the evaluation, physical examination, lab and imaging review of the patient with the residents. I discussed the case with the residents and agree with the findings and plans of care as documented below. At bedside today, patient continues to have mild abdominal pain. States that added analgesic regimen has helped. She received 3 units of PRBC yesterday, hemoglobin improved from 5.9-8.0. This morning, hemoglobin has dropped to 7.4, repeat hemoglobin this afternoon came back at seven 6.1, we will transfuse 2 more units of PRBC, 1 unit platelet, patient has already received 1 unit of fresh frozen plasma. Patient is receiving GoLytely through NG tube, she is planned for colonoscopy with GI. We will continue with clear liquid diet, IV Protonix, holding anticoagulation. We will obtain posttransfusion H&H. Brittney Burnette MD Documentation for date of: 07/25/25 Subjective Subjective Interval history: Patient was seen at bedside this morning. She reports that her abdominal pain remains uncontrolled despite the pain pump and Mcintosh 10 mg Q6H PRN. Per patient, her Mcintosh 10 regimen is Q4H, regimen was adjusted. Closely monitor for opioid side effects such as sedation and respiratory depression. She received 3 units of pRBCs yesterday and post-transfusion hemoglobin was 8.0. This morning, hemoglobin has decreased to 7.4. Will repeat H&H, and transfuse if <7. Repeat H&H was 6.1 and 18.5 respectively. Will transfuse 2 units of pRBCs and 1 unit of platelet. Continue GoLytely via NG tube at 200 cc an hour. Plan for upper endoscopy and colonoscopy for further evaluation of her current clinical picture. Exam Vital Signs Temp Pulse Resp BP Pulse Ox O2 Del Method 97.8 F 79 22 H 130/70 97 Room Air 07/25/25 08:00 07/25/25 09:06 07/25/25 09:06 07/25/25 08:00 07/25/25 08:00 07/25/25 08:00 Narrative Exam Physical Exam General: awake and in no acute distress, conversational, NG tube in place. 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 Heart: RRR, normal S1 and S2, no murmurs, no edema in lower extremities. Lungs: clear to auscultation with no wheezing or crackles. Abdomen: soft, non distended, pain pump in right lateral abdomen, no guarding and no rebound tenderness. Neurologic: alert and oriented x3, no gross neurological deficit, and patient able to move all 4 extremities. Skin: no rash, no ecchymosis, extremely pale. Objective Labs 07/25/25 11:45 07/25/25 04:59 Labs: Laboratory Results - last 24 hr 07/24/25 07/24/25 07/24/25 11:32 11:45 11:48 WBC 9.4 RBC 2.27 L Hgb 5.9 L* Hct 19.2 L* MCV 85 MCH 26.0 MCHC 30.7 L RDW Std Deviation 68.4 H Plt Count 339 Neut % (Auto) 80 Lymph % (Auto) 11 [place] % (Auto) 7 Eos % (Auto) 1 Baso % (Auto) 0 Neut # (Auto) 7.5 Lymph # (Auto) 1.0 [place] # (Auto) 0.7 Eos # (Auto) 0.1 Baso # (Auto) 0.0 Immature Gran # (Auto) 0.05 H Absolute Nucleated RBC 0.00 Immature Gran % 1 H Nucleated RBC % 0 Smear Path Review Sent to Pathologist PT 15.1 H INR 1.4 H APTT 27.8 Sodium 144 Potassium 2.9 L Chloride 111 H Carbon Dioxide 16.5 L Anion Gap 17 H BUN 41 H Creatinine 0.5 L Estim Creat Clear Calc 76.2 eGFR > 60 BUN/Creatinine Ratio 82 H Glucose 182 H Calculated Osmolality 301 H Calcium 8.8 Corrected Calcium 9.2 Phosphorus Magnesium 1.8 Total Bilirubin 0.3 AST 13 ALT < 7 L Alkaline Phosphatase 59 Troponin I < 0.020 B-Natriuretic Peptide 45 Total Protein 5.3 L Albumin 3.5 Globulin 1.8 L Albumin/Globulin Ratio 1.9 TSH Stool Occult Blood Positive A Blood Type O Positive Antibody Screen NEGATIVE Crossmatch See Detail Blood Bank Wristband ID Yes Blood Bank Comment FFP Ready 07/24/25 07/24/25 07/25/25 15:14 19:35 01:18 WBC RBC Hgb 8.0 L D Hct 24.1 L MCV MCH MCHC RDW Std Deviation Plt Count Neut % (Auto) Lymph % (Auto) [place] % (Auto) Eos % (Auto) Baso % (Auto) Neut # (Auto) Lymph # (Auto) [place] # (Auto) Eos # (Auto) Baso # (Auto) Immature Gran # (Auto) Absolute Nucleated RBC Immature Gran % Nucleated RBC % Smear Path Review PT INR APTT Sodium 143 142 Potassium 2.9 L 4.0 D Chloride 112 H 113 H Carbon Dioxide 18.3 L 18.6 L Anion Gap 13 10 BUN 32 H 21 Creatinine 0.5 L 0.6 Estim Creat Clear Calc 76.2 63.5 eGFR > 60 > 60 BUN/Creatinine Ratio 64 H 35 H Glucose 247 H D 215 H Calculated Osmolality 299 H 292 Calcium 8.5 8.1 L Corrected Calcium 9.1 8.7 Phosphorus 3.0 2.3 L Magnesium Total Bilirubin AST ALT Alkaline Phosphatase Troponin I B-Natriuretic Peptide Total Protein Albumin 3.3 L 3.2 L Globulin Albumin/Globulin Ratio TSH Stool Occult Blood Blood Type Antibody Screen Crossmatch Blood Bank Wristband ID Blood Bank Comment 07/25/25 04:59 WBC 7.9 RBC 2.64 L Hgb 7.4 L Hct 22.4 L MCV 85 MCH 28.0 MCHC 33.0 RDW Std Deviation 51.3 H Plt Count 181 D Neut % (Auto) 82 H Lymph % (Auto) 7 L [place] % (Auto) 10 Eos % (Auto) 0 Baso % (Auto) 0 Neut # (Auto) 6.5 Lymph # (Auto) 0.5 L [place] # (Auto) 0.8 Eos # (Auto) 0.0 Baso # (Auto) 0.0 Immature Gran # (Auto) 0.06 H Absolute Nucleated RBC 0.00 Immature Gran % 1 H Nucleated RBC % 0 Smear Path Review PT INR APTT Sodium 145 Potassium 3.7 Chloride 114 H Carbon Dioxide 21.5 Anion Gap 10 BUN 23 Creatinine 0.4 L Estim Creat Clear Calc 95.3 eGFR > 60 BUN/Creatinine Ratio 58 H Glucose 128 H D Calculated Osmolality 294 Calcium 8.4 Corrected Calcium 9.2 Phosphorus 2.0 L Magnesium 1.6 Total Bilirubin 0.3 AST 13 ALT < 7 L Alkaline Phosphatase 48 Troponin I B-Natriuretic Peptide Total Protein 4.5 L Albumin 3.0 L Globulin 1.5 L Albumin/Globulin Ratio 2.0 TSH 0.67 Stool Occult Blood Blood Type Antibody Screen Crossmatch Blood Bank Wristband ID Blood Bank Comment Quality Measures Quality Measures none Advance care planning discussed with:: patient Assessment & Plan Assessment Current Active Medications: Generic Name Dose Route Start Last Admin Trade Name Freq PRN Reason Stop Dose Admin Hydrocodone Bitart/Acetaminophen 1 tab 07/25/25 08:35 Hydrocodone/Apap 10/325 Tab PO 07/29/25 17:25 Q4HR PRN PAIN SCALE 4-10(Mod-Sev Fluoxetine HCl 20 mg 07/25/25 09:00 07/25/25 08:36 Fluoxetine Hcl 10 Mg Capsule PO 08/24/25 08:59 20 mg DAILY VANESSA Administration Potassium Phosphate 15 mmol in 250 mls @ 62.5 mls/hr 07/25/25 08:10 07/25/25 08:46 Pot Phos 15 Mmol In Ns 250 Ml IV 07/25/25 12:09 62.5 mls/hr X1 ONE Administration Magnesium Sulfate 4 gm in 50 mls @ 12.5 mls/hr 07/25/25 08:11 07/25/25 08:39 Magnesium Sulfate Ivpb IV 07/25/25 12:10 12.5 mls/hr X1 ONE Administration Melatonin 3 mg 07/24/25 16:13 Melatonin 3 Mg Tablet PO HS PRN sleep Naloxone HCl 0.4 mg 07/24/25 17:27 Naloxone Inj 0.4 Mg/Ml Vial IM 08/23/25 17:26 Q3M PRN OPIATE REVERSAL Implanted Fentanyl 1 ea 07/24/25 17:25 Pump SC 08/23/25 17:24 PRN PRN PAIN (CHRONIC) Ondansetron HCl 4 mg 07/24/25 14:40 Ondansetron Inj 2 Mg/Ml Inj 2 Ml IVP 08/23/25 14:39 Q6H PRN NAUSEA OR VOMITING Protocol Pantoprazole Sodium 40 mg 07/25/25 21:00 Pantoprazole 40 Mg Tablet PO 08/24/25 20:59 BID [facility] Protocol Plan 79 year-old female with past medical history significant for ovarian cancer s/p hysterectomy, depression, anxiety, pulmonary embolism and left lower extremity DVT on Xarelto, breast cancer s/p bilateral mastectomy, and chronic pain (with fentanyl pain pump) presented for melena, admitted for GI bleed. #Melena #Possible GI Bleed (upper vs lower GI bleed vs NSAID-induced gastritis or PUD vs unknown source) #Acute blood loss anemia Patient presented with melena concerning for upper GI bleed. DDX: gastric and/or duodenal ulcers vs esophagitis vs gastritis vs diverticulitis vs hemorrhoids vs cancer. Pertinent labs: Hgb 5.9 (L), Hct 19.2 (L), MCV 85; PT 15.1 (H), INR 1.4 (H), PTT 27.8; BUN 41 (H), BUN:Cr 82 (H). Colonoscopy more than 10 years ago. Patient is on Xarelto due to history of DVT. Increased risk for ulcers. Received 3 units of pRBCs on 07/24. Repeat hemoglobin was 8.0. EGD (06/18): normal esophagus, [place]-en-Y gastrojejunostomy with gastrojejunal anastomosis characterized by healthy appearimng mucosa. FOBT (07/24): postive. Plan: - GI consulted, appreciate recs. - Rule out GI source of bleeding, schedule for fiberoptic EGD and colonoscopy with potential biopsy and therapeutic intervention under moderate IV sedation when patient is clear. - Continue with bowel prep with golytely via NG tube at 200 cc/hr, once clear then NPO. - Hold Xarelto in context of suspected GI bleed. - IVF resuscitation to maintain MAP > 65 - IV Pantoprazole 40 mg BID. - Continue pRBC transfusions as needed based on symptoms and hemoglobin trend. - Transfuse if Hgb < 7 (current Hgb 5.9). - Serial H/H. - Monitor vital signs. #Electrolyte abnormalities #Hypophosphatemia Plan: - Monitor daily CMP. - Replete as needed. #History of Pulmonary Embolism #History of DVT On chronic anticoagulation with Xarelto at home. Anticoagulation currently held in the setting of possible GI bleed. Patient at elevated risk for recurrent VTE given history of both PE and DVT. Plan: - Continue to hold Xarelto pending GI evaluation (EGD/colonoscopy). - Employ mechanical prophylaxis with SCDs while off anticoagulation. - Monitor closely for signs of VTE (leg swelling, chest pain, hypoxia, tachycardia). - Resume anticoagulation at earliest safe opportunity once GI source ruled out or controlled. #Chronic Pain #Generalized Muscle Weakness Longstanding history of chronic pain, managed with [employer] fentanyl (per Dr. Ibarra) and Mcintosh 10 mg PO at home. At high risk for opioid adverse effects including sedation, respiratory depression, and functional decline. Muscle weakness may be multifactorial (deconditioning, chronic opioid use, prior surgeries, underlying malignancy). Plan: - Continue [employer] fentanyl for pain. - Monitor closely for opioid side effects: sedation, respiratory depression, constipation. - Narcan available PRN for opioid overdose or respiratory compromise. - Supportive care: bowel regimen (stool softener/laxative) to prevent opioid- induced constipation. #Chronic Constipation Likely secondary to long-term opioid use (fentanyl [employer] pump, Mcintosh at home). At risk for opioid-induced bowel dysfunction and recurrent symptoms. Plan: - Continue GoLYTELY prep via NG tube for colonoscopy. - Reassess after colonoscopy for need of stool softener/laxative and adjust plan accordingly. #History of Ovarian/Breast Cancer Ovarian cancer (2008), breast cancer (1991). S/p hysterectomy and bilateral mastectomy. #Hx COPD Currently stable, no evidence of acute exacerbation (denies increased cough, sputum production, or worsening dyspnea; exam without wheezes/rhonchi; stable oxygenation). Plan: - Maintain supplemental O2 only if needed, goal SpO2 88?92%. - Monitor for signs of exacerbation (increased sputum volume/purulence, worsening dyspnea). #History of Major Depression Patient has a past medical history of major depression per chart review from [facility]. Takes Fluoxetine 20 mg daily at home. No signs of SI or HI. Plan: -Continue home dose Fluoxetine. -Monitor for SI or HI. Health Maintenance Disposition: pending colonoscopy and endoscopy DVT prophylaxis: SCDs GI prophylaxis: Protonix 40 mg BID Diet: NPO after Golytely prep CODE STATUS: DNR Patient plan of care was discussed with the senior resident, Dr. Harry Sheikh, and attending physician, Dr. Burnette. . Ashley Eckert DO PGY-1
--- NOTE | 2025-07-25 11:18 | PC.DIETICIAN ---
Nutrition recommendations: 1. Clear Liquids. Advance as tolerated to: PUD/GERD/Harmon. Consider Low Fiber as needed after colonoscopy. 2. Ensure Plus 240ml BID with lunch and dinner (vanilla). 3. Multivitamins/Minerals. Patient meets ASPEN criteria for Moderate acute disease or injury related malnutrition due to: 1. Significant unintentional weight loss (~25 lb in 2 months). 2. Inadequate energy intake. 3. Moderate muscle wasting. 4. Moderate subcutaneous fat loss.
--- NOTE | 2025-07-25 12:08 | PD.IMPROG ---
Documentation for date of: 07/25/25 Subjective Subjective Interval history: Patient evaluated hemoglobin hematocrit down to 7.4 and 20.4 Patient was scheduled for upper endoscopy and colonoscopy today however she is not clean GoLytely prep to continue Exam Vital Signs Temp Pulse Resp BP Pulse Ox O2 Del Method 97.8 F 79 22 H 130/70 97 Room Air 07/25/25 08:00 07/25/25 09:06 07/25/25 09:06 07/25/25 08:00 07/25/25 08:00 07/25/25 08:00 Objective Labs 07/25/25 04:59 07/25/25 04:59 Labs: Laboratory Results - last 24 hr 07/24/25 07/24/25 07/24/25 11:32 11:45 11:48 WBC 9.4 RBC 2.27 L Hgb 5.9 L* Hct 19.2 L* MCV 85 MCH 26.0 MCHC 30.7 L RDW Std Deviation 68.4 H Plt Count 339 Neut % (Auto) 80 Lymph % (Auto) 11 [place] % (Auto) 7 Eos % (Auto) 1 Baso % (Auto) 0 Neut # (Auto) 7.5 Lymph # (Auto) 1.0 [place] # (Auto) 0.7 Eos # (Auto) 0.1 Baso # (Auto) 0.0 Immature Gran # (Auto) 0.05 H Absolute Nucleated RBC 0.00 Immature Gran % 1 H Nucleated RBC % 0 Smear Path Review Sent to Pathologist PT 15.1 H INR 1.4 H APTT 27.8 Sodium 144 Potassium 2.9 L Chloride 111 H Carbon Dioxide 16.5 L Anion Gap 17 H BUN 41 H Creatinine 0.5 L Estim Creat Clear Calc 76.2 eGFR > 60 BUN/Creatinine Ratio 82 H Glucose 182 H Calculated Osmolality 301 H Calcium 8.8 Corrected Calcium 9.2 Phosphorus Magnesium 1.8 Total Bilirubin 0.3 AST 13 ALT < 7 L Alkaline Phosphatase 59 Troponin I < 0.020 B-Natriuretic Peptide 45 Total Protein 5.3 L Albumin 3.5 Globulin 1.8 L Albumin/Globulin Ratio 1.9 TSH Stool Occult Blood Positive A Blood Type O Positive Antibody Screen NEGATIVE Crossmatch See Detail Blood Bank Wristband ID Yes Blood Bank Comment FFP Ready 07/24/25 07/24/25 07/25/25 15:14 19:35 01:18 WBC RBC Hgb 8.0 L D Hct 24.1 L MCV MCH MCHC RDW Std Deviation Plt Count Neut % (Auto) Lymph % (Auto) [place] % (Auto) Eos % (Auto) Baso % (Auto) Neut # (Auto) Lymph # (Auto) [place] # (Auto) Eos # (Auto) Baso # (Auto) Immature Gran # (Auto) Absolute Nucleated RBC Immature Gran % Nucleated RBC % Smear Path Review PT INR APTT Sodium 143 142 Potassium 2.9 L 4.0 D Chloride 112 H 113 H Carbon Dioxide 18.3 L 18.6 L Anion Gap 13 10 BUN 32 H 21 Creatinine 0.5 L 0.6 Estim Creat Clear Calc 76.2 63.5 eGFR > 60 > 60 BUN/Creatinine Ratio 64 H 35 H Glucose 247 H D 215 H Calculated Osmolality 299 H 292 Calcium 8.5 8.1 L Corrected Calcium 9.1 8.7 Phosphorus 3.0 2.3 L Magnesium Total Bilirubin AST ALT Alkaline Phosphatase Troponin I B-Natriuretic Peptide Total Protein Albumin 3.3 L 3.2 L Globulin Albumin/Globulin Ratio TSH Stool Occult Blood Blood Type Antibody Screen Crossmatch Blood Bank Wristband ID Blood Bank Comment 07/25/25 04:59 WBC 7.9 RBC 2.64 L Hgb 7.4 L Hct 22.4 L MCV 85 MCH 28.0 MCHC 33.0 RDW Std Deviation 51.3 H Plt Count 181 D Neut % (Auto) 82 H Lymph % (Auto) 7 L [place] % (Auto) 10 Eos % (Auto) 0 Baso % (Auto) 0 Neut # (Auto) 6.5 Lymph # (Auto) 0.5 L [place] # (Auto) 0.8 Eos # (Auto) 0.0 Baso # (Auto) 0.0 Immature Gran # (Auto) 0.06 H Absolute Nucleated RBC 0.00 Immature Gran % 1 H Nucleated RBC % 0 Smear Path Review PT INR APTT Sodium 145 Potassium 3.7 Chloride 114 H Carbon Dioxide 21.5 Anion Gap 10 BUN 23 Creatinine 0.4 L Estim Creat Clear Calc 95.3 eGFR > 60 BUN/Creatinine Ratio 58 H Glucose 128 H D Calculated Osmolality 294 Calcium 8.4 Corrected Calcium 9.2 Phosphorus 2.0 L Magnesium 1.6 Total Bilirubin 0.3 AST 13 ALT < 7 L Alkaline Phosphatase 48 Troponin I B-Natriuretic Peptide Total Protein 4.5 L Albumin 3.0 L Globulin 1.5 L Albumin/Globulin Ratio 2.0 TSH 0.67 Stool Occult Blood Blood Type Antibody Screen Crossmatch Blood Bank Wristband ID Blood Bank Comment Impressions Impression: Posthemorrhagic anemia Continue GoLytely prep EGD colonoscopy a.m. Assessment & Plan A&P Narrative # Melena/hematochezia # Acute posthemorrhagic anemia plan Agree with blood transfusion GoLytely via NGT at 200 cc an hour Consent obtained for upper endoscopy as well as colonoscopy for further evaluation of her current clinical picture Other medical problems include COPD Chronic pain syndrome requiring pain pump ovarian carcinoma since 2008 Breast carcinoma since 1991 DVT lower extremities Thank you very much for the opportunity to participate in the care of this patient Time Spent With Patient Time: Total time spent is greater than 50% in coordination of care (as documented) at patient's floor/unit and/or counseling patient:
[2025-07-25 12:23] LABS: Hematocrit 18.5 % (36.0-46.0); Hemoglobin 6.1 g/dL (12.0-16.0)
--- NOTE | 2025-07-25 14:26 | PC.SS ---
Liquefier (PAM) Colleen, along with TOMY Walker, met with the patient at the bedside to complete the initial assessment and discuss the discharge plan. Patient was BIBA with the chief complaint of black tarry stool. SW introduced self, role, and the reason for the consult. The patient agreed to engage in the assessment. Patient is alert and oriented. Patient is 79 y/o Lao-speaking female who reports being a long-term resident at [facility] and wishes to return once medically clear. Patient designated her daughter, Jennifer Flores, , as her surrogate decision maker. Patient's PCP, Dr. Dave. Patient will need non-emergency ambulance transportation. Nextb of Kin: Jennifer Flores [phone] Discharge plan: [facility]. Pending: Patient is pending an EGD/Colonoscopy
[2025-07-25] MEDS: MIDAZOLAM INJ 1 MG/ML VIAL 2 ML IVP (18:25)
--- NOTE | 2025-07-25 19:22 | XR_ITS ---
Examination: AP portable semiupright chest single view Technique: AP portable semiupright chest single view Date and time: July 25, 2025, 1929 hrs., Comparison July 24, 2025 Indications: Post orogastric tube placement. Findings: Orogastric tube in stomach satisfactory position Mild enlargement cardiac contour Bilateral axillary surgical clips. No pneumonia Impression: Orogastric tube satisfactory position.
[2025-07-25] MEDS: PANTOPRAZOLE 40 MG TABLET PO (20:18)
[2025-07-25] MEDS: NA SU/NAHCO3/KC/PEG (Golytely) 4,000 ML BTL 4000 ML PO (20:19)
[2025-07-25 21:43] LABS: Hematocrit 28.1 % (36.0-46.0); Hemoglobin 9.3 g/dL (12.0-16.0)
[2025-07-26] VITALS (16 sets, daily range): BP systolic 135–190; BP diastolic 76–102; PULSE 68–103; RESP 12–98; TEMP 36.1–36.9; O2SAT 95–100; BMI 21.9
--- NOTE | 2025-07-26 00:30 | EKG_ITS ---
[facility] Test Date: 2025-07-26 Pat Name: ED AMOS [facility] Gender: Female Program Technician: YASMAN[place] : 1945 Requested By: Tani Lozano Order Number: [id number] Reading MD: Tani Lozano Measurements Intervals Alvin Rate: 90 P: NC: QRS: -12 QRSD: 87 T: 0 QT: 284 QTc: 349 Interpretive Statements ATRIAL FIBRILLATION WITH ABERRANT CONDUCTION OR VENTRICULAR PREMATURE COMPLEXES LOW QRS VOLTAGE IN PRECORDIAL LEADS POSSIBLE ANTERIOR MYOCARDIAL INFARCTION , OF INDETERMINATE AGE INFERIOR MYOCARDIAL INFARCTION , PROBABLY OLD Compared to ECG 06/16/2025 10:54:24 Ventricular premature complex(es) now present Aberrant conduction of supraventricular beat(s) now present Myocardial infarct finding now present Sinus rhythm no longer present /store/S0/[id number].pdf
[2025-07-26] MEDS: ONDANSETRON INJ 2 MG/ML INJ 2 ML 4 MG IVP (00:54)
--- NOTE | 2025-07-26 00:57 | PC.NURSE ---
md made aware of EKG results showing rhythm change to afib, patient is complaining of stomach pain and feeling nauseous, golytely stopped from ngt tube -md nguyen and timothy ford at bedside -md schafer and patrick stated to stop golytely for now and if patient begins vomitting to call them back, rhythm changed to sinus rhythm with bigeminy, will pass on to day team, no further orders given
[2025-07-26] MEDS: hydrALAZINE INJ 20 MG/ML VIAL 10 MG IVP (01:42)
--- NOTE | 2025-07-26 02:07 | XR_ITS ---
Examination: Abdomen AP single view Technique: AP portable supine abdomen, single view Exam date and time: July 26, 2025, 0222 hrs. Indications: Onset abdominal pain today Findings: Orogastric tube coiled in the stomach Multiple air distended small bowel loops Abdomen surgical clips Analgesia pump in the right lower abdomen Impression: Small bowel obstruction pattern
--- NOTE | 2025-07-26 02:11 | XR_ITS ---
Examination: AP chest single view Technique: AP portable upright chest single view Date and time: July 26, 2025, 0222 hrs., Comparison July 25, 2025 Indications: Vomiting today Findings: Orogastric tube in the stomach, the tip is below the level film No aspiration pneumonia Mild rounding of the left ventricle. Axillary surgical clips. No aspiration pneumonia Impression: No aspiration pneumonia.
--- NOTE | 2025-07-26 02:26 | EVENTNT_ITS ---
Documentation for date of: 07/26/25 Event Note Event Note: Reason for Rapid: Vomiting and abdominal distress. Events Prior to Rapid: * Patient initially noted to have atrial flutter on telemetry; EKG confirmed atrial fibrillation. Patient reported nausea, palpitations, and abdominal pain. * Golytely infusion for planned EGD was held at that time due to abdominal pain. * Later, patient developed hypertension to 190/100 and was treated with hydralazine. Rapid Event: * Approximately one hour after stopping Golytely, rapid was called for vomiting. * On arrival, patient appeared in distress, endorsing abdominal discomfort. * She has had multiple bowel movements overnight from prior Golytely. * Vital signs: BP 150/80, HR variable; telemetry notified team of conversion back to atrial fibrillation during evaluation. Assessment at Bedside: * Patient alert but uncomfortable with abdominal pain and emesis. * Hemodynamically stable. * Concern for electrolyte derangements. Interventions/Orders: * KUB * CBC, renal panel, magnesium, troponin, lactate. * Monitoring on telemetry. * Will reassess pending results and clinical course. Disposition: * Patient remained stable post-event. * Continued close monitoring on the floor with tele. ----- Plan discussed with attending physician Dr. Lexi Lozano MD PGY-1 Internal Medicine
--- NOTE | 2025-07-26 02:26 | PD.RESEVENT ---
Documentation for date of: 07/26/25 Event Note Event Note: Reason for Rapid: Vomiting and abdominal distress. Events Prior to Rapid: Patient initially noted to have atrial flutter on telemetry; EKG confirmed atrial fibrillation. Patient reported nausea, palpitations, and abdominal pain. Golytely infusion for planned EGD was held at that time due to abdominal pain. Later, patient developed hypertension to 190/100 and was treated with hydralazine. Rapid Event: Approximately one hour after stopping Golytely, rapid was called for vomiting. On arrival, patient appeared in distress, endorsing abdominal discomfort. She has had multiple bowel movements overnight from prior Golytely. Vital signs: BP 150/80, HR variable; telemetry notified team of conversion back to atrial fibrillation during evaluation. Assessment at Bedside: Patient alert but uncomfortable with abdominal pain and emesis. Hemodynamically stable. Concern for electrolyte derangements. Interventions/Orders: KUB CBC, renal panel, magnesium, troponin, lactate. Monitoring on telemetry. Will reassess pending results and clinical course. Disposition: Patient remained stable post-event. Continued close monitoring on the floor with tele. ----- Plan discussed with attending physician Dr. Lexi Lozano MD PGY-1 Internal Medicine
[2025-07-26 02:49] LABS: Lactate (Lactic Acid) 1.6 mMol/L (0.4-2.0)
[2025-07-26 02:50] LABS: Basophils # (Auto) 0.0 Thou/mm3 (0.0-0.2); Basophils % (Auto) 0 % (0-2.5); Eosinophils # (Auto) 0.1 Thou/mm3 (0.0-0.5); Eosinophils % (Auto) 1 % (0-10); Hematocrit 29.4 % (36.0-46.0); Hemoglobin 10.1 g/dL (12.0-16.0); Immature Granulocytes Auto 0.07 Thou/mm3 (0.00-0.00); Lymphocytes # (Auto) 0.6 Thou/mm3 (1.0-4.8); Lymphocytes % (Auto) 5 % (10-50); Mean Corpuscular HGB Conc 34.4 g/dl (31.0-37.0); Mean Corpuscular Hemoglobin 28.6 pg (25.0-35.0); Mean Corpuscular Volume 83 fL (80-100); Monocytes # (Auto) 0.7 Thou/mm3 (0.0-0.8); Monocytes % (Auto) 7 % (0-12); Neutrophils # (Auto) 9.1 Thou/mm3 (1.8-7.7); Neutrophils % (Auto) 87 % (37-80); Nucleated Red Blood Cell # 0.00 Thou/mm3 (0.00-0.00); Nucleated Red Blood Cell % 0 /100 WBC (0); Platelet Count 232 Thou/mm3 (140-440); RDW Standard Deviation 47.2 fL (36.4-46.3); Red Blood Count 3.53 Miln/mm3 (4.00-5.20); White Blood Count 10.6 Thou/mm3 (3.6-11.0)
[2025-07-26 03:13] LABS: Alanine Aminotransferase 10 U/L (10-49); Albumin, Serum 3.4 gm/dL (3.4-4.8); Albumin/Globulin Ratio 1.6 (1.2-2.2); Alkaline Phosphatase 58 U/L (46-116); Anion Gap 12 (7-16); Aspartate Amino Transferase 22 U/L (0-34); BUN/Creatinine Ratio 36 Ratio (12-20); Bilirubin,Total 0.5 mg/dL (0.3-1.2); Blood Urea Nitrogen 18 mg/dL (9-23); Calcium 7.6 mg/dL (8.3-10.6); Calcium (Corrected) 8.1 mg/dL (8.5-10.1); Carbon Dioxide 25.3 mMol/L (20.0-31.0); Chloride 108 mMol/L (98-107); Creatinine (Component) 0.5 mg/dL (0.6-1.3); Estimated Creatinine Clearance 74.9 mL/min (>60); Globulin 2.1 gm/dL (2.3-3.5); Glucose 173 mg/dL (74-106); Magnesium 2.0 mg/dL (1.6-2.6); Osmolality,Calculated 294 (275-295); Phosphorous 1.7 mg/dL (2.4-5.1); Potassium 2.8 mMol/L (3.4-5.1); Sodium 145 mMol/L (136-145); Total Protein 5.5 gm/dL (5.7-8.2); Troponin I 0.020 ng/mL (0.0-0.045); eGFR > 60 See Note
[2025-07-26] MEDS: POT PHOS 15 mMol in NS 250 ML 15 MMOL/250 ML BAG 62.5 MMOL IV ×2 (03:34→08:41)
[2025-07-26] MEDS: POTASSIUM CHL 10 mEq IVPB 10 MEQ/100 ML BAG 75 MEQ IV ×3 (03:45→07:18)
--- NOTE | 2025-07-26 05:53 | PRELIM_ITS ---
Radiograph of the chest (single view). July 26, 2025 0217 hours Clinical History: VOMITING Technique: Single frontal view of the chest is obtained Comparison: None Findings: Cardiac silhouette is of normal size. There is no airspace consolidation, pleural effusion or pneumothorax. [place] is noted overlying the right lung. Bilateral axillary surgical clips noted. There is degenerative change in the thoracic spine. Right upper quadrant cholecystectomy clips noted. Impression: No acute cardiopulmonary abnormality. Report Electronically Signed By: Artie Irving 07/26/2025 5:52:55 AM [EST]
--- NOTE | 2025-07-26 05:58 | PRELIM_ITS ---
Radiograph of the abdomen (single view). July 26, 2025 0222 hours Clinical history: ABDOMINAL PAIN Comparison: None Findings: There is gaseous distention of small bowel measuring up to 5.3 cm within the left lower quadrant of the abdomen. Bowel gas appears as far distal as the rectum. There are right upper quadrant cholecystectomy clips. Nasogastric is noted looped in the proximal aspect of the stomach with distal tip projecting retrograde at the GE junction. There are surgical clips in the abdomen bilaterally. There is no obvious free intraperitoneal air or fluid. Old abandoned analgesic pump device noted overlying the right lower quadrant of the abdomen. Impression: Findings worrisome for early/partial small bowel obstruction. Consider further evaluation with CT abdomen/pelvis. Report Electronically Signed By: Artie Irving 07/26/2025 5:57:54 AM [EST]
[2025-07-26 08:21] LABS: Anion Gap 10 (7-16); BUN/Creatinine Ratio 50 Ratio (12-20); Blood Urea Nitrogen 15 mg/dL (9-23); Calcium 8.1 mg/dL (8.3-10.6); Carbon Dioxide 26.9 mMol/L (20.0-31.0); Chloride 110 mMol/L (98-107); Creatinine (Component) 0.3 mg/dL (0.6-1.3); Estimated Creatinine Clearance 124.8 mL/min (>60); Glucose 121 mg/dL (74-106); Osmolality,Calculated 294 (275-295); Phosphorous 2.5 mg/dL (2.4-5.1); Potassium 3.0 mMol/L (3.4-5.1); Sodium 147 mMol/L (136-145); eGFR > 60 See Note
[2025-07-26] MEDS: PANTOPRAZOLE 40 MG TABLET PO ×2 (08:41→20:42)
[2025-07-26] MEDS: RINGERS LACTATED 1000 ML 1,000 ML 75 ML IV (09:59)
[2025-07-26] MEDS: DICLOFENAC 1% TOP GEL 100 GM TUBE TOP ×3 (10:49→21:00)
--- NOTE | 2025-07-26 11:10 | ESPR_ITS ---
<Statement entered by Brittney Burnette MD - 07/26/25 13:59> I attest that I was physically present for the evaluation, physical examination, lab and imaging review of the patient with the residents. I discussed the case with the residents and agree with the findings and plans of care as documented above. Patient had a rapid response called overnight with she was found to have a flutter on library monitor, EKG was obtained, showed A-fib which later converted to sinus rhythm without any intervention. She had another rapid response after vomiting, GoLytely was stopped. This morning at bedside, patient appears comfortable, states that she has some pain around her abdomen but denied any nausea and vomiting. KUB was obtained overnight which showed SBO pattern, NG tube was placed. but patient had multiple bowel movements after. Chest x-ray was also obtained, did not show any infiltration. She also had low potassium and phosphate, repleted accordingly. Patient is planned for EGD today with GI, colonoscopy is postponed for now. Continues to be on Protonix, Xarelto on hold, pain regimen for chronic pain. We will continue to monitor closely, if patient starts having abdominal distention or increasing pain, we will plan for another abdominal imaging. Brittney Burnette MD <Statement entered by Raul Sheikh MD - 07/26/25 11:57> Patient was examined and case was reviewed with team including attending physician. Note reviewed, I agree with most of its contents and agree with the patient's care as documented by Dr. Hancock Patient seen and evaluated at the bedside. Overnight patient had rapid response due to atrial fibrillation and her self resolved without intervention. Had a second rapid response due to vomiting. GoLytely was stopped at this time. And GI services recommended not pursuing colonoscopy at this time and only upper endoscopy which will be done later today. Will reach out to GI services in regards to doing colonoscopy inpatient versus outpatient. Case discussed with my attending Dr. Yomaira Sheikh MD PGY-2 Disclaimer: Despite multiple revisions, due to the dictation software being used, the document bellow may not be free of grammatical errors including phonetic/typographic errors. However, this does not deter from our commitment to providing health care in the patient's best interest in mind. Documentation for date of: 07/26/25 Subjective Subjective Interval history: 07/26/25: Overnight, patient was noted to have aflutter rhythm on library monitor, EKG was ordered which shower afib which later converted without any intervention. Patient repoted nausea, palpittaion and abdominal pain. Night team stopped the GoLytely adminsitration via NGT due to abdominal pain and nausea. Patient was also noted to be hypertensive of 190/100, hydralazine were given with good effect. Later in the night rapid was called for emesis. KUB was ordered which showed SBO pattern, NGT placed on intermittent suction. CXR negative. K was noted to be at 2.8 and phos at 1.7 which were repleted. This morning patient was evaluated and examined at bedside. Patient denies any nausea or emesis at this time. Reports generalized abdominal pain. Per GI, patient will be placed NPO for EGD later today and colonoscopy is postponed to a later time at this point due to abdominal pain and concern for SBO. Patient also reported knee pain, Voltaren gel was provided to patient. Exam Vital Signs Temp Pulse Resp BP Pulse Ox O2 Del Method 98.2 F 79 22 H 157/81 H 97 Room Air 07/26/25 08:00 07/26/25 08:35 07/26/25 08:35 07/26/25 08:00 07/26/25 08:00 07/26/25 08:00 Narrative Exam General: awake and in no acute distress, conversational, NG tube in place. HEENT: normocephalic, atraumatic, dry mucuous membranes of mouth, no mouth ulcers. Heart: RRR, normal S1 and S2, no murmurs, no edema in lower extremities. Lungs: clear to auscultation with no wheezing or crackles. Abdomen: soft, non distended, pain pump in right lateral abdomen, tenderness noted throughout with no guarding and no rebound tenderness. Neurologic: alert and oriented x3, no gross neurological deficit, and patient able to move all 4 extremities. Skin: no rash, no ecchymosis, extremely pale. Objective Labs 07/26/25 02:22 07/26/25 07:45 Labs: Laboratory Results - last 24 hr 07/24/25 07/25/25 07/25/25 11:48 11:45 20:55 WBC RBC Hgb 6.1 L* 9.3 L D Hct 18.5 L* 28.1 L MCV MCH MCHC RDW Std Deviation Plt Count Neut % (Auto) Lymph % (Auto) Nye % (Auto) Eos % (Auto) Baso % (Auto) Neut # (Auto) Lymph # (Auto) Nye # (Auto) Eos # (Auto) Baso # (Auto) Immature Gran # (Auto) Absolute Nucleated RBC Immature Gran % Nucleated RBC % Sodium Potassium Chloride Carbon Dioxide Anion Gap BUN Creatinine Estim Creat Clear Calc eGFR BUN/Creatinine Ratio Glucose Calculated Osmolality Lactic Acid Calcium Corrected Calcium Phosphorus Magnesium Total Bilirubin AST ALT Alkaline Phosphatase Troponin I Total Protein Albumin Globulin Albumin/Globulin Ratio Blood Type O Positive Antibody Screen NEGATIVE Crossmatch See Detail Blood Bank Wristband ID Yes Blood Bank Comment PLATP Ready 07/26/25 07/26/25 02:22 07:45 WBC 10.6 RBC 3.53 L Hgb 10.1 L Hct 29.4 L MCV 83 MCH 28.6 MCHC 34.4 RDW Std Deviation 47.2 H Plt Count 232 D Neut % (Auto) 87 H Lymph % (Auto) 5 L Nye % (Auto) 7 Eos % (Auto) 1 Baso % (Auto) 0 Neut # (Auto) 9.1 H Lymph # (Auto) 0.6 L Nye # (Auto) 0.7 Eos # (Auto) 0.1 Baso # (Auto) 0.0 Immature Gran # (Auto) 0.07 H Absolute Nucleated RBC 0.00 Immature Gran % 1 H Nucleated RBC % 0 Sodium 145 147 H Potassium 2.8 L D 3.0 L Chloride 108 H 110 H Carbon Dioxide 25.3 26.9 Anion Gap 12 10 BUN 18 15 Creatinine 0.5 L 0.3 L Estim Creat Clear Calc 74.9 124.8 eGFR > 60 > 60 BUN/Creatinine Ratio 36 H 50 H Glucose 173 H 121 H D Calculated Osmolality 294 294 Lactic Acid 1.6 Calcium 7.6 L 8.1 L Corrected Calcium 8.1 L Phosphorus 1.7 L 2.5 Magnesium 2.0 Total Bilirubin 0.5 AST 22 ALT 10 Alkaline Phosphatase 58 D Troponin I 0.020 Total Protein 5.5 L Albumin 3.4 Globulin 2.1 L Albumin/Globulin Ratio 1.6 Blood Type Antibody Screen Crossmatch Blood Bank Wristband ID Blood Bank Comment Quality Measures Quality Measures none Advance care planning discussed with:: patient Assessment & Plan Assessment Current Active Medications: Generic Name Dose Route Start Last Admin Trade Name Freq PRN Reason Stop Dose Admin Hydrocodone Bitart/Acetaminophen 1 tab 07/26/25 10:03 Hydrocodone/Apap 10/325 Tab PO 07/30/25 08:34 Q6HR PRN PAIN SCALE 4-10(Mod-Sev Diclofenac Sodium 4 gm 07/26/25 09:55 07/26/25 10:49 Diclofenac 1% Top Gel 100 Gm Tube TOP 08/25/25 09:54 4 gm TID VANESSA Administration Fluoxetine HCl 20 mg 07/25/25 09:00 07/26/25 08:41 Fluoxetine Hcl 10 Mg Capsule PO 08/24/25 08:59 20 mg DAILY VANESSA Administration Potassium Phosphate 15 mmol in 250 mls @ 62.5 mls/hr 07/26/25 03:18 07/26/25 08:41 Pot Phos 15 Mmol In Ns 250 Ml IV 07/26/25 11:17 62.5 mls/hr Q4H VANESSA Administration Lactated Ringer's 1,000 mls @ 75 mls/hr 07/26/25 09:55 07/26/25 09:59 Lactated Ringers IV 08/25/25 09:54 75 mls/hr .[id number] VANESSA Administration Melatonin 3 mg 07/24/25 16:13 Melatonin 3 Mg Tablet PO HS PRN sleep Naloxone HCl 0.4 mg 07/24/25 17:27 Naloxone Inj 0.4 Mg/Ml Vial IM 08/23/25 17:26 Q3M PRN OPIATE REVERSAL Implanted Fentanyl 1 ea 07/24/25 17:25 Pump SC 08/23/25 17:24 PRN PRN PAIN (CHRONIC) Ondansetron HCl 4 mg 07/24/25 14:40 07/26/25 00:54 Ondansetron Inj 2 Mg/Ml Inj 2 Ml IVP 08/23/25 14:39 4 mg Q6H PRN Administration NAUSEA OR VOMITING Protocol Pantoprazole Sodium 40 mg 07/25/25 21:00 07/26/25 08:41 Pantoprazole 40 Mg Tablet PO 08/24/25 20:59 40 mg BID VANESSA Administration Protocol Plan 79 year-old female with past medical history significant for ovarian cancer s/p hysterectomy, depression, anxiety, pulmonary embolism and left lower extremity DVT on Xarelto, breast cancer s/p bilateral mastectomy, and chronic pain (with fentanyl pain pump) presented for melena, admitted for GI bleed. #Melena #Possible GI Bleed (upper vs lower GI bleed vs NSAID-induced gastritis or PUD vs unknown source) #Acute blood loss anemia Patient presented with melena concerning for upper GI bleed. DDX: gastric and/or duodenal ulcers vs esophagitis vs gastritis vs diverticulitis vs hemorrhoids vs cancer. Pertinent labs: Hgb 5.9 (L), Hct 19.2 (L), MCV 85; PT 15.1 (H), INR 1.4 (H), PTT 27.8; BUN 41 (H), BUN:Cr 82 (H). Colonoscopy more than 10 years ago. Patient is on Xarelto due to history of DVT which was held due to GI bleed. Increased risk for ulcers. Thus far, patient has received 5 PRBC, 1 FFP, and 1 Platelets Currently Hgb stable at 10.1 and patient is hemodynamically stable. EGD (06/18): normal esophagus, [place]-en-Y gastrojejunostomy with gastrojejunal anastomosis characterized by healthy appearing mucosa. FOBT (07/24): postive. GI was consulted, who scheduled patient for EGD and colonoscopy for today (07/26/25); however due to increased abdominal pain, N/V and concern for SBO, GI will proceed with EGD at this time and colonoscopy at a later time. Plan: - NPO - EGD with Dr. Harrison today - Pending colonoscopy once clear by GI after EGD - Stopped GoLytely due to increased abdominal pain, N/V - Hold Xarelto in context of suspected GI bleed. - IVF resuscitation to maintain MAP > 65 - IV Pantoprazole 40 mg BID. - Continue pRBC transfusions as needed based on symptoms and hemoglobin trend. - Transfuse if Hgb < 7 (current Hgb 5.9). - Monitor vital signs. #Electrolyte abnormalities #Hypophosphatemia #Hypokalemia Repleted. Plan: - Monitor daily CMP. - Replete as needed. #History of Pulmonary Embolism #History of DVT On chronic anticoagulation with Xarelto at home. Anticoagulation currently held in the setting of possible GI bleed. Patient at elevated risk for recurrent VTE given history of both PE and DVT. Plan: - Continue to hold Xarelto pending GI evaluation (EGD/colonoscopy). - Employ mechanical prophylaxis with SCDs while off anticoagulation. - Monitor closely for signs of VTE (leg swelling, chest pain, hypoxia, tachycardia). - Resume anticoagulation at earliest safe opportunity once GI source ruled out or controlled. #Chronic Pain #Generalized Muscle Weakness Longstanding history of chronic pain, managed with GROUP TESTER fentanyl (per Dr. Ibarra) and [place] 10 mg PO at home. At high risk for opioid adverse effects including sedation, respiratory depression, and functional decline. Muscle weakness may be multifactorial (deconditioning, chronic opioid use, prior surgeries, underlying malignancy). Plan: - Continue GROUP TESTER fentanyl, norco 5 q6 prn for pain. - Voltaren gel was provieded to patient for knee pain - Monitor closely for opioid side effects: sedation, respiratory depression, constipation. - Narcan available PRN for opioid overdose or respiratory compromise. - Supportive care: bowel regimen (stool softener/laxative) to prevent opioid- induced constipation. #Chronic Constipation #Abdominal pain Likely secondary to long-term opioid use (fentanyl GROUP TESTER pump, [place] at home). At risk for opioid-induced bowel dysfunction and recurrent symptoms. 07/26/25: FACILITIES OPERATOR was called for emesis, nausea and abdominal pain. KUB shows SBO pattern. GoLytely was discontinued and NGT was placed on intermittent suction with resolution of nausea and emesis. TTP throughout abdomen was noted with hypoactive bowel sounds. No peritinic signs noted. Plan: - Low threshold for ordering imaging studies for any concern for SBO - Discontinue GoLYTELY prep via NG tube for colonoscopy at this time. We will restart per GI recs - We will reassess after colonoscopy for need of stool softener/laxative and adjust plan accordingly. #History of Ovarian/Breast Cancer Ovarian cancer (2008), breast cancer (1991). S/p hysterectomy and bilateral mastectomy. #Hx COPD Currently stable, no evidence of acute exacerbation (denies increased cough, sputum production, or worsening dyspnea; exam without wheezes/rhonchi; stable oxygenation). Plan: - Maintain supplemental O2 only if needed, goal SpO2 88?92%. - Monitor for signs of exacerbation (increased sputum volume/purulence, worsening dyspnea). #History of Major Depression Patient has a past medical history of major depression per chart review from SNF. Takes Fluoxetine 20 mg daily at home. No signs of SI or HI. Plan: -Continue home dose Fluoxetine. -Monitor for SI or HI. Health Maintenance Disposition: pending colonoscopy and endoscopy DVT prophylaxis: SCDs GI prophylaxis: Protonix 40 mg BID Diet: NPO CODE STATUS: DNR Patient plan of care was discussed with the senior resident, Dr. Harry Sheikh, and attending physician, Dr. Burnette. . Maggy Hancock, PGY-1
--- NOTE | 2025-07-26 16:19 | SUR.PHASEI ---
1608 PATIENT RECEIVED INTO BAY 2, REPORT RECEIVED FROM SOLO LIMA, NO S/S OF DISTRESS NOTED, PATIENT IS DROWSY BUT WAKE AND DENIES ANY DISCOMFORT.
--- NOTE | 2025-07-26 17:13 | XR_ITS ---
Examination: AP chest single view Technique: AP portable semiupright chest single view Date and time: July 26, 2025, 1731 hrs., Comparison July 26, 2025 0229 hrs. Indications: Post orogastric tube placement. Findings: Orogastric tube sidehole is at the GE junction Mild enlargement cardiac contour Bilateral axillary surgical clips No pneumonia Impression: Advance the orogastric tube 5 cm
[2025-07-26] MEDS: MIDAZOLAM INJ 1 MG/ML VIAL 2 ML IVP (17:38)
--- NOTE | 2025-07-26 18:56 | XR_ITS ---
Examination: AP chest single view Technique one AP portable semiupright chest single view Date and time: July 26, 2025, 1906 hrs., Comparison July 26, 2025 1731 hrs. Indications: Reposition orogastric tube. Findings: Orogastric tube in the same position, sidehole at the GE junction The chest film is otherwise unchanged Impression: No change in position of orogastric tube
--- NOTE | 2025-07-26 20:51 | XR_ITS ---
Examination: AP chest single view Technique: AP portable upright chest single view Date and time: July 26, 2025, 2058 hrs. Comparison July 26, 2025 1706 hrs. Indications: Reposition orogastric tube Findings: Orogastric tube in stomach, satisfactory position Chest is otherwise unchanged Impression: Orogastric tube satisfactory position
[2025-07-26] MEDS: NA SU/NAHCO3/KC/PEG (Golytely) 4,000 ML BTL 4000 ML PO (21:19)
[2025-07-27] VITALS (22 sets, daily range): BP systolic 117–179; BP diastolic 64–108; PULSE 70–97; RESP 14–24; TEMP 36.3–37; O2SAT 94–100; BMI 23.1
[2025-07-27] MEDS: RINGERS LACTATED 1000 ML 1,000 ML 75 ML IV ×2 (01:00→18:20)
[2025-07-27] MEDS: DICLOFENAC 1% TOP GEL 100 GM TUBE TOP ×3 (05:15→21:04)
[2025-07-27 05:47] LABS: Basophils # (Auto) 0.0 Thou/mm3 (0.0-0.2); Basophils % (Auto) 0 % (0-2.5); Eosinophils # (Auto) 0.1 Thou/mm3 (0.0-0.5); Eosinophils % (Auto) 2 % (0-10); Hematocrit 27.0 % (36.0-46.0); Immature Granulocytes Auto 0.04 Thou/mm3 (0.00-0.00); Lymphocytes # (Auto) 0.5 Thou/mm3 (1.0-4.8); Lymphocytes % (Auto) 7 % (10-50); Mean Corpuscular HGB Conc 32.6 g/dl (31.0-37.0); Mean Corpuscular Hemoglobin 27.8 pg (25.0-35.0); Mean Corpuscular Volume 85 fL (80-100); Monocytes # (Auto) 0.7 Thou/mm3 (0.0-0.8); Monocytes % (Auto) 10 % (0-12); Neutrophils # (Auto) 5.7 Thou/mm3 (1.8-7.7); Neutrophils % (Auto) 80 % (37-80); Nucleated Red Blood Cell # 0.00 Thou/mm3 (0.00-0.00); Nucleated Red Blood Cell % 0 /100 WBC (0); Platelet Count 186 Thou/mm3 (140-440); RDW Standard Deviation 47.8 fL (36.4-46.3); Red Blood Count 3.17 Miln/mm3 (4.00-5.20); White Blood Count 7.1 Thou/mm3 (3.6-11.0)
[2025-07-27 05:55] LABS: Hemoglobin 8.8 g/dL (12.0-16.0)
[2025-07-27 06:42] LABS: Alanine Aminotransferase 8 U/L (10-49); Albumin, Serum 3.3 gm/dL (3.4-4.8); Albumin/Globulin Ratio 2.1 (1.2-2.2); Alkaline Phosphatase 57 U/L (46-116); Anion Gap 11 (7-16); Aspartate Amino Transferase 20 U/L (0-34); BUN/Creatinine Ratio 17 Ratio (12-20); Bilirubin,Total 0.8 mg/dL (0.3-1.2); Blood Urea Nitrogen < 5 mg/dL (9-23); Calcium 8.4 mg/dL (8.3-10.6); Calcium (Corrected) 9.0 mg/dL (8.5-10.1); Carbon Dioxide 31.9 mMol/L (20.0-31.0); Chloride 99 mMol/L (98-107); Creatinine (Component) 0.3 mg/dL (0.6-1.3); Estimated Creatinine Clearance 124.8 mL/min (>60); Globulin 1.6 gm/dL (2.3-3.5); Glucose 91 mg/dL (74-106); Magnesium 1.7 mg/dL (1.6-2.6); Osmolality,Calculated 280 (275-295); Phosphorous 1.6 mg/dL (2.4-5.1); Potassium 3.0 mMol/L (3.4-5.1); Sodium 142 mMol/L (136-145); Total Protein 4.9 gm/dL (5.7-8.2); eGFR > 60 See Note
[2025-07-27] MEDS: Magnesium Sulfate 4 GM Ivpb 4 GM/50 ML BAG IV (07:29)
[2025-07-27] MEDS: NAPH,KPH MBDB 1 PACKET (1.5 GM) PO (07:29)
--- NOTE | 2025-07-27 07:32 | ESPR_ITS ---
<Statement entered by Brittney Burnette MD - 07/27/25 16:49> I attest that I was physically present for the evaluation, physical examination, lab and imaging review of the patient with the residents. I discussed the case with the residents and agree with the findings and plans of care as documented below. At bedside today, patient appears comfortable and denies any new complaints. Has been receiving GoLytely through NG tube. Hemoglobin level this morning was 8.8, dropped from 10.1, noted to be 9.6 on follow-up level. Potassium was 3.0, phosphate 1.6, magnesium 1.7, repleted accordingly. Patient is planned for colonoscopy with GI today. Brittney Burnette MD <Statement entered by Jannet Garcia MD - 07/27/25 14:34> Note reviewed, I agree with most of its contents and agree with the patient's care as documented by Dr. Hancock. Patient examined at bedside. Labs reviewed. Repleated phos and potassium. Tele reviewed and appears to be in regular rate/rhythm. She denies any more emesis episodes. Tolerating Golytely with NG tube. GI is planning on colonoscopy after bowel adequately cleared. The patient's management plan was discussed with my attending physician Dr. Burnette. Jannet Garcia, PGY-2 Documentation for date of: 07/27/25 Subjective Subjective Interval history: 07/27/25: JHOAN. VSS. Brink was evaluated and examined at bedside. Patient has completed EGD yesterday with no complications. Patient denies any nausea or emesis and reports mild improvement of her abdominal pain. NG tube in place with GoLytely administration at the rate of 100. Per RN, stools have liquid consistency but still slightly dark. Exam Vital Signs Temp Pulse Resp BP Pulse Ox O2 Del Method O2 Flow Rate 98.4 F 78 17 146/64 H 95 Room Air 3 07/27/25 04:00 07/27/25 04:00 07/27/25 04:00 07/27/25 04:00 07/27/25 04:00 07/27/25 04:00 07/26/25 15:57 FiO2 96 07/26/25 09:00 Narrative Exam General: awake and in no acute distress, conversational, NG tube in place. HEENT: normocephalic, atraumatic, dry mucuous membranes of mouth, no mouth ulcers. Heart: RRR, normal S1 and S2, no murmurs, no edema in lower extremities. Lungs: clear to auscultation with no wheezing or crackles. Abdomen: soft, non distended, pain pump in right lateral abdomen, mild tenderness noted throughout with no guarding and no rebound tenderness. Neurologic: alert and oriented x3, no gross neurological deficit, and patient able to move all 4 extremities. Skin: no rash, no ecchymosis, extremely pale. Objective Labs 07/27/25 10:16 07/27/25 04:30 Labs: Laboratory Results - last 24 hr 07/26/25 07/27/25 07:45 04:30 WBC 7.1 RBC 3.17 L Hgb 8.8 L Hct 27.0 L MCV 85 MCH 27.8 MCHC 32.6 RDW Std Deviation 47.8 H Plt Count 186 D Neut % (Auto) 80 Lymph % (Auto) 7 L [place] % (Auto) 10 Eos % (Auto) 2 Baso % (Auto) 0 Neut # (Auto) 5.7 Lymph # (Auto) 0.5 L [place] # (Auto) 0.7 Eos # (Auto) 0.1 Baso # (Auto) 0.0 Immature Gran # (Auto) 0.04 H Absolute Nucleated RBC 0.00 Immature Gran % 1 H Nucleated RBC % 0 Sodium 147 H 142 Potassium 3.0 L 3.0 L Chloride 110 H 99 Carbon Dioxide 26.9 31.9 H Anion Gap 10 11 BUN 15 < 5 L Creatinine 0.3 L 0.3 L Estim Creat Clear Calc 124.8 124.8 eGFR > 60 > 60 BUN/Creatinine Ratio 50 H 17 Glucose 121 H D 91 Calculated Osmolality 294 280 Calcium 8.1 L 8.4 Corrected Calcium 9.0 Phosphorus 2.5 1.6 L Magnesium 1.7 Total Bilirubin 0.8 AST 20 ALT 8 L Alkaline Phosphatase 57 Total Protein 4.9 L Albumin 3.3 L Globulin 1.6 L Albumin/Globulin Ratio 2.1 Quality Measures Quality Measures none Advance care planning discussed with:: patient Assessment & Plan Assessment Current Active Medications: Generic Name Dose Route Start Last Admin Trade Name Freq PRN Reason Stop Dose Admin Hydrocodone Bitart/Acetaminophen 1 tab 07/26/25 10:03 07/27/25 02:52 Hydrocodone/Apap 10/325 Tab PO 07/30/25 08:34 1 tab Q6HR PRN Administration PAIN SCALE 4-10(Mod-Sev Diclofenac Sodium 4 gm 07/26/25 09:55 07/27/25 05:15 Diclofenac 1% Top Gel 100 Gm Tube TOP 08/25/25 09:54 4 gm TID VANESSA Administration Fluoxetine HCl 20 mg 07/25/25 09:00 07/26/25 08:41 Fluoxetine Hcl 10 Mg Capsule PO 08/24/25 08:59 20 mg DAILY VANESSA Administration Lactated Ringer's 1,000 mls @ 75 mls/hr 07/26/25 09:55 07/27/25 01:00 Lactated Ringers IV 08/25/25 09:54 75 mls/hr .[id number] VANESSA Administration Magnesium Sulfate 4 gm in 50 mls @ 12.5 mls/hr 07/27/25 07:05 07/27/25 07:29 Magnesium Sulfate Ivpb IV 07/27/25 11:04 12.5 mls/hr X1 ONE Administration Melatonin 3 mg 07/24/25 16:13 Melatonin 3 Mg Tablet PO HS PRN sleep Implanted Fentanyl 1 ea 07/24/25 17:25 Pump SC 08/23/25 17:24 PRN PRN PAIN (CHRONIC) Ondansetron HCl 4 mg 07/24/25 14:40 07/26/25 00:54 Ondansetron Inj 2 Mg/Ml Inj 2 Ml IVP 08/23/25 14:39 4 mg Q6H PRN Administration NAUSEA OR VOMITING Protocol Pantoprazole Sodium 40 mg 07/25/25 21:00 07/26/25 20:42 Pantoprazole 40 Mg Tablet PO 08/24/25 20:59 40 mg BID VANESSA Administration Protocol Plan 79 year-old female with past medical history significant for ovarian cancer s/p hysterectomy, depression, anxiety, pulmonary embolism and left lower extremity DVT on Xarelto, breast cancer s/p bilateral mastectomy, hx of [place]-en-Y gastrojejunostomy, and chronic pain (with fentanyl pain pump) presented for melena, admitted for GI bleed. #Melena #Possible GI Bleed #Acute blood loss anemia #Hx of [place]-en-Y gastrojejunostomy Patient presented with melena concerning for upper vs lower GI bleed. DDX: diverticulosis vs hemorrhoids vs cancer. Pertinent labs on admission: Hgb 5.9 (L), Hct 19.2 (L), MCV 85; PT 15.1 (H), INR 1.4 (H), PTT 27.8; BUN 41 (H), BUN:Cr 82 (H). Colonoscopy more than 10 years ago. Patient is on Xarelto due to history of DVT which was held due to GI bleed. Increased risk for ulcers. Thus far, patient has received 5 PRBC, 1 FFP, and 1 Platelets Hgb downgraded from 10.1 yesterday to 8.8 today; repeat H&H: Hgb 9.6. Patient is hemodynamically stable. EGD (06/18): normal findings EGD (07/26): Normal findings FOBT (07/24): postive. Plan: - NPO, NGT with GoLytely at rate of 100cc/hr - Colonoscopy with Dr. Harrison today - Held Xarelto in context of suspected GI bleed. - IVF resuscitation to maintain MAP > 65 - IV Pantoprazole 40 mg BID. - Continue pRBC transfusions as needed based on symptoms and hemoglobin trend. - Transfuse if Hgb < 7 (current Hgb 9.6). - Monitor vital signs. #Electrolyte abnormalities #Hypophosphatemia #Hypokalemia Repleted. Plan: - Monitor daily CMP. - Replete as needed. #History of Pulmonary Embolism #History of DVT On chronic anticoagulation with Xarelto at home. Anticoagulation currently held in the setting of possible GI bleed. Patient at elevated risk for recurrent VTE given history of both PE and DVT. Plan: - Continue to hold Xarelto pending GI evaluation (colonoscopy). - Employ mechanical prophylaxis with SCDs while off anticoagulation. - Monitor closely for signs of VTE (leg swelling, chest pain, hypoxia, tachycardia). - Resume anticoagulation at earliest safe opportunity once GI source ruled out or controlled. #Chronic Pain #Generalized Muscle Weakness Longstanding history of chronic pain, managed with COMMUNITY HEALTH NURSE SUPERVISOR fentanyl (per Dr. Ibarra) and [place] 10 mg PO at home. At high risk for opioid adverse effects including sedation, respiratory depression, and functional decline. Muscle weakness may be multifactorial (deconditioning, chronic opioid use, prior surgeries, underlying malignancy). Plan: - Continue COMMUNITY HEALTH NURSE SUPERVISOR fentanyl, norco 5 q6 prn for pain. - Voltaren gel was provieded to patient for knee pain - Monitor closely for opioid side effects: sedation, respiratory depression, constipation. - Narcan available PRN for opioid overdose or respiratory compromise. - Supportive care: bowel regimen (stool softener/laxative) to prevent opioid- induced constipation. #Chronic Constipation #Abdominal pain Likely secondary to long-term opioid use (fentanyl COMMUNITY HEALTH NURSE SUPERVISOR pump, [place] at home). At risk for opioid-induced bowel dysfunction and recurrent symptoms. 07/26/25: FIRM ADMINISTRATOR was called for emesis, nausea and abdominal pain. KUB shows SBO pattern. GoLytely was discontinued and NGT was placed on intermittent suction with resolution of nausea and emesis. TTP throughout abdomen was noted with hypoactive bowel sounds. No peritinic signs noted. Plan: - Low threshold for ordering imaging studies for any concern for SBO - Ordered UA to assess for any underlying UTI/cystitis - We will reassess after colonoscopy for need of stool softener/laxative and adjust plan accordingly. #History of Ovarian/Breast Cancer Ovarian cancer (2008), breast cancer (1991). S/p hysterectomy and bilateral mastectomy. #Hx COPD Currently stable, no evidence of acute exacerbation (denies increased cough, sputum production, or worsening dyspnea; exam without wheezes/rhonchi; stable oxygenation). Plan: - Maintain supplemental O2 only if needed, goal SpO2 88?92%. - Monitor for signs of exacerbation (increased sputum volume/purulence, worsening dyspnea). #History of Major Depression Patient has a past medical history of major depression per chart review from SNF. Takes Fluoxetine 20 mg daily at home. No signs of SI or HI. Plan: -Continue home dose Fluoxetine. -Monitor for SI or HI. Health Maintenance Disposition: pending colonoscopy and endoscopy DVT prophylaxis: SCDs GI prophylaxis: Protonix 40 mg BID Diet: NPO, NGT with running GoLytely at 100cc/hr CODE STATUS: DNR Patient plan of care was discussed with the senior resident, Dr. Garcia, and attending physician, Dr. Burnette. Maggy Hancock, DO PGY-1
[2025-07-27] MEDS: PANTOPRAZOLE 40 MG TABLET PO ×2 (08:21→20:13)
[2025-07-27 10:34] LABS: Hematocrit 29.3 % (36.0-46.0); Hemoglobin 9.6 g/dL (12.0-16.0)
--- NOTE | 2025-07-27 14:29 | PC.NURSE ---
Med Rec is done, unable to verify fentanly patch pump with [facility].
--- NOTE | 2025-07-27 15:21 | PC.SS ---
Rounding note: Colonoscopy today. Discharge plan: ST-SNF.
[2025-07-28] VITALS: BP 123/72; PULSE 86; PULSE 99; RESP 12; TEMP 37; O2SAT 98
[2025-07-28] MEDS: MELATONIN 3 MG TABLET PO (00:16)
[2025-07-28 04:00] VITALS: BP 126/87; PULSE 100; PULSE 91; RESP 20; TEMP 36.6; O2SAT 97
[2025-07-28 04:29] VITALS: BMI 20.7
[2025-07-28] MEDS: DICLOFENAC 1% TOP GEL 100 GM TUBE TOP ×2 (05:05→14:35)
[2025-07-28 05:37] LABS: Basophils # (Auto) 0.0 Thou/mm3 (0.0-0.2); Basophils % (Auto) 0 % (0-2.5); Eosinophils # (Auto) 0.1 Thou/mm3 (0.0-0.5); Eosinophils % (Auto) 1 % (0-10); Hematocrit 27.4 % (36.0-46.0); Immature Granulocytes Auto 0.04 Thou/mm3 (0.00-0.00); Lymphocytes # (Auto) 0.4 Thou/mm3 (1.0-4.8); Lymphocytes % (Auto) 5 % (10-50); Mean Corpuscular HGB Conc 32.1 g/dl (31.0-37.0); Mean Corpuscular Hemoglobin 27.8 pg (25.0-35.0); Mean Corpuscular Volume 86 fL (80-100); Monocytes # (Auto) 0.7 Thou/mm3 (0.0-0.8); Monocytes % (Auto) 9 % (0-12); Neutrophils # (Auto) 6.5 Thou/mm3 (1.8-7.7); Neutrophils % (Auto) 84 % (37-80); Nucleated Red Blood Cell # 0.00 Thou/mm3 (0.00-0.00); Nucleated Red Blood Cell % 0 /100 WBC (0); Platelet Count 194 Thou/mm3 (140-440); RDW Standard Deviation 48.5 fL (36.4-46.3); Red Blood Count 3.17 Miln/mm3 (4.00-5.20); White Blood Count 7.7 Thou/mm3 (3.6-11.0)
[2025-07-28 05:59] LABS: Hemoglobin 8.8 g/dL (12.0-16.0)
[2025-07-28 06:19] LABS: Alanine Aminotransferase < 7 U/L (10-49); Albumin, Serum 3.2 gm/dL (3.4-4.8); Albumin/Globulin Ratio 1.9 (1.2-2.2); Alkaline Phosphatase 58 U/L (46-116); Anion Gap 10 (7-16); Aspartate Amino Transferase 14 U/L (0-34); BUN/Creatinine Ratio 13 Ratio (12-20); Bilirubin,Total 1.1 mg/dL (0.3-1.2); Blood Urea Nitrogen < 5 mg/dL (9-23); Calcium 8.6 mg/dL (8.3-10.6); Calcium (Corrected) 9.2 mg/dL (8.5-10.1); Carbon Dioxide 30.1 mMol/L (20.0-31.0); Chloride 98 mMol/L (98-107); Creatinine (Component) 0.4 mg/dL (0.6-1.3); Estimated Creatinine Clearance 93.6 mL/min (>60); Globulin 1.7 gm/dL (2.3-3.5); Glucose 89 mg/dL (74-106); Magnesium 1.8 mg/dL (1.6-2.6); Osmolality,Calculated 271 (275-295); Phosphorous 2.6 mg/dL (2.4-5.1); Potassium 3.5 mMol/L (3.4-5.1); Sodium 138 mMol/L (136-145); Total Protein 4.9 gm/dL (5.7-8.2); eGFR > 60 See Note
[2025-07-28 08:00] VITALS: BP 132/67; PULSE 82; PULSE 96; RESP 18; TEMP 36.4; O2SAT 95
[2025-07-28] MEDS: RINGERS LACTATED 1000 ML 1,000 ML 75 ML IV (08:10)
[2025-07-28] MEDS: Magnesium Sulfate 4 GM Ivpb 4 GM/50 ML BAG IV (08:13)
[2025-07-28] MEDS: POT PHOS 15 mMol in NS 250 ML 15 MMOL/250 ML BAG 62.5 MMOL IV (08:13)
[2025-07-28] MEDS: PANTOPRAZOLE 40 MG TABLET PO (08:14)
--- NOTE | 2025-07-28 08:54 | PC.SS ---
SS sent updated clinicals via [facility] to [facility] as pt will be a returning resident of theirs. SS pending DC orders to set up transportation.
--- NOTE | 2025-07-28 08:57 | PC.SS ---
SS attempted to contact pt dtr and YUSUF Rodriguez Ni [phone], no answer. VM left with call back.
--- NOTE | 2025-07-28 11:38 | PC.RT ---
SS received a call from pt ashley Rodriguez, SS updated her on possible DC today back to [facility]. IMM provided.
--- NOTE | 2025-07-28 11:57 | PC.SS ---
SS reached out to Team A in regards to DC orders, Per Dr. Negron pending Dr. Harrison clearance.
[2025-07-28 12:00] VITALS: BP 130/85; PULSE 83; PULSE 88; RESP 17; TEMP 36.4; O2SAT 96
--- NOTE | 2025-07-28 13:22 | ESDS_ITS ---
<Statement entered by Jannet Garcia MD - 07/28/25 18:09> Note reviewed, I agree with most of its contents and agree with the patient's care as documented by Dr. Hancock. The patient's management plan was discussed with my attending physician Dr. Goldman. Jannet Garcia, PGY-2 <Statement entered by Luz Marina Negron MD - 07/28/25 16:37> I discussed with and supervised the advisory internship physician who took care of this patient. I personally saw and examined the patient and discussed the assessment and plan with the entire medicine team, including my attending Dr. Goldman, I agree with most of the assessment and plan as documented below Luz Marina Negron M.D. PGY-3 Planned Discharge Date 07/28/25 DS: Providers Provider Date of admission: 07/24/25 14:30 Primary care physician: Physician Karli Primary/Family Admitting Provider: Makenna Valente MD Attending Provider on Admission: Casimiro Goldman MD Consults: 07/24/25 13:46 Consult to Gastroenterology Stat Comment: ugib Consulting Provider: Eber Harrison 07/24/25 17:20 Referral Registered Dietitian Routine Comment: 07/24/25 23:25 Referral Wound Care Routine Comment: 07/24/25 23:26 Referral Nutritional Services Routine Comment: Attending Provider on DC: Dr. Goldman Discharging Provider: Resident Ayleen Anticipated date of discharge: 07/28/25 DS: Diagnosis Problem List Completed Was Problem List Reviewed/Reconciled?: Yes Hospital Course Hospital Course Hospital course: 79 year-old female with past medical history significant for ovarian cancer s/p hysterectomy/oopherectomy, depression, anxiety, pulmonary embolism and left lower extremity DVT on Xarelto, breast cancer s/p bilateral mastectomy, hx of [place]-en-Y gastrojejunostomy, and chronic pain (with fentanyl pain pump) presented for melena, admitted for GI bleed for suspected upper vs lower GI bleed. Patient's lab on admission significant for Hgb 5.9 (L), Hct 19.2 (L), MCV 85; PT 15.1 (H), INR 1.4 (H), PTT 27.8; BUN 41 (H), BUN:Cr 82 (H). Patient's last colonoscopy prior to admission was more than 10 years ago. Of note, patient has been on Xarelto due to history of DVT and PE in the setting of history of multiple malignancies; which was held due to GI bleed. Overall, patient received 5 PRBC, 1 FFP, and 1 Platelets during her hospitalizations. Patient's hemogloblin remained stable at her baseline of 8.8. GI was consulted who recommended both EGD and colonoscopy to further investigate the etiology behind patient's melena and anemia. EGD revealed normal findings without any evidence of bleeding. Colonoscopy showed internal hemorrhoids which were banded, and non bleeding diverticulosis in descending and sigmoid colon. Patient's melena and anemia could be related to resolved GI ulcer due to xarelto medication which has had increased her risk of bleeding vs resolved diverticlosis bleeding or hemorrhoids. Patient's was advanced to regular diet which was tolerated by patients. Patient remains hemodynamically stable with vital signs within normal limits. We will resume patient's home xarelto as it was discussed with GI. Patient's all other medical problems were managed accordingly. Patient is in stable condition for discharge. All questions answered and ED return precautions given. #Melena #Possible GI Bleed #Acute blood loss anemia #Hx of [place]-en-Y gastrojejunostomy #Electrolyte abnormalities #Hypophosphatemia #Hypokalemia #History of Pulmonary Embolism #History of DVT #Chronic Pain #Generalized Muscle Weakness #Chronic Constipation #Abdominal pain #History of Ovarian/Breast Cancer #Hx COPD #History of Major Depression Patient plan of care was discussed with the senior residents, Drs. Garcia and Jamil, and attending physician, Dr. Goldman. Maggy Hancock, DO PGY-1 Status at Discharge Overall status at discharge: patient is back to baseline Time Spent with Patient Time attestation: Total time spent providing and/or coordinating discharge services: Time spent: Greater than 30 minutes Exam Vital Signs Temp Pulse Resp BP Pulse Ox O2 Del Method O2 Flow Rate 97.6 F 88 17 130/85 H 96 Room Air 3 07/28/25 12:07/28/25 12:07/28/25 12:07/28/25 12:07/28/25 12:07/28/25 12:07/27/25 17:35 FiO2 96 07/26/25 09:00 Narrative Exam General: awake and in no acute distress, conversational. HEENT: normocephalic, atraumatic, dry mucuous membranes of mouth, no mouth ulcers. Heart: RRR, normal S1 and S2, no murmurs, no edema in lower extremities. Lungs: clear to auscultation with no wheezing or crackles. Abdomen: soft, non distended, pain pump in right lateral abdomen, mild tenderness noted throughout with no guarding and no rebound tenderness. Neurologic: alert and oriented x3, no gross neurological deficit, and patient able to move all 4 extremities. Skin: no rash, no ecchymosis, pale. Discharge Plan Plan Patient Disposition: Xfer Skilled Nsg Fac (SNF) Disposition Comment: Return to [facility] Patient condition on transfer: Stable Prescriptions/Referrals Prescriptions/Med Rec: Continued Xarelto DVT-PE Treat 30d Start 15 mg (42)- 20 mg (9) tablets,dose pack See Rx Instructions .ROUTE .COMPLEX Qty: 51 0RF Rx Instructions: take one-15 mg tablet twice daily for 21 days, then one-20 mg tablet once daily; must take with meal/food fentanyl pump Patient Comments: prescribed by Dr. Ibarra, [facility] pain mgt, changed every month last changed 07/01/25 Xarelto 20 mg tablet 20 mg PO DAILY Patient Comments: on hold sennosides [senna] 8.6 mg tablet 8.6 mg PO PRN hydrocodone-acetaminophen 10-325 mg tablet 1 tab PO Q6H PRN (Reason: pain) mirabegron [Myrbetriq] 50 mg tablet extended release 24 hr 50 mg PO QDAY oxybutynin chloride 5 mg tablet 5 mg PO Q12H Refresh Optive Slava-3 (PF) 0.5-1-0.5 % dropperette 1 drp ophthalmic (eye) Q6H PRN (Reason: eye irritation) CLA 1,000 mg capsule 1 cap PO DAILY fluoxetine 20 mg capsule 20 mg PO DAILY baclofen 10 mg tablet 10 mg PO Q8H melatonin 1 mg tablet 2 mg PO HS PRN (Reason: sleep) psyllium Packet 1 packet PO HS Rx Instructions: mix into at least 8 oz of water or juice before administering cranberry 450 mg PO DAILY docusate sodium [Colace] 100 mg capsule 100 mg PO QDAY diphenhydramine HCl [Benadryl Allergy] 25 mg tablet 25 mg PO HS ondansetron HCl 4 mg tablet 4 mg PO PRN magnesium hydroxide [Dulcolax (magnesium hydroxide)] 400 mg/5 mL suspension 30 ml PO 4XD PRN (Reason: constipation) iron aspgly,[id number] 150-60-25-1 os-lb-qgd-mg capsule 1 cap PO QDAY Qty: 30 0RF Referrals: No Primary/Family,Physician [Primary Care Provider] - Patient/Caregiver Discharge Instructions Other Discharge Activity Instructions:: Resume previous medications. Follow up with your PCP in 1-2 weeks. Resume regular diet. Return to ED if symptoms worsen. Education Materials: Bleeding Gastrointestinal, Anemia, Anatomy of the Dig estive System Print Language: [place] Stand Alone Forms: Marycarmen Award Info., Patient Portal Info Letter Discharge Order Discharge Orders: Discharge (Routine); Ordered 07/28/25 Ordered By: Jannet Garcia Quality Discharge Quality Measures VTE prophylaxis MD Attestestation MD Attestation I have examined the patient, reviewed labs and imaging findings, discussed the case with the resident(s), and reviewed entered orders. I agree with the plan of care as outlined in this note. Time Spent: [address] Jones MD
--- NOTE | 2025-07-28 14:27 | PC.SS ---
Addendum entered by [place] Juarez 07/28/25 16:15: SS follow up note; SS was contacted by [facility] and provided ETA for 1900. SS updated patient's nurse and Jacqui from [facility] to provide ETA. Addendum entered by [place] Juarez 07/28/25 15:52: SS follow up note; SS contacted [facility] Transportation to check status. At the time there is no assign transportation agency. SS updated patient's daughter, Jennifer via Voicemail and patient's nurse, Tracy. SS provided [employer] with Nurses station contact number and also informed Jacqui from [facility]. Original Note: SS Follow up note: set up transportation with [facility], Reference # [id number]. SS will contact patient's daughter Jennifer and she is agreeable to have patient discharge back to [facility]. SS also contacted Jacqui [facility] and informed her that patient will be discharging today.
[2025-07-28 14:28] LABS: Collection Type, Urine Clean Catch; RBC,Urine 0 /hpf (0-3)
[2025-07-28 14:47] LABS: Bilirubin,Urine Negative (Negative); Blood,Urine Negative (Negative); Clarity,Urine Clear (Clear/Hazy); Color,Urine Lt-Yellow (Lt Yel-Yel); Culture Indicated,Urine Not Indicated; Glucose, Urine Negative (Negative); Ketones,Urine 1+ (Negative); Leukocyte Esterase,Urine Negative (Negative); Nitrite,Urine Negative (Negative); PH,Urine 6.5 (5.0-7.0); Protein,Urine Negative (Neg - Trace); Specific Gravity,Urine 1.011 (1.001-1.035); Squamous Epithelial Cell,Urine < 1 /hpf (0-5); Urobilinogen,Urine Negative mg/dL (0.0-1.0); WBC,Urine 2 /hpf (0-5)
[2025-07-28 16:00] VITALS: BP 140/81; PULSE 73; PULSE 78; RESP 16; TEMP 36.7; O2SAT 97
--- NOTE | 2025-07-28 16:07 | PC.NURSE ---
Report given to Mindi at [facility].
--- NOTE | 2025-07-28 18:55 | PD.IMPROG ---
Documentation for date of: 07/28/25 Subjective Subjective Interval history: Patient evaluated hemoglobin hematocrit 8.8 and 27.4 Upper endoscopy showed Charlotte-en-Y gastrojejunostomy Colonoscopy led to banding of the internal hemorrhoids Anemia most likely is due to [place]-en-Y gastrojejunostomy Patient should be put on iron 3 and 25 mg p.o. twice daily along with vitamin C 500 mg twice daily to be taken together Exam Vital Signs Temp Pulse Resp BP Pulse Ox O2 Del Method O2 Flow Rate 98.1 F 78 16 140/81 H 97 Room Air 3 07/28/25 16:00 07/28/25 16:00 07/28/25 16:00 07/28/25 16:00 07/28/25 16:00 07/28/25 16:00 07/27/25 17:35 FiO2 96 07/26/25 09:00 Objective Labs 07/28/25 04:47 07/28/25 04:47 Labs: Laboratory Results - last 24 hr 07/24/25 07/28/25 07/28/25 11:48 04:47 14:10 WBC 7.7 RBC 3.17 L Hgb 8.8 L Hct 27.4 L MCV 86 MCH 27.8 MCHC 32.1 RDW Std Deviation 48.5 H Plt Count 194 Neut % (Auto) 84 H Lymph % (Auto) 5 L [place] % (Auto) 9 Eos % (Auto) 1 Baso % (Auto) 0 Neut # (Auto) 6.5 Lymph # (Auto) 0.4 L [place] # (Auto) 0.7 Eos # (Auto) 0.1 Baso # (Auto) 0.0 Immature Gran # (Auto) 0.04 H Absolute Nucleated RBC 0.00 Immature Gran % 1 H Nucleated RBC % 0 Sodium 138 Potassium 3.5 D Chloride 98 Carbon Dioxide 30.1 Anion Gap 10 BUN < 5 L Creatinine 0.4 L Estim Creat Clear Calc 93.6 eGFR > 60 BUN/Creatinine Ratio 13 Glucose 89 Calculated Osmolality 271 L Calcium 8.6 Corrected Calcium 9.2 Phosphorus 2.6 Magnesium 1.8 Total Bilirubin 1.1 AST 14 ALT < 7 L Alkaline Phosphatase 58 Total Protein 4.9 L Albumin 3.2 L Globulin 1.7 L Albumin/Globulin Ratio 1.9 Ur Collection Type Clean Catch Urine Color Lt-Yellow Urine Clarity Clear Urine pH 6.5 Ur Specific [place] 1.011 Urine Protein Negative Urine Glucose (UA) Negative Urine Ketones 1+ A Urine Blood Negative Urine Nitrite Negative Urine Bilirubin Negative Urine Urobilinogen (Auto) Negative Ur Leukocyte Esterase Negative Urine RBC 0 Urine WBC 2 Ur Squamous Epith Cells < 1 Urine Bacteria None Ur Culture Indicated? Not Indicated Crossmatch See Detail Impressions Impression: # Anemia multifactorial # [place]-en-Y gastrojejunostomy # Status post banding of the internal hemorrhoids Continue current management Iron sulfate 324 mg p.o. twice daily along with vitamin C 500 mg twice daily If this does not bring the hemoglobin hematocrit up recommend intravenous iron infusion Assessment & Plan A&P Narrative # Melena/hematochezia # Acute posthemorrhagic anemia plan Agree with blood transfusion GoLytely via NGT at 200 cc an hour Consent obtained for upper endoscopy as well as colonoscopy for further evaluation of her current clinical picture Other medical problems include COPD Chronic pain syndrome requiring pain pump ovarian carcinoma since 2008 Breast carcinoma since 1991 DVT lower extremities Thank you very much for the opportunity to participate in the care of this patient Time Spent With Patient Time: Total time spent is greater than 50% in coordination of care (as documented) at patient's floor/unit and/or counseling patient:
[2025-07-28 19:13] VITALS: BP 111/77; PULSE 105; RESP 18; TEMP 36.8; O2SAT 96
== END 2025-07-28 19:01 | disposition skilled nursing facility (03) | DRG 347 ==
LOC: SERX 13:25 → SERHOLD 15:11 → S2NX 16:19
PROVIDERS: Nurse Practitioner Family; Specialist; Student in an Organized Health Care Education/Training Program; Admitting Provider Internal Medicine; Emergency Provider Family Medicine; Visit Provider Student in an Organized Health Care Education/Training Program
PROC: 0DJ08ZZ Inspection of Upper Intestinal Tract, Via Natural or Artificial Opening Endoscopic (ICD-10-PCS; CPT 43239; principal; 2025-07-26 15:15)
PROC: 0DJD8ZZ Inspection of Lower Intestinal Tract, Via Natural or Artificial Opening Endoscopic (ICD-10-PCS; CPT 45378; principal; 2025-07-27 16:30)
DX: K64.2 Third degree hemorrhoids (principal); K57.31 Diverticulosis of large intestine without perforation or abscess with bleeding; D62 Acute posthemorrhagic anemia; I48.92 Unspecified atrial flutter; K56.609 Unspecified intestinal obstruction, unspecified as to partial versus complete obstruction; Z85.3 Personal history of malignant neoplasm of breast; Z85.43 Personal history of malignant neoplasm of ovary; Z66 Do not resuscitate; G89.4 Chronic pain syndrome; J44.9 Chronic obstructive pulmonary disease, unspecified; Z79.01 Long term (current) use of anticoagulants; Z86.718 Personal history of other venous thrombosis and embolism; Z90.710 Acquired absence of both cervix and uterus; Z90.13 Acquired absence of bilateral breasts and nipples; E83.39 Other disorders of phosphorus metabolism; Z86.711 Personal history of pulmonary embolism; I48.91 Unspecified atrial fibrillation; F32.9 Major depressive disorder, single episode, unspecified; Z98.0 Intestinal bypass and anastomosis status; K44.9 Diaphragmatic hernia without obstruction or gangrene; I10 Essential (primary) hypertension; K64.8 Other hemorrhoids; Z87.891 Personal history of nicotine dependence; Z79.899 Other long term (current) drug therapy; Z96.653 Presence of artificial knee joint, bilateral; Z96.89 Presence of other specified functional implants; Z98.84 Bariatric surgery status; E87.6 Hypokalemia; Z88.5 Allergy status to narcotic agent; Z88.8 Allergy status to other drugs, medicaments and biological substances
CPT/HCPCS: 36415; 36430; 71045; 74018; 80048; 80053; 80069; 81001; 82270; 83605; 83735; 83880; 84100; 84443; 84484; 85014; 85018; 85025; 85610; 85730; 86850; 86900; 86901; 86923; 86927; 86965; 87081; 93005; 96361; 96365; 96366; 96375; 96376; 99285; A4217; A4649; J0360; J1200; J2250; J2405; J2470; J3010; J3475; J3480; J7120; J7999; P9016; P9035; P9060; A9270